=== PATIENT | female | born 1935 | race Caucasian/White ===

== ENCOUNTER → 2016-06-11 | Outpatient (CLI) | payer BC ==
[~2016-06-11] MED LIST: ACET1TAB84 PO; ASMTWH INH; ASPEC81 PO; BENZ100C84 PO; CLB100 PO; CLTP PO; EVS60 PO; FSM70 PO; LANS15CA6 PO; LIDO5DIS10 TD; METO25TA3 PO; MULT-506 PO; OMEG10007 PO; SIMV10TA2 PO; TRAM-10 PO
--- NOTE | 2016-06-11 16:26 | MAMMOGRAPHY REPORT ---
BILATERAL DIGITAL SCREENING MAMMOGRAM WITH CAD: 06/11/2016 TECHNIQUE: Current study was also evaluated with a Computer Aided Detection (CAD) system. Bilatera l CC and MLO views were obtained. COMPARISON: Comparison is made to exams dated: 06/07/2015 mammogram, 06/03/2014 mammogram, 04/17/2012 m ammogram, 05/13/2013 mammogram, 04/20/2013 mammogram, and 04/17/2011 mammogram - [facility]. BREAST COMPOSITION: The tissue of both breasts is heterogeneously dense, which may obscure small ma sses. FINDINGS: No suspicious masses, calcifications, or areas of architectural distortion are noted in e ither breast. There has been no significant interval change compared to prior exams. Bilateral rachel gn-appearing calcifications are not significantly changed. IMPRESSION: ACR BI-RADS CATEGORY 2: BENIGN There is no mammographic evidence of malignancy. A 1 year screening mammogram is recommended. The p atient will receive written notification of the results. Approximately 10% of breast cancers are not detected with mammography. A negative mammographic repor t should not delay biopsy if a clinically suggestive mass is present. Rachel Lewis M.D. ah/:06/11/2016 15:20:21 Nursing Staffing Coordinator: Mimi LOVE(R)(M), [facility] letter sent: Normal 1/2 BI-RADS Code: ACR BI-RADS Category 2: Benign
== END | disposition home or self-care (01) ==
LOC: C.MAMM 13:24
PROVIDERS: ATTEND Obstetrics & Gynecology
DX: Z12.31 Encounter for screening mammogram for malignant neoplasm of breast (principal)

== ENCOUNTER → 2016-08-15 | Outpatient (CLI) | payer BC ==
[2016-08-15 15:58] LABS: BASO % 0.1 %; BASO ABS # 0.01 K/uL (0-0.2); COMPLETE YES; EOS % 1.6 %; HEMATOCRIT 38.2 % (37-47); IG% 0.2 %; LYMPH % 25.5 %; LYMPH ABS # 2.36 K/uL (1.2-3.4); MEAN CELL VOLUME 95.5 fL (80-100); MEAN CORPUSCULAR HEMOGLOBIN 29.8 pg (25-34); MEAN CORPUSCULAR HGB CONC 31.2 g/dl (32-36); MEAN PLATELET VOLUME 10.5 fL (7.4-10.4); MONO % 7.8 %; NEUT % 64.8 %; PLATELET COUNT 258 K/uL (130-400); WHITE BLOOD COUNT 9.24 K/uL (4.8-10.8)
[2016-08-15 18:52] LABS: ALT/SGPT 21 U/L (12-78); AST/SGOT 18 U/L (15-37)
[2016-08-15 18:54] LABS: ALKALINE PHOSPHATASE 64 U/L (45-117)
== END | disposition home or self-care (01) ==
LOC: C.LAB1850 14:38
PROVIDERS: ATTEND Internal Medicine Rheumatology
DX: M06.9 Rheumatoid arthritis, unspecified (principal); M54.2 Cervicalgia; Z79.899 Other long term (current) drug therapy

== ENCOUNTER → 2017-02-13 | Outpatient (CLI) | payer BC ==
[2017-02-13 13:20] LABS: BASO % 0.2 %; BASO ABS # 0.02 K/uL (0-0.2); COMPLETE YES; EOS % 1.4 %; HEMATOCRIT 39.8 % (37-47); IG% 0.1 %; LYMPH % 23.2 %; LYMPH ABS # 1.97 K/uL (1.2-3.4); MEAN CELL VOLUME 94.5 fL (80-100); MEAN CORPUSCULAR HEMOGLOBIN 29.9 pg (25-34); MEAN CORPUSCULAR HGB CONC 31.7 g/dl (32-36); MEAN PLATELET VOLUME 10.4 fL (7.4-10.4); MONO % 7.8 %; NEUT % 67.3 %; PLATELET COUNT 274 K/uL (130-400); RED BLOOD COUNT 4.21 M/uL (4.2-5.4); WHITE BLOOD COUNT 8.49 K/uL (4.8-10.8)
[2017-02-13 13:53] LABS: ALT/SGPT 22 U/L (12-78); AST/SGOT 22 U/L (15-37); CREATININE 0.97 mg/dl (0.60-1.20)
[2017-02-13 13:54] LABS: ALKALINE PHOSPHATASE 72 U/L (45-117)
== END | disposition home or self-care (01) ==
LOC: C.LAB1850 12:07
PROVIDERS: ATTEND Internal Medicine Rheumatology
DX: Z51.81 Encounter for therapeutic drug level monitoring (principal); M06.9 Rheumatoid arthritis, unspecified; Z79.899 Other long term (current) drug therapy

== ENCOUNTER → 2017-06-10 | Outpatient (CLI) | payer BC ==
[2017-06-10 16:55] LABS: INFLUENZA B ANTIGEN Neg for Influ B (NEG)
== END | disposition home or self-care (01) ==
LOC: C.LAB1850 15:37
PROVIDERS: ATTEND Internal Medicine Pulmonary Disease
DX: J44.9 Chronic obstructive pulmonary disease, unspecified (principal); R05 Cough; J45.909 Unspecified asthma, uncomplicated; J11.1 Influenza due to unidentified influenza virus with other respiratory manifestations

== ENCOUNTER → 2017-06-17 | Outpatient (CLI) | payer BC ==
--- NOTE | 2017-06-17 16:43 | DIAGNOSTIC IMAGING REPORT ---
CHEST 2 VIEWS ROUTINE CLINICAL HISTORY: J20.9 Acute [id number] dyspnea COMPARISON STUDY: 04/11/2015 FINDINGS: Stable emphysematous change bilaterally. Scattered chronic parenchymal fibrotic change. Unchanged postoperative change right midlung. No acute or superimposed infiltrate. IMPRESSION: Emphysematous change. Chronic fibrotic change. No acute process. No significant change from the prior study. The above report was generated using voice recognition software. It may contain grammatical, syntax or spelling errors. Electronically signed by: Daniel Ramsey M.D. 06/17/2017 4:41 PM Dictated Date/Time: 06/17/2017 4:40 PM
== END | disposition home or self-care (01) ==
LOC: C.RAD1850 16:28
PROVIDERS: ATTEND Physician Assistant Medical
DX: J20.9 Acute bronchitis, unspecified (principal); R05 Cough

== ENCOUNTER → 2017-06-28 | Outpatient (CLI) | payer BC | END | disposition home or self-care (01) | LOC: C.LABSPEC 14:42 | PROVIDERS: ATTEND Physician Assistant Medical | DX: R05 Cough (principal) ==

== ENCOUNTER → 2017-07-23 | Outpatient (CLI) | payer BC ==
[~2017-07-23] MED LIST changes: +ALBU18002 PO; +ASPI81TA21 PO; +CALCTAB7 PO; +CELE100C PO; +GUAI1TAB55 PO; +LANS15TA2 PO; +LIDO1PAD2 TD; +MOME110A INH; +MOXI400T2 PO; +MULT-513 PO; +MULT-663 PO; +ONDA4TAB46 PO; +PRED-301 PO; +RALO60TA30 PO
--- NOTE | 2017-07-25 07:48 | MAMMOGRAPHY REPORT ---
BILATERAL DIGITAL SCREENING MAMMOGRAM WITH CAD: 07/23/2017 CLINICAL HISTORY: Routine screening. Patient has no complaints. TECHNIQUE: Bilateral CC and MLO views were obtained. Current study was also evaluated with a Compute r Aided Detection (CAD) system. COMPARISON: Comparison is made to exams dated: 06/11/2016 mammogram, 06/07/2015 mammogram, 06/03/2014 david mogram, 05/13/2013 mammogram, 04/20/2013 mammogram, and 04/17/2012 mammogram - [facility]. BREAST COMPOSITION: The tissue of both breasts is heterogeneously dense, which may obscure small mas ses. FINDINGS: The exam is slightly suboptimal due to inability of the patient to adequately position for the exam, particularly the MLO views. Within this limitation, there are moderate vascular calcificat ions and scattered benign rim calcifications in the breasts. No suspicious mass, architectural disto rtion or cluster of microcalcifications is seen. IMPRESSION: ACR BI-RADS CATEGORY 1: NEGATIVE There is no mammographic evidence of malignancy. A 1 year screening mammogram is recommended. The pa tient will receive written notification of the results. Approximately 10% of breast cancers are not detected with mammography. A negative mammographic report should not delay biopsy if a clinically suggestive mass is present. Shamika Acosta M.D. ay/:07/23/2017 15:02:55 Studio Set Up Worker: Mimi Barriga RT(R)(Abelino), [facility] letter sent: Normal 1/2 BI-RADS Code: ACR BI-RADS Category 1: Negative
== END | disposition home or self-care (01) ==
LOC: C.MAMM 13:24
PROVIDERS: ATTEND Internal Medicine Pulmonary Disease
DX: Z12.31 Encounter for screening mammogram for malignant neoplasm of breast (principal)

== ENCOUNTER → 2017-07-25 | Outpatient (CLI) | payer BC | END | disposition home or self-care (01) | LOC: C.LAB1850 16:20 | PROVIDERS: ATTEND Internal Medicine Pulmonary Disease | DX: R04.2 Hemoptysis (principal) ==

== ENCOUNTER → 2017-07-25 | Outpatient (CLI) | payer BC ==
--- NOTE | 2017-07-25 16:07 | DIAGNOSTIC IMAGING REPORT ---
CHEST 2 VIEWS ROUTINE CLINICAL HISTORY: Cough. COMPARISON STUDY: Chest radiograph June 17, 2017 and April 11, 2015. FINDINGS: There is no pneumothorax or pleural effusion. Postoperative findings within the right lung are noted. There is no evidence for pulmonary edema. Cardiomediastinal silhouette is normal. Incidental note is made of mild S-shaped scoliosis of the thoracolumbar spine. A 1.6 cm lucency within the left midlung with possible air-fluid level remains unchanged. This is chronic. Right infrahilar linear opacity adjacent to surgical material may reflect scar. This is unchanged. Reticulonodular interstitial thickening within the lungs has slightly increased. IMPRESSION: 1. Slight increase in reticulonodular interstitial thickening within the lungs. 2. No lobar consolidation. Electronically signed by: Cornelius Nathan M.D. 07/25/2017 4:06 PM Dictated Date/Time: 07/25/2017 4:02 PM
== END | disposition home or self-care (01) ==
LOC: C.LAB1850 15:14
PROVIDERS: ATTEND Internal Medicine Pulmonary Disease
DX: R05 Cough (principal)

== ENCOUNTER → 2017-07-30 | Outpatient (CLI) | payer BC ==
[~2017-07-30] MED LIST changes: +IPRA1AER2 INH
[2017-07-30 14:41] LABS: BASO % 0.3 %; BASO ABS # 0.02 K/uL (0-0.2); EOS % 0.4 %; EOS ABS # 0.03 K/uL (0-0.5); HEMATOCRIT 36.1 % (37-47); IG# 0.01 K/uL (0.00-0.02); LYMPH % 19.3 %; LYMPH ABS # 1.36 K/uL (1.2-3.4); MEAN CELL VOLUME 92.6 fL (80-100); MEAN CORPUSCULAR HEMOGLOBIN 30.8 pg (25-34); MEAN CORPUSCULAR HGB CONC 33.2 g/dl (32-36); MEAN PLATELET VOLUME 9.7 fL (7.4-10.4); MONO ABS # 0.56 K/uL (0.11-0.59); NEUT % 71.9 %; NEUT ABS # 5.05 K/uL (1.4-6.5); PLATELET COUNT 315 K/uL (130-400); RED CELL DISTRIBUTION WIDTH CV 14.7 % (11.5-14.5); RED CELL DISTRIBUTION WIDTH SD 49.8 fL (36.4-46.3); WHITE BLOOD COUNT 7.03 K/uL (4.8-10.8)
[2017-07-30 15:14] LABS: ALBUMIN 3.1 gm/dl (3.4-5.0); ALT/SGPT 22 U/L (12-78); AST/SGOT 22 U/L (15-37); BLOOD UREA NITROGEN 14 mg/dl (7-18); CALCIUM 8.8 mg/dl (8.5-10.1); CARBON DIOXIDE 25 mmol/L (21-32); CREATININE 0.98 mg/dl (0.60-1.20); GLUCOSE 107 mg/dl (70-99); POTASSIUM 4.3 mmol/L (3.5-5.1); SODIUM 128 mmol/L (136-145)
[2017-07-30 15:16] LABS: ALKALINE PHOSPHATASE 70 U/L (45-117); TOTAL PROTEIN 7.3 gm/dl (6.4-8.2)
== END | disposition home or self-care (01) ==
LOC: C.LAB1850 13:42
PROVIDERS: ATTEND Internal Medicine Cardiovascular Disease
DX: R04.2 Hemoptysis (principal)

== ENCOUNTER 2017-07-31 17:24 | Inpatient (IN) | payer OTHER, BC ==
[~2017-07-31] VITALS: Ht 162.6 cm; Wt 37.3 kg
[~2017-07-31 17:24] MED LIST changes: -ALBU18002 PO; -ASPI81TA21 PO; -CALCTAB7 PO; -CELE100C PO; -GUAI1TAB55 PO; -IPRA1AER2 INH; -LANS15TA2 PO; -LIDO1PAD2 TD; -MOME110A INH; -MOXI400T2 PO; -MULT-513 PO; -MULT-663 PO; -ONDA4TAB46 PO; -PRED-301 PO; -RALO60TA30 PO
[2017-07-31] MEDS ORDERED: ONDANSETRON INJ 2 MG/ML 2 ML VIAL IV STA (17:44)
[2017-07-31] MEDS ORDERED: SODIUM CHLORIDE 0.9% 1000ML 1,000 ML IV STA ×2 (17:44→20:54)
[2017-07-31] MEDS ORDERED: ALBUT/IPRATROP 3MG/0.5MG NEB 3 ML VIAL INH STA (17:44)
--- NOTE | 2017-07-31 17:54 | EMERGENCY ROOM VISIT NOTE ---
History Report prepared by Renae: Suzie King Under the Supervision of: Dr. Jacques Banks M.D. First contact with patient: 17:39 Chief Complaint: GI ASSESSMENT Stated Complaint: WEAKNESS, NAUSEA, COUGHING UP BLOOD History of Present Illness The patient is a 82 year old female who presents to the Emergency Room with complaints of a GI assessment today. The patient reports having extreme nausea and states that she has not eaten in 4 days. The patient states that she took Zofran but that it did not alleviate her nausea. The patient reports that she is not nauseous lying down, but that she gets nauseous when she stands. She also reports feeling weak and having the chills, but denies having fevers, vomiting, and burning with urination. The patient states that she has been coughing up blood and sputum, but states that there has been more blood than sputum. She reports that she has had a cough since the beginning of May, but reports that coughing up blood began about a week ago. The patient reports that her stool has been dark brown, but not black. She states that she saw her dye reel operator helper Dr. Cardona yesterday who ordered labs for the patient. The patient reports that her PCP and media analyst Dr. Mckay placed her on Bactrim, but that she stopped taking it 6 days ago because it made her too sick. She reports that she started taking 5 mg of Prednisone yesterday. The patient denies being on blood thinners. Source of History: patient Onset: today Position: other (GI system ) Quality: other (assessment) Associated Symptoms: + chills, + nausea, + weakness, No fevers, No vomiting , No urinary symptoms Review of Systems See HPI for pertinent positives and negatives. A total of ten systems were reviewed and were otherwise negative. Past Medical & Surgical Medical Problems: (1) Gastrointestinal problem Family History No pertinent family history Social History Smoking Status: Never Smoker Marital Status: Current/Historical Medications Scheduled Acetaminophen (Tylenol Arthritis Ext Rel), 650 MG PO Q8HR PRN Albuterol Sulfate (Proair Respiclick), 2 PUFF PO Q4 Aspirin Enteric Coated (Ecotrin Or Generic), 81 MG PO 2XWK Lansoprazole (Prevacid Solutab), 15 MG PO PRN Metoprolol Succ (Toprol Xl) (Toprol-Xl), 12.5 MG PO BID Mometasone Furoate (Inhalation (Asmanex 30 Metered Doses), 1 PUFF INH qp Multiple Minerals W/ Vitamins (Citracal Plus), 2 TABS PO DAILY Multivitamins/Minerals (Mvi With Minerals), 1 TAB PO DAILY Prednisone (Prednisone), 5 MG PO DAILY Raloxifene Hcl (Evista), 60 MG PO DAILY Simvastatin (Zocor), 10 MG PO QPM Scheduled PRN Celecoxib (Celebrex), 100 MG PO DAILY PRN for Pain Lidocaine (Lidocaine), 1 PATCH TD DAILY PRN for Pain Ondansetron Hcl (Zofran), 4 MG PO Q6 PRN for Nausea Allergies Coded Allergies: Meperidine (Verified Allergy, Mild, RESP ARREST, 11/02/09) Midazolam (Verified Allergy, Mild, RESP ARREST, 11/02/09) Amoxicillin (Verified Allergy, Unknown, FROM AUGMENTIN, 11/02/09) Clavulanic Acid (Verified Allergy, Unknown, 06/03/09) Replaces AUGMENTIN 250 Codeine (Verified Allergy, Unknown, 06/03/09) Penicillins (Verified Allergy, Unknown, 06/03/09) Replaces AUGMENTIN 250 Ibuprofen (Verified Adverse Reaction, Mild, UPSETS HER STOMACH, 11/02/09) Physical Exam Vital Signs Date Time Temp Pulse Resp B/P (MAP) Pulse Ox O2 Delivery O2 Flow Rate FiO2 08/01/17 00:07 86 16 179/78 94 Room Air 07/31/17 22:49 99 07/31/17 22:37 91 23 183/108 97 Room Air 07/31/17 21:04 86 23 131/88 95 Room Air 07/31/17 19:24 83 22 153/84 98 Room Air 07/31/17 18:31 77 07/31/17 17:28 36.5 83 18 147/75 96 Room Air Physical Exam GENERAL: Awake, alert, fatigued-appearing, cachectic, in no distress HENT: Normocephalic, atraumatic. Dry mucous membranes, otherwise unremarkable oropharynx. EYES: Normal conjunctiva. Sclera non-icteric. NECK: Supple. No nuchal rigidity. FROM. No JVD. RESPIRATORY: Scant, intermittent isolated wheeze, otherwise clear. CARDIAC: Regular rate, normal rhythm. Extremities warm and well perfused. Pulses equal. ABDOMEN: Soft, non-distended. No tenderness to palpation. No rebound or guarding. No masses. RECTAL: Deferred. MUSCULOSKELETAL: Chest examination reveals no tenderness. The back is symmetrical on inspection without obvious abnormality. There is no CVA tenderness to palpation. No joint edema. LOWER EXTREMITIES: Calves are equal size bilaterally and non-tender. No edema. No discoloration. NEURO: Normal sensorium. No sensory or motor deficits noted. SKIN: No rash or jaundice noted. Medical Decision & Procedures ER Provider Diagnostic Interpretation: Radiology results as stated below per my review and radiologist interpretation: CHEST ONE VIEW PORTABLE HISTORY: Generalized abdominal pain. COMPARISON: Chest 07/25/2017. FINDINGS: The lungs remain hyperexpanded. No pleural effusions. No pneumothorax. The heart remains mildly enlarged. Suture material seen within the right lung. Scattered irregular densities within the bilateral midlung zones persist. No new focal lung consolidations. No pleural effusions. Mild S-shaped scoliosis of the upper lumbar spine. IMPRESSION: No change compared to the prior study. No acute process within the chest. Postoperative changes and a few scattered midlung zone densities persist. No new focal lung consolidations. Electronically signed by: Roger Sleby M.D. 07/31/2017 6:18 PM Dictated Date/Time: 07/31/2017 6:[address] ANGIOGRAM OF THE CHEST CLINICAL HISTORY: Atypical chest pain. Hemoptysis. COMPARISON STUDY: Chest x-ray dated 07/31/2017. TECHNIQUE: Following the IV administration of 94 cc of Optiray 320, CT angiogram of the chest was performed from the upper abdomen to the thoracic inlet utilizing the pulmonary embolus protocol. Images are reviewed in the axial, sagittal, and coronal planes. 3-D MIPS images are created and assessed. IV contrast was administered without complication. A dose lowering technique was utilized adhering to the principles of ALARA. The examination is degraded by motion artifact, as well as by streak artifact from the arms which could not be elevated above the chest. CT DOSE: 439.47 mGy.cm FINDINGS: Thyroid: Imaged portions of the thyroid gland are normal in size and attenuation. Thoracic aorta: There is mild atherosclerotic calcification of the thoracic aorta, which is normal in caliber and demonstrates standard 3-vessel arch anatomy. No dissection is seen. Pulmonary vasculature: The main pulmonary arteries appear dilated suggesting pulmonary artery hypertension. There are no filling defects identified in main, lobar, or segmental pulmonary branches to suggest pulmonary embolus. Heart: The heart is mildly enlarged and there is a small pericardial effusion. Lungs and pleural spaces: Evaluation the lung parenchyma is modestly degraded by motion artifact. Apical scarring is observed. There is significant fibrotic change/scarring with bronchiectasis is identified in the right middle lobe and lingula. Milder similar-appearing changes are present in the anterior right lower lobe. Postoperative change is noted in the right middle lobe. There are numerous foci of patchy tree-in-bud nodularity identified bilaterally, greatest in the right upper lobe seen on image #253. Numerous tiny pulmonary nodules and calcified granulomas are identified. There is an 11 mm spiculated nodule in the left lower lobe seen on image #171. Fluid/secretions are noted in the left lower lobe bronchi. The trachea appears clear. Mediastinum: There is no mediastinal lymphadenopathy. Natalya: Clear. Axillae: There is no axillary lymphadenopathy. Upper abdomen: Partially visualized upper abdominal viscera is within normal limits. Skeletal structures: The skeletal structures are osteopenic. Degenerative change and mild hyperkyphosis are noted in the thoracic spine. No lytic or blastic bony lesions are seen. A pectus deformity is noted. Soft tissues: The patient is cachectic. IMPRESSION: 1. Mildly streak and motion compromised examination. 2. There is no evidence of pulmonary embolus in the main, lobar, or segmental pulmonary arteries. 3. There are fibrotic changes identified as above, greatest in the right middle lobe and lingula. These are likely chronic and suggests a chronic infectious process such as GRANT. Postsurgical change is noted in the right middle lobe. Clinical and pathologic correlation will be required. 4. There are numerous foci of tree-in-bud nodularity seen bilaterally, greatest in the upper lobes. The appearance suggests an infectious/inflammatory pneumonitis. Clinical correlation will be required. 5. There is an 11 mm spiculated nodule in the left lower lobe, as well as additional scattered smaller nodules. These are pathologically indeterminant and may be on an inflammatory basis. A 3 month follow-up chest CT is recommended for reassessment as neoplasm is not excluded. 6. Additional findings as above. Electronically signed by: Raulito Anderson M.D. 07/31/2017 7:13 PM Dictated Date/Time: 07/31/2017 7:[address] SCAN OF THE ABDOMEN AND PELVIS WITH IV CONTRAST CLINICAL HISTORY: Nausea and vomiting. Upper abdominal pain. COMPARISON STUDY: No priors. TECHNIQUE: Following the IV administration of 94 cc of Optiray 320, CT scan of the abdomen and pelvis is performed from the lung bases to the proximal femora. Images are reviewed in the axial, sagittal, and coronal planes. IV contrast was administered without complication. A dose lowering technique was utilized adhering to the principles of ALARA. FINDINGS: Lung bases: The heart is mildly enlarged and there is a small pericardial effusion. Fibrotic change with nodularity bronchiectasis are identified the lung bases, greatest in the right middle lobe and lingula. Scattered calcified granulomas are observed. No pleural effusion is identified. Foci of tree-in-bud nodularity are present both lung bases. Postoperative changes partially visualized in the right middle lobe. Liver: The contrast-enhanced liver is normal in size, contour, and attenuation. There is no intrahepatic biliary ductal dilatation. The hepatic veins and portal veins are patent. Gallbladder: Unremarkable. Spleen: Normal in size and attenuation. Pancreas: Moderately atrophic and grossly unremarkable. Adrenal glands: Unremarkable. Kidneys: The contrast enhanced kidneys are atrophic and without hydronephrosis. Bilateral extrarenal pelvises are incidentally noted. The kidneys enhance symmetrically. Small focus of cortical scarring are present in both kidneys. A 12 mm cyst is seen in the right lower pole. Additional scattered subcentimeter cortical hypodensities also likely represent cysts but are too small for definitive characterization. Abdominal vasculature: The abdominal aorta is normal in course and caliber noting moderate to advanced atherosclerotic calcification. Bowel: There is moderate colonic diverticulosis without CT evidence of acute diverticulitis no bowel obstruction is seen. The appendix is not identified and reported surgically absent. Peritoneum: There is no intraperitoneal free air or abdominal ascites. Lymphadenopathy: None. Pelvic viscera: The bladder, uterus, and adnexa are normal as visualized. There is a small volume of free fluid in the pelvis. Skeletal structures: The skeletal structures are osteopenic. There is moderate lumbosacral spondylosis as well as mild scoliosis. Grade 1 anterolisthesis is noted at L4-L5. No lytic or blastic lesions are seen. IMPRESSION: 1. There is a small volume of free fluid in the pelvis. This is a nonspecific finding and may be on a reactive basis. 2. Moderate colonic diverticulosis without CT evidence of acute diverticulitis. 3. Foci of tree-in-bud nodularity are present both lung bases and suggest infectious/inflammatory pneumonitis. See report of chest CT performed concurrently for detailed intrathoracic findings. 4. Additional findings as above. Electronically signed by: Raulito Anderson M.D. 07/31/2017 7:21 PM Dictated Date/Time: 07/31/2017 7:16 PM Laboratory Results 07/31/17 18:07 Red Blood Count 4.09, Mean Corpuscular Volume 90.0, Mean Corpuscular Hemoglobin 31.3, Mean Corpuscular Hemoglobin Concent 34.8, Mean Platelet Volume 9.5, Neutrophils (%) (Auto) 82.3, Lymphocytes (%) (Auto) 14.2, Monocytes (%) (Auto) 3.2, Eosinophils (%) (Auto) 0.0, Basophils (%) (Auto) 0.0, Neutrophils # (Auto) 5.93, Lymphocytes # (Auto) 1.02, Monocytes # (Auto) 0.23, Eosinophils # (Auto) 0.00, Basophils # (Auto) 0.00 Test 07/31/17 18:07 07/31/17 18:08 07/31/17 18:11 07/31/17 18:47 White Blood Count 7.20 K/uL (4.8-10.8) Red Blood Count 4.09 M/uL (4.2-5.4) Hemoglobin 12.8 g/dL (12.0-16.0) Hematocrit 36.8 % (37-47) Mean Corpuscular Volume 90.0 fL (80-100) Mean Corpuscular Hemoglobin 31.3 pg (25-34) Mean Corpuscular Hemoglobin Concent 34.8 g/dl (32-36) Platelet Count 296 K/uL (130-400) Mean Platelet Volume 9.5 fL (7.4-10.4) Neutrophils (%) (Auto) 82.3 % Lymphocytes (%) (Auto) 14.2 % Monocytes (%) (Auto) 3.2 % Eosinophils (%) (Auto) 0.0 % Basophils (%) (Auto) 0.0 % Neutrophils # (Auto) 5.93 K/uL (1.4-6.5) Lymphocytes # (Auto) 1.02 K/uL (1.2-3.4) Monocytes # (Auto) 0.23 K/uL (0.11-0.59) Eosinophils # (Auto) 0.00 K/uL (0-0.5) Basophils # (Auto) 0.00 K/uL (0-0.2) RDW Standard Deviation 46.3 fL (36.4-46.3) RDW Coefficient of Variation 14.0 % (11.5-14.5) Immature Granulocyte % (Auto) 0.3 % Immature Granulocyte # (Auto) 0.02 K/uL (0.00-0.02) Lactic Acid Level 1.1 mmol/L (0.4-2.0) Phosphorus Level 2.9 mg/dl (2.5-4.9) Total Bilirubin 0.3 mg/dl (0.2-1) Direct Bilirubin < 0.1 mg/dl (0-0.2) Aspartate Amino Transf (AST/SGOT) 24 U/L (15-37) Alanine Aminotransferase (ALT/SGPT) 24 U/L (12-78) Alkaline Phosphatase 72 U/L (45-117) Total Protein 7.7 gm/dl (6.4-8.2) Albumin 3.3 gm/dl (3.4-5.0) Lipase 250 U/L (73-393) Osmolality 270 mOsm/kg (280-300) Urine Color YELLOW Urine Appearance CLEAR (CLEAR) Urine pH 7.0 (4.5-7.5) Urine Specific [place] 1.007 (1.000-1.030) Urine Protein NEG (NEG) Urine Glucose (UA) NEG (NEG) Urine Ketones NEG (NEG) Urine Occult Blood NEG (NEG) Urine Nitrite NEG (NEG) Urine Bilirubin NEG (NEG) Urine Urobilinogen NEG (NEG) Urine Leukocyte Esterase NEG (NEG) Urine Osmolality 197 mOms/kg (500-800) Test 07/31/17 20:01 Influenza Type A (RT-PCR) Neg for Influ A (NEG) Influenza Type B (RT-PCR) Neg for Influ B (NEG) Laboratory results reviewed by me Medications Administered Medications (Trade) Dose Ordered Sig/Vishal Route Start Time Stop Time Status Last Admin Dose Admin Sodium Chloride 1,000 ml @ 999 mls/hr Q1H1M STAT IV 07/31/17 17:44 07/31/17 18:44 DC 07/31/17 18:14 999 MLS/HR Ondansetron HCl (Zofran Inj) 4 mg NOW STAT IV 07/31/17 17:44 07/31/17 17:54 DC 07/31/17 18:14 4 MG Albuterol/ Ipratropium (Duoneb) 3 ml NOW STAT INH 07/31/17 17:44 07/31/17 17:54 DC 07/31/17 18:14 3 ML Famotidine (Pepcid Tab) 20 mg NOW ONCE PO 07/31/17 18:00 07/31/17 18:01 DC 07/31/17 18:14 20 MG Famotidine (Pepcid Tab) 20 mg NOW ONCE PO 07/31/17 19:30 07/31/17 19:45 DC 07/31/17 19:32 20 MG Lidocaine HCl (Viscous Lidocaine 2% Soln) 20 ml STK-MED ONCE .ROUTE 07/31/17 20:02 07/31/17 20:03 DC 07/31/17 20:08 20 ML Al Hydroxide/Mg Hydroxide (Maalox Susp) 30 ml STK-MED ONCE .ROUTE 07/31/17 20:02 07/31/17 20:03 DC 07/31/17 20:08 30 ML Magnesium Sulfate (Magnesium Sulfate) 2 gm NOW STAT IV 07/31/17 20:25 07/31/17 20:26 DC 07/31/17 21:02 2 GM Sodium Chloride 1,000 ml @ 999 mls/hr Q1H1M STAT IV 07/31/17 20:54 07/31/17 21:54 DC 07/31/17 21:02 999 MLS/HR ECG Per My Interpretation Indication: weakness Rate (beats per minute): 74 Rhythm: sinus with SA Findings: no acute ischemic change, other (normal axis ) ED Course 1742: The patient was evaluated in room C7. A complete history and physical exam was performed. 1935: I reevaluated the patient. 2057: I checked on the patient and updated her and her daughter. 2249: Upon reexamination, the patient was resting. I discussed the test results and treatment plan with her and her family. The patient will be evaluated for further management. Medical Decision I reviewed the patient's past medical history, medications, and the nursing notes as described above. Differential diagnosis: Etiologies such as appendicitis, diverticulitis, PUD, biliary pathology, UTI, pancreatitis, obstruction, mesenteric ischemia, aortic pathology, inflammatory bowel disease, renal colic, infections, reactive airway disease, pneumonia, pneumothorax, COPD, CHF, cardiac ischemia, pulmonary embolism, musculoskeletal, gastrointestinal, as well as others were entertained. The patient is an 82-year-old woman with a past medical history of recurrent pulmonary infections including GRANT since emergency department with persistent cough as well as fatigue and nausea per hpi. Note the patient reports that she has been managed for her cough and mild hemoptysis which is now resolved outpatient had begun a course of Bactrim however stopped it after several days due to her nausea. On arrival the patient is fatigued and uncomfortable but no acute distress, afebrile stable vital signs. On exam the patient appears clinically dry. WBC within normal limits. Sodium demonstrates progressing hyponatremia of 125 down from 127 yesterday. Per serum/sodium symptoms it appears that the patient is able to diurese and thus SIADH unlikely. Thus patient was given further IV fluid hydration. Patient did report some improvement after hydration, Pepcid and GI cocktail, still reports nausea and generalized weakness. Thus given the patient's symptomatic hyponatremia will admit the patient for further management. Dr. Woods, [facility] hospitalist, will evaluate the patient for admission. Medication Reconcilliation Current Medication List: was personally reviewed by me Blood Pressure Screening Patient's blood pressure: Elevated blood pressure will be monitored by hospitalist Consults Time Called: [phone] Consulting Physician: Corey Woods- [place] Returned Call: 0 I discussed the patient with Dr. Woods - He will evaluate the patient for further treatment. Impression Primary Impression: Hyponatremia Additional Impression: Dehydration Scribe Attestation The scribe's documentation has been prepared under my direction and personally reviewed by me in its entirety. I confirm that the note above accurately reflects all work, treatment, procedures, and medical decision making performed by me. Departure Information Dispostion Being Evaluated By Hospitalist Referrals Kuldip Mckay M.D. (PCP) Patient Instructions My [facility] Problem Qualifiers
[2017-07-31] MEDS ORDERED: OPTIRAY 320 IV PRN (18:00)
[2017-07-31] MEDS ORDERED: FAMOTIDINE 20 MG TAB PO ONE ×2 (18:00→19:30)
--- NOTE | 2017-07-31 18:19 | DIAGNOSTIC IMAGING REPORT ---
CHEST ONE VIEW PORTABLE HISTORY: Generalized abdominal pain. COMPARISON: Chest 07/25/2017. FINDINGS: The lungs remain hyperexpanded. No pleural effusions. No pneumothorax. The heart remains mildly enlarged. Suture material seen within the right lung. Scattered irregular densities within the bilateral midlung zones persist. No new focal lung consolidations. No pleural effusions. Mild S-shaped scoliosis of the upper lumbar spine. IMPRESSION: No change compared to the prior study. No acute process within the chest. Postoperative changes and a few scattered midlung zone densities persist. No new focal lung consolidations. Electronically signed by: Roger Selby M.D. 07/31/2017 6:18 PM Dictated Date/Time: 07/31/2017 6:14 PM
[2017-07-31 18:29] LABS: HEMATOCRIT 36.8 % (37-47); HEMOGLOBIN 12.8 g/dL (12.0-16.0); IG# 0.02 K/uL (0.00-0.02); LYMPH % 14.2 %; LYMPH ABS # 1.02 K/uL (1.2-3.4); MEAN CORPUSCULAR HEMOGLOBIN 31.3 pg (25-34); MEAN CORPUSCULAR HGB CONC 34.8 g/dl (32-36); MEAN PLATELET VOLUME 9.5 fL (7.4-10.4); MONO % 3.2 %; MONO ABS # 0.23 K/uL (0.11-0.59); NEUT % 82.3 %; NEUT ABS # 5.93 K/uL (1.4-6.5); PLATELET COUNT 296 K/uL (130-400); RED CELL DISTRIBUTION WIDTH SD 46.3 fL (36.4-46.3)
[2017-07-31 18:41] LABS: ALBUMIN 3.3 gm/dl (3.4-5.0); ALT/SGPT 24 U/L (12-78); BLOOD UREA NITROGEN 15 mg/dl (7-18); CALCIUM 8.8 mg/dl (8.5-10.1); CARBON DIOXIDE 27 mmol/L (21-32); CREATININE 0.99 mg/dl (0.60-1.20); GLUCOSE 123 mg/dl (70-99); LIPASE 250 U/L (73-393); POTASSIUM 4.5 mmol/L (3.5-5.1); SODIUM 125 mmol/L (136-145)
[2017-07-31 18:44] LABS: ALKALINE PHOSPHATASE 72 U/L (45-117); AST/SGOT 24 U/L (15-37); TOTAL PROTEIN 7.7 gm/dl (6.4-8.2)
[2017-07-31] MEDS ORDERED: ALBU18002 PO (18:58)
[2017-07-31] MEDS ORDERED: CELE100C PO (18:58)
[2017-07-31] MEDS ORDERED: LANS15TA2 PO (18:58)
[2017-07-31] MEDS ORDERED: GUAI1TAB55 PO (18:58)
[2017-07-31] MEDS ORDERED: LIDO1PAD2 TD (18:58)
[2017-07-31] MEDS ORDERED: MOME110A INH (18:58)
[2017-07-31] MEDS ORDERED: RALO60TA30 PO (18:58)
[2017-07-31] MEDS ORDERED: CALCTAB7 PO (18:58)
[2017-07-31] MEDS ORDERED: MOXI400T2 PO (18:58)
[2017-07-31] MEDS ORDERED: MULT-513 PO (18:58)
[2017-07-31] MEDS ORDERED: ASPI81TA21 PO (18:58)
[2017-07-31] MEDS ORDERED: PRED-301 PO (18:58)
[2017-07-31] MEDS ORDERED: ONDA4TAB46 PO (19:11)
[2017-07-31] MEDS ORDERED: MULT-663 PO (19:11)
--- NOTE | 2017-07-31 19:15 | DIAGNOSTIC IMAGING REPORT ---
CT ANGIOGRAM OF THE CHEST CLINICAL HISTORY: Atypical chest pain. Hemoptysis. COMPARISON STUDY: Chest x-ray dated 07/31/2017. TECHNIQUE: Following the IV administration of 94 cc of Optiray 320, CT angiogram of the chest was performed from the upper abdomen to the thoracic inlet utilizing the pulmonary embolus protocol. Images are reviewed in the axial, sagittal, and coronal planes. 3-D MIPS images are created and assessed. IV contrast was administered without complication. A dose lowering technique was utilized adhering to the principles of ALARA. The examination is degraded by motion artifact, as well as by streak artifact from the arms which could not be elevated above the chest. CT DOSE: 439.47 mGy.cm FINDINGS: Thyroid: Imaged portions of the thyroid gland are normal in size and attenuation. Thoracic aorta: There is mild atherosclerotic calcification of the thoracic aorta, which is normal in caliber and demonstrates standard 3-vessel arch anatomy. No dissection is seen. Pulmonary vasculature: The main pulmonary arteries appear dilated suggesting pulmonary artery hypertension. There are no filling defects identified in main, lobar, or segmental pulmonary branches to suggest pulmonary embolus. Heart: The heart is mildly enlarged and there is a small pericardial effusion. Lungs and pleural spaces: Evaluation the lung parenchyma is modestly degraded by motion artifact. Apical scarring is observed. There is significant fibrotic change/scarring with bronchiectasis is identified in the right middle lobe and lingula. Milder similar-appearing changes are present in the anterior right lower lobe. Postoperative change is noted in the right middle lobe. There are numerous foci of patchy tree-in-bud nodularity identified bilaterally, greatest in the right upper lobe seen on image #253. Numerous tiny pulmonary nodules and calcified granulomas are identified. There is an 11 mm spiculated nodule in the left lower lobe seen on image #171. Fluid/secretions are noted in the left lower lobe bronchi. The trachea appears clear. Mediastinum: There is no mediastinal lymphadenopathy. Natalya: Clear. Axillae: There is no axillary lymphadenopathy. Upper abdomen: Partially visualized upper abdominal viscera is within normal limits. Skeletal structures: The skeletal structures are osteopenic. Degenerative change and mild hyperkyphosis are noted in the thoracic spine. No lytic or blastic bony lesions are seen. A pectus deformity is noted. Soft tissues: The patient is cachectic. IMPRESSION: 1. Mildly streak and motion compromised examination. 2. There is no evidence of pulmonary embolus in the main, lobar, or segmental pulmonary arteries. 3. There are fibrotic changes identified as above, greatest in the right middle lobe and lingula. These are likely chronic and suggests a chronic infectious process such as GRANT. Postsurgical change is noted in the right middle lobe. Clinical and pathologic correlation will be required. 4. There are numerous foci of tree-in-bud nodularity seen bilaterally, greatest in the upper lobes. The appearance suggests an infectious/inflammatory pneumonitis. Clinical correlation will be required. 5. There is an 11 mm spiculated nodule in the left lower lobe, as well as additional scattered smaller nodules. These are pathologically indeterminant and may be on an inflammatory basis. A 3 month follow-up chest CT is recommended for reassessment as neoplasm is not excluded. 6. Additional findings as above. Electronically signed by: Raulito Anderson M.D. 07/31/2017 7:13 PM Dictated Date/Time: 07/31/2017 7:06 PM
--- NOTE | 2017-07-31 19:23 | DIAGNOSTIC IMAGING REPORT ---
CT SCAN OF THE ABDOMEN AND PELVIS WITH IV CONTRAST CLINICAL HISTORY: Nausea and vomiting. Upper abdominal pain. COMPARISON STUDY: No priors. TECHNIQUE: Following the IV administration of 94 cc of Optiray 320, CT scan of the abdomen and pelvis is performed from the lung bases to the proximal femora. Images are reviewed in the axial, sagittal, and coronal planes. IV contrast was administered without complication. A dose lowering technique was utilized adhering to the principles of ALARA. FINDINGS: Lung bases: The heart is mildly enlarged and there is a small pericardial effusion. Fibrotic change with nodularity bronchiectasis are identified the lung bases, greatest in the right middle lobe and lingula. Scattered calcified granulomas are observed. No pleural effusion is identified. Foci of tree-in-bud nodularity are present both lung bases. Postoperative changes partially visualized in the right middle lobe. Liver: The contrast-enhanced liver is normal in size, contour, and attenuation. There is no intrahepatic biliary ductal dilatation. The hepatic veins and portal veins are patent. Gallbladder: Unremarkable. Spleen: Normal in size and attenuation. Pancreas: Moderately atrophic and grossly unremarkable. Adrenal glands: Unremarkable. Kidneys: The contrast enhanced kidneys are atrophic and without hydronephrosis. Bilateral extrarenal pelvises are incidentally noted. The kidneys enhance symmetrically. Small focus of cortical scarring are present in both kidneys. A 12 mm cyst is seen in the right lower pole. Additional scattered subcentimeter cortical hypodensities also likely represent cysts but are too small for definitive characterization. Abdominal vasculature: The abdominal aorta is normal in course and caliber noting moderate to advanced atherosclerotic calcification. Bowel: There is moderate colonic diverticulosis without CT evidence of acute diverticulitis no bowel obstruction is seen. The appendix is not identified and reported surgically absent. Peritoneum: There is no intraperitoneal free air or abdominal ascites. Lymphadenopathy: None. Pelvic viscera: The bladder, uterus, and adnexa are normal as visualized. There is a small volume of free fluid in the pelvis. Skeletal structures: The skeletal structures are osteopenic. There is moderate lumbosacral spondylosis as well as mild scoliosis. Grade 1 anterolisthesis is noted at L4-L5. No lytic or blastic lesions are seen. IMPRESSION: 1. There is a small volume of free fluid in the pelvis. This is a nonspecific finding and may be on a reactive basis. 2. Moderate colonic diverticulosis without CT evidence of acute diverticulitis. 3. Foci of tree-in-bud nodularity are present both lung bases and suggest infectious/inflammatory pneumonitis. See report of chest CT performed concurrently for detailed intrathoracic findings. 4. Additional findings as above. Electronically signed by: Raulito Anderson M.D. 07/31/2017 7:21 PM Dictated Date/Time: 07/31/2017 7:16 PM
[2017-07-31] MEDS ORDERED: GI COCKTAIL PO STA (19:35)
[2017-07-31] MEDS ORDERED: ALUMINUM/MAGNESIUM SUSP 30 ML UDC ONE (20:02)
[2017-07-31] MEDS ORDERED: LIDOCAINE HCL 2% VISC SOLN 20 ML UDC ONE (20:02)
[2017-07-31 20:13] LABS: PHOSPHORUS 2.9 mg/dl (2.5-4.9)
[2017-07-31] MEDS ORDERED: MAGNESIUM SULFATE 1GM / D5W 1 GM BAG IV STA (20:25)
[2017-07-31 21:05] LABS: INFLUENZA A PCR Neg for Influ A (NEG); INFLUENZA B PCR Neg for Influ B (NEG)
[2017-08-01] VITALS (13 sets, daily range): BP systolic 100–167; BP diastolic 68–92; PULSE 66–92; TEMP 36.3–36.8; O2SAT 91–98; Ht 162.6 cm; Wt 37.3 kg
[2017-08-01] MEDS ORDERED: MAGNESIUM HYDROXIDE SUSP 30 ML UDC PO PRN (00:30)
[2017-08-01] MEDS ORDERED: POLYETHYLENE (MIRALAX) 17 GM PACK PO PRN (00:30)
[2017-08-01] MEDS ORDERED: LIDODERM (LIDOCAINE) PATCH 5% TD PRN (00:30)
[2017-08-01] MEDS ORDERED: ACETAMINOPHEN 325 MG TAB PO PRN (00:30)
[2017-08-01] MEDS ORDERED: ONDANSETRON INJ 2 MG/ML 2 ML VIAL IV PRN (00:30)
[2017-08-01] MEDS ORDERED: ONDANSETRON 4 MG TAB PO PRN (00:30)
[2017-08-01] MEDS ORDERED: ALUMINUM/MAGNESIUM/SIMETH (MAALOX MAX) 30 ML UDC PO PRN (00:30)
--- NOTE | 2017-08-01 00:30 | History and Physical ---
History & Physical Date & Time of Service: Jul 31, 2017 at 23:57 Chief Complaint: Weakness, Nausea, Coughing Up Blood Primary Care Physician: Kuldip Mckay M.D. History of Present Illness Source: patient Pt is an 82M with a PMHx of JRA, Mycobacterium Avium infection, Takustabo's Cardiomyopathy, Melanoma who presents to the ER with a one month history of nausea without vomiting which has acutely worsened in the past week. In the past week the patient has also had chills, extreme fatigue and hemoptysis. The patient in the past two months has completed a course of Moxifloxacin and half a course of Bactrim for pulmonary infections. She follows with Dr. Mckay in [place] . She also sees Dr. Eckert for her cardiomyopathy and "fast rhythm.". She has seen Dr. Eckert and Dr. Mckay both within the past week. She was started on 5mg Prednisone to improve her energy level. Patient states she hasn't been eating or drinking much this week. Pt has taken Zofran which hasn't helped her. The patient is present with her daughter in the room who states that her mom has had a wobbly gait and she has never seen her mom this week. Per chart review the patient has zero recent inpatient stays. Pt states that the 2L NSS bolus and/or Mg infusions gave her chills. PMHx: Broncoscopy confirmed chronic M. Avium infection. Pt went into respiratory arrest and almost on the table in 2002. OBGYN: Regular paps have been normal. SHX: never smoker but has a 13 pack year exposure history. Baseline pt does all ADLs and paints. ROS: No recent tick bites, no recent weight loss, pt's max weight was around 115 lbs in her life. Pt reports that she does pee a lot, especially at night, but denies dysuria. Pt never had a colonoscopy but did do fecal immunochemical testing. Pt denies neurological deficits. Past Medical/Surgical History Medical Problems: (1) Gastrointestinal problem Family History No pertinent family history Social History Smoking Status: Never Smoker Smokeless Tobacco Use: No Alcohol Use: none Drug Use: none (mike) Marital Status: Occupational Status: retired Immunizations History of Influenza Vaccine: Yes History of Tetanus Vaccine?: Yes History of Pneumococcal: Yes History of Hepatitis B Vaccine: No Allergies Coded Allergies: Meperidine (Verified Allergy, Mild, RESP ARREST, 11/02/09) Midazolam (Verified Allergy, Mild, RESP ARREST, 11/02/09) Amoxicillin (Verified Allergy, Unknown, FROM AUGMENTIN, 11/02/09) Clavulanic Acid (Verified Allergy, Unknown, 06/03/09) Replaces AUGMENTIN 250 Codeine (Verified Allergy, Unknown, 06/03/09) Penicillins (Verified Allergy, Unknown, 06/03/09) Replaces AUGMENTIN 250 Ibuprofen (Verified Adverse Reaction, Mild, UPSETS HER STOMACH, 11/02/09) Home Medications Scheduled Acetaminophen (Tylenol Arthritis Ext Rel), 650 MG PO Q8HR PRN Albuterol Sulfate (Proair Respiclick), 2 PUFF PO Q4 Aspirin Enteric Coated (Ecotrin Or Generic), 81 MG PO 2XWK Lansoprazole (Prevacid Solutab), 15 MG PO PRN Metoprolol Succ (Toprol Xl) (Toprol-Xl), 12.5 MG PO BID Mometasone Furoate (Inhalation (Asmanex 30 Metered Doses), 1 PUFF INH qp Multiple Minerals W/ Vitamins (Citracal Plus), 2 TABS PO DAILY Multivitamins/Minerals (Mvi With Minerals), 1 TAB PO DAILY Prednisone (Prednisone), 5 MG PO DAILY Raloxifene Hcl (Evista), 60 MG PO DAILY Simvastatin (Zocor), 10 MG PO QPM Scheduled PRN Celecoxib (Celebrex), 100 MG PO DAILY PRN for Pain Lidocaine (Lidocaine), 1 PATCH TD DAILY PRN for Pain Ondansetron Hcl (Zofran), 4 MG PO Q6 PRN for Nausea Review of Systems Constitutional: + chills, + weakness, + fatigue, No fever, No sweats, No weight loss Respiratory: + cough, + sputum, + wheezing, + shortness of breath, + dyspnea on exertion, + hemoptysis Cardiovascular: No chest pain, No edema, No claudication, No palpitations Abdomen: No pain, No nausea, No vomiting, No diarrhea, No constipation Musculoskeletal: No joint pain Genitourinary - Female: No dysuria Endocrine: + excessive urination (at night, denies dysuria. ) Integumentary: No rash Physical Exam Vital Signs Date Time Temp Pulse Resp B/P (MAP) Pulse Ox O2 Delivery O2 Flow Rate FiO2 07/31/17 22:49 99 07/31/17 22:37 91 23 183/108 97 Room Air 07/31/17 21:04 86 23 131/88 95 Room Air 07/31/17 19:24 83 22 153/84 98 Room Air 07/31/17 18:31 77 07/31/17 17:28 36.5 83 18 147/75 96 Room Air General Appearance: WD/WN, + cachetic, + thin Head: normocephalic, atraumatic Eyes: normal inspection, PERRL, EOMI ENT: normal ENT inspection, pharynx normal Neck: supple, no adenopathy, thyroid normal, no JVD Respiratory/Chest: chest non-tender, lungs clear, normal breath sounds, no respiratory distress, no accessory muscle use Cardiovascular: regular rate, rhythm, no edema, no gallop, no JVD, no murmur, normal peripheral pulses Abdomen/GI: normal bowel sounds, non tender, soft, no organomegaly, no pulsatile mass Back: normal inspection, no CVA tenderness, no muscle spasm Extremities/Musculoskelatal: no calf tenderness, + pertinent finding (severe RA in both hands and both feet. 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, no motor/sensory deficits, alert, normal mood/affect, oriented x 3 Skin: normal color, warm/dry Diagnostics Laboratory Results Results Past 24 Hours Test 07/31/17 18:07 07/31/17 18:08 07/31/17 18:11 07/31/17 18:47 Range/Units White Blood Count 7.20 4.8-10.8 K/uL Red Blood Count 4.09 4.2-5.4 M/uL Hemoglobin 12.8 12.0-16.0 g/dL Hematocrit 36.8 37-47 % Mean Corpuscular Volume 90.0 80-100 fL Mean Corpuscular Hemoglobin 31.3 25-34 pg Mean Corpuscular Hemoglobin Concent 34.8 32-36 g/dl Platelet Count 296 130-400 K/uL Mean Platelet Volume 9.5 7.4-10.4 fL Neutrophils (%) (Auto) 82.3 % Lymphocytes (%) (Auto) 14.2 % Monocytes (%) (Auto) 3.2 % Eosinophils (%) (Auto) 0.0 % Basophils (%) (Auto) 0.0 % Neutrophils # (Auto) 5.93 1.4-6.5 K/uL Lymphocytes # (Auto) 1.02 1.2-3.4 K/uL Monocytes # (Auto) 0.23 0.11-0.59 K/uL Eosinophils # (Auto) 0.00 0-0.5 K/uL Basophils # (Auto) 0.00 0-0.2 K/uL RDW Standard Deviation 46.3 36.4-46.3 fL RDW Coefficient of Variation 14.0 11.5-14.5 % Immature Granulocyte % (Auto) 0.3 % Immature Granulocyte # (Auto) 0.02 0.00-0.02 K/uL Lactic Acid Level 1.1 0.4-2.0 mmol/L Sodium Level 125 136-145 mmol/L Potassium Level 4.5 3.5-5.1 mmol/L Chloride Level 92 98-107 mmol/L Carbon Dioxide Level 27 21-32 mmol/L Anion Gap 7.0 3-11 mmol/L Blood Urea Nitrogen 15 7-18 mg/dl Creatinine 0.99 0.60-1.20 mg/dl Est Creatinine Clear Calc Drug Dose 26.0 ml/min Estimated GFR () 61.9 Estimated GFR (Non- 53.4 BUN/Creatinine Ratio 14.8 10-20 Random Glucose 123 70-99 mg/dl Calcium Level 8.8 8.5-10.1 mg/dl Phosphorus Level 2.9 2.5-4.9 mg/dl Magnesium Level 1.6 1.8-2.4 mg/dl Total Bilirubin 0.3 0.2-1 mg/dl Direct Bilirubin < 0.1 0-0.2 mg/dl Aspartate Amino Transf (AST/SGOT) 24 15-37 U/L Alanine Aminotransferase (ALT/SGPT) 24 12-78 U/L Alkaline Phosphatase 72 45-117 U/L Total Protein 7.7 6.4-8.2 gm/dl Albumin 3.3 3.4-5.0 gm/dl Lipase 250 73-393 U/L Osmolality 270 280-300 mOsm/kg Urine Color YELLOW Urine Appearance CLEAR CLEAR Urine pH 7.0 4.5-7.5 Urine Specific [place] 1.007 1.000-1.030 Urine Protein NEG NEG Urine Glucose (UA) NEG NEG Urine Ketones NEG NEG Urine Occult Blood NEG NEG Urine Nitrite NEG NEG Urine Bilirubin NEG NEG Urine Urobilinogen NEG NEG Urine Leukocyte Esterase NEG NEG Urine Osmolality 197 500-800 mOms/kg Test 07/31/17 20:01 Range/Units Influenza Type A (RT-PCR) Neg for Influ A NEG Influenza Type B (RT-PCR) Neg for Influ B NEG Diagnostic Radiology CT SCAN OF THE ABDOMEN AND PELVIS WITH IV CONTRAST CLINICAL HISTORY: Nausea and vomiting. Upper abdominal pain. COMPARISON STUDY: No priors. TECHNIQUE: Following the IV administration of 94 cc of Optiray 320, CT scan of the abdomen and pelvis is performed from the lung bases to the proximal femora. Images are reviewed in the axial, sagittal, and coronal planes. IV contrast was administered without complication. A dose lowering technique was utilized adhering to the principles of ALARA. FINDINGS: Lung bases: The heart is mildly enlarged and there is a small pericardial effusion. Fibrotic change with nodularity bronchiectasis are identified the lung bases, greatest in the right middle lobe and lingula. Scattered calcified granulomas are observed. No pleural effusion is identified. Foci of tree-in-bud nodularity are present both lung bases. Postoperative changes partially visualized in the right middle lobe. Liver: The contrast-enhanced liver is normal in size, contour, and attenuation. There is no intrahepatic biliary ductal dilatation. The hepatic veins and portal veins are patent. Gallbladder: Unremarkable. Spleen: Normal in size and attenuation. Pancreas: Moderately atrophic and grossly unremarkable. Adrenal glands: Unremarkable. Kidneys: The contrast enhanced kidneys are atrophic and without hydronephrosis. Bilateral extrarenal pelvises are incidentally noted. The kidneys enhance symmetrically. Small focus of cortical scarring are present in both kidneys. A 12 mm cyst is seen in the right lower pole. Additional scattered subcentimeter cortical hypodensities also likely represent cysts but are too small for definitive characterization. Abdominal vasculature: The abdominal aorta is normal in course and caliber noting moderate to advanced atherosclerotic calcification. Bowel: There is moderate colonic diverticulosis without CT evidence of acute diverticulitis no bowel obstruction is seen. The appendix is not identified and reported surgically absent. Peritoneum: There is no intraperitoneal free air or abdominal ascites. Lymphadenopathy: None. Pelvic viscera: The bladder, uterus, and adnexa are normal as visualized. There is a small volume of free fluid in the pelvis. Skeletal structures: The skeletal structures are osteopenic. There is moderate lumbosacral spondylosis as well as mild scoliosis. Grade 1 anterolisthesis is noted at L4-L5. No lytic or blastic lesions are seen. IMPRESSION: 1. There is a small volume of free fluid in the pelvis. This is a nonspecific finding and may be on a reactive basis. 2. Moderate colonic diverticulosis without CT evidence of acute diverticulitis. 3. Foci of tree-in-bud nodularity are present both lung bases and suggest infectious/inflammatory pneumonitis. See report of chest CT performed concurrently for detailed intrathoracic findings. 4. Additional findings as above. EKG Sinus rhythm Premature atrial complexes Possible Left atrial enlargement Septal infarct , age undetermined Abnormal ECG When compared with ECG of 02-NOV-2009 13:17, Septal infarct is now Present Premature atrial complexes are now Present Confirmed by KALYAN BORREGO ([id number]) on 07/31/2017 11:06:40 PM Impression Assessment and Plan Pt is an 82M with a PMHx of JRA, Mycobacterium Avium infection, Takotsubo's Cardiomyopathy, Melanoma who presents to the ER with a one month history of nausea without vomiting which has acutely worsened into chills and hemoptysis. Nausea / Lethargy / Fatigue May all be attributable to hyponatremia and dehydration but I suspect there is an underlying pathological cause . The M. Avium (Dx'ed in 2002) would be a source. Pt does not appear septic. There is also a concern of an underlying malignancy somewhere - the spiculated lesion in the lung is concerning. Consulting Pulmonary regarding the chronic Mycobacterium Avium & lung lesion. - Poor candidate for bronch since patient seized and almost on the table. According to uptodate GRANT Tx would be Azithromycin, Rifampin and Ethambutal. SIADH is also on the differential but low urine Na+ would suggest against this. Will gently rehydrate with NSS @30mls/hr. (pt got 2L NSS boluses in the ER). Follow up TSH, Vit B12, Folate & Lyme results. Will get Sputum culture and gram stain. No neurological deficits but if patient declines consider Head CT. h/o Takustabo's Cardiomyopathy will get echocardiogram. c/w Metoprolol Succinate 12.5mg BID. c/w ASA q72hrs. Will get BNP. Consider cards consult. HLD c.w Zocor 10mg PO QPM. Home Meds Will hold home Prednisone Rx'ed for fatigue, recently started. Continue Mometasone, will hold Albuterol per Dr. Amin's recommendation. c.w Raloxifene 60mg PO Daily. Hold celebrex in case contributing to hyponatremia. Diet: heart healthy Dispo - Admit Tele. DVT Proph: HepSQ 2500IU BID. FULL CODE Attending addendum: I have physically seen this patient, have supervised the medical residents activities, and agree with the H&P unless as otherwise noted. Assessment and Plan: Pneumonia/history of GRANT-- Poor bronc candidate due to history of respiratory failure after previous bronc. Would favor empiric treatment with triple antibiotic regimen as noted: Azithromycin, rifampin and ethambutol. Consult pulmonology. Xopenex/Atrovent high flow nebulizers. Follow sputum culture and Gram stain. Fatigue--likely multifactorial Metabolic workup as above. Order Lyme testing Did not notice improvement on prednisone, so not likely adrenal insufficiency. Likely secondary primarily to ongoing respiratory process, but need to assess cardiac status. Takutsubo's cardiomyopathy/hypertension-- Order 2D echocardiogram with Dopplers. Continue metoprolol succinate 12.5 mg p.o. twice daily with hold parameters. Follow on telemetry for pulmonary and cardiac issues. Advanced Directives Existing Advance Directive: No Existing Living Will: No Existing Power of Trim Setter: No Resuscitation Status VTE Prophylaxis Will order VTE Prophylaxis: Yes Resident Involvement: Resident Care Provided Care Provided: Adult Hospital Medicine
[2017-08-01 01:29] LABS: CALCIUM 7.6 mg/dl (8.5-10.1); CARBON DIOXIDE 23 mmol/L (21-32); CREATININE 0.79 mg/dl (0.60-1.20); GLUCOSE 109 mg/dl (70-99); POTASSIUM 3.5 mmol/L (3.5-5.1); SODIUM 135 mmol/L (136-145); TRANSFERRIN 246 mg/dl (200-360)
[2017-08-01 01:58] LABS: BLOOD UREA NITROGEN 10 mg/dl (7-18)
[2017-08-01] MEDS ORDERED: SODIUM CHLORIDE 0.9% 1000ML 1,000 ML IV SCH (02:00)
[2017-08-01] MEDS ORDERED: NON-FORMULARY MEDICATION (Albuterol Sulfate (Proair Respiclick) 2 PUFF) PO SCH (04:00)
--- NOTE | 2017-08-01 07:46 | Family Medicine Progress Note ---
Progress Note Date of Service Aug 01, 2017. Subjective Pt evaluation today including: conversation w/ patient Found patient sitting up in the hospital bed, conversing easily and pleasantly. Says she's had her ongoing nausea for at least two months. This morning continues to have a poor appetite. Does not volunteer any particular pains, but says that her low chest (pointing to her subcostal area) is sore. Denies any SOB or diarrhea. No particular acute patient concerns this morning. Constitutional: No fever, No chills Respiratory: + cough Cardiovascular: + chest pain (see HPI), No edema Abdomen: + nausea, No pain, No vomiting, No diarrhea Medications Current Inpatient Medications Medications (Trade) Dose Ordered Sig/Vishal Route Start Time Stop Time Status Last Admin Dose Admin Ioversol (Optiray 320) 111 ml UD PRN IV 07/31/17 18:00 08/04/17 17:59 Sodium Chloride 1,000 ml @ 30 mls/hr Q24H IV 08/01/17 02:00 08/02/17 01:59 08/01/17 01:54 30 MLS/HR Acetaminophen (Tylenol Tab) 650 mg Q4H PRN PO 08/01/17 00:30 08/31/17 00:29 08/01/17 01:55 650 MG Al Hydrox/Mg Hydrox/Simethicone (Maalox Max Susp) 15 ml Q4H PRN PO 08/01/17 00:30 08/31/17 00:29 Magnesium Hydroxide (Milk Of Magnesia Susp) 30 ml Q12H PRN PO 08/01/17 00:30 08/31/17 00:29 Ondansetron HCl (Zofran Inj) 4 mg Q6H PRN IV 08/01/17 00:30 08/31/17 00:29 Polyethylene (Miralax Powder Packet) 17 gm DAILY PRN PO 08/01/17 00:30 08/31/17 00:29 Aspirin (Ecotrin Tab) 81 mg Q72H PO 08/01/17 09:00 08/31/17 08:59 Lansoprazole (Prevacid Solutab) 15 mg DAILY PRN PO 08/01/17 09:00 08/31/17 08:59 Lidocaine (Lidoderm Patch 5%) 1 patch DAILY PRN TD 08/01/17 00:30 08/31/17 00:29 Metoprolol Succinate (Toprol Xl Tab) 12.5 mg BID PO 08/01/17 09:00 08/31/17 08:59 Ondansetron HCl (Zofran Tab) 4 mg Q6 PRN PO 08/01/17 00:30 08/31/17 00:29 Raloxifene HCl (Evista Tab) 60 mg DAILY PO 08/01/17 09:00 08/31/17 08:59 Simvastatin (Zocor Tab) 10 mg QPM PO 08/01/17 21:00 08/31/17 20:59 Miscellaneous Information (Order Awaiting Action) 1 ea QS N/A 08/01/17 08:00 08/31/17 07:59 Miscellaneous (Remove Lidoderm Patch) 1 ea DAILY@2100 PRN N/A 08/01/17 01:30 08/31/17 01:29 Heparin Sodium (Porcine) 2500 unit/Syringe 0.25 ml @ 0 mls/sec Q12 SC 08/01/17 09:00 08/31/17 08:59 Objective Vital Signs Date Time Temp Pulse Resp B/P (MAP) Pulse Ox O2 Delivery O2 Flow Rate FiO2 08/01/17 07:34 36.3 89 16 152/87 (108) 97 Room Air 08/01/17 04:06 36.6 86 16 152/92 (112) 96 Room Air 08/01/17 04:00 Room Air 08/01/17 01:41 36.4 92 20 166/84 97 Room Air 08/01/17 01:13 93 16 180/85 93 Room Air 08/01/17 00:07 86 16 179/78 94 Room Air 07/31/17 22:49 99 07/31/17 22:37 91 23 183/108 97 Room Air 07/31/17 21:04 86 23 131/88 95 Room Air 07/31/17 19:24 83 22 153/84 98 Room Air 07/31/17 18:31 77 07/31/17 17:28 36.5 83 18 147/75 96 Room Air Physical Exam Notes: General Appearance: Awake, alert & oriented, comfortable and speaking in full sentences, quite cachetic, NAD. CV: +S1S2 RRR, no murmur. No peripheral edema. Pulm: Clear to auscultation throughout. Abdomen: +BS, soft, non-tender, non-distended. Extremities: No pedal edema or calf tenderness. Moving all extremities naturally and easily. Neuro: No gross neuro deficits. Laboratory Results 07/31/17 18:07 Red Blood Count 4.09, Mean Corpuscular Volume 90.0, Mean Corpuscular Hemoglobin 31.3, Mean Corpuscular Hemoglobin Concent 34.8, Mean Platelet Volume 9.5, Neutrophils (%) (Auto) 82.3, Lymphocytes (%) (Auto) 14.2, Monocytes (%) (Auto) 3.2, Eosinophils (%) (Auto) 0.0, Basophils (%) (Auto) 0.0, Neutrophils # (Auto) 5.93, Lymphocytes # (Auto) 1.02, Monocytes # (Auto) 0.23, Eosinophils # (Auto) 0.00, Basophils # (Auto) 0.00 08/01/17 00:50 Test 07/31/17 18:07 07/31/17 18:08 07/31/17 18:11 07/31/17 18:47 White Blood Count 7.20 K/uL (4.8-10.8) Red Blood Count 4.09 M/uL (4.2-5.4) Hemoglobin 12.8 g/dL (12.0-16.0) Hematocrit 36.8 % (37-47) Mean Corpuscular Volume 90.0 fL (80-100) Mean Corpuscular Hemoglobin 31.3 pg (25-34) Mean Corpuscular Hemoglobin Concent 34.8 g/dl (32-36) Platelet Count 296 K/uL (130-400) Mean Platelet Volume 9.5 fL (7.4-10.4) Neutrophils (%) (Auto) 82.3 % Lymphocytes (%) (Auto) 14.2 % Monocytes (%) (Auto) 3.2 % Eosinophils (%) (Auto) 0.0 % Basophils (%) (Auto) 0.0 % Neutrophils # (Auto) 5.93 K/uL (1.4-6.5) Lymphocytes # (Auto) 1.02 K/uL (1.2-3.4) Monocytes # (Auto) 0.23 K/uL (0.11-0.59) Eosinophils # (Auto) 0.00 K/uL (0-0.5) Basophils # (Auto) 0.00 K/uL (0-0.2) RDW Standard Deviation 46.3 fL (36.4-46.3) RDW Coefficient of Variation 14.0 % (11.5-14.5) Immature Granulocyte % (Auto) 0.3 % Immature Granulocyte # (Auto) 0.02 K/uL (0.00-0.02) Lactic Acid Level 1.1 mmol/L (0.4-2.0) Phosphorus Level 2.9 mg/dl (2.5-4.9) Total Bilirubin 0.3 mg/dl (0.2-1) Direct Bilirubin < 0.1 mg/dl (0-0.2) Aspartate Amino Transf (AST/SGOT) 24 U/L (15-37) Alanine Aminotransferase (ALT/SGPT) 24 U/L (12-78) Alkaline Phosphatase 72 U/L (45-117) Total Protein 7.7 gm/dl (6.4-8.2) Albumin 3.3 gm/dl (3.4-5.0) Lipase 250 U/L (73-393) Osmolality 270 mOsm/kg (280-300) Urine Color YELLOW Urine Appearance CLEAR (CLEAR) Urine pH 7.0 (4.5-7.5) Urine Specific [place] 1.007 (1.000-1.030) Urine Protein NEG (NEG) Urine Glucose (UA) NEG (NEG) Urine Ketones NEG (NEG) Urine Occult Blood NEG (NEG) Urine Nitrite NEG (NEG) Urine Bilirubin NEG (NEG) Urine Urobilinogen NEG (NEG) Urine Leukocyte Esterase NEG (NEG) Urine Osmolality 197 mOms/kg (500-800) Test 07/31/17 20:01 08/01/17 00:50 08/01/17 01:00 08/01/17 06:02 Influenza Type A (RT-PCR) Neg for Influ A (NEG) Influenza Type B (RT-PCR) Neg for Influ B (NEG) Anion Gap 8.0 mmol/L (3-11) Est Creatinine Clear Calc Drug Dose 32.6 ml/min Estimated GFR () 81.4 Estimated GFR (Non- 70.2 BUN/Creatinine Ratio 12.5 (10-20) Calcium Level 7.6 mg/dl (8.5-10.1) Magnesium Level 2.4 mg/dl (1.8-2.4) Transferrin 246 mg/dl (200-360) Ferritin 73.4 ng/ml (8.0-388.0) Pro-B-Type Natriuretic Peptide 2405 pg/ml (0-1800) Vitamin B12 Level 835 pg/mL (211-911) Folate > 24.00 ng/mL (>5.38) Procalcitonin < 0.05 ng/ml (0-0.5) Thyroid Stimulating Hormone (TSH) 1.700 uIu/ml (0.300-4.500) Free Thyroxine 1.21 ng/dl (0.80-1.60) Lyme Disease IgG Antibody NEG (NEG) Lyme Disease IgM Antibody NEG (NEG) Transferrin % Saturation % (15-50) Prothrombin Time 10.8 SECONDS (9.0-12.0) Prothromb Time International Ratio 1.0 (0.9-1.1) Assessment and Plan 82 yo female admitted late on [id number] for nausea and fatigue. PMH: JRA, Mycobacterium avium infection and pulmonary nodule, Takotsubo's Cardiomyopathy, melanoma of left lower extremity, asthma Nausea and fatigue: Noted over past > 2 months, worse in recent days. TSH normal. Lyme negative. Suspect multifactorial, see below discussion. - Was previously started on prednisone, held here. Hyponatremia: On admit Na 125, improved with IVF to 135. Probably a source of fatigue. Exact etiology unclear, possible dehydration. Given IVF boluses and rate at present. - Held celebrex in case it is contributing. Hemoptysis / Bronchiectasis: Patient says last hemoptysis a week ago. Sees Dr. Mckay ([place]) as PCM, reported recent moxifloxacin and partial course of bactrim. History of Mycobacterium avium infection. Denies present SOB. Afebrile, no blood leukocytosis, but CT chest suggestive of a chronic infectious issue. Pulmonology consulted, discussed case with Dr. Toney (see his full note). Noted bronchiectasis on the CT scan can explain her cough and episode of mild hemoptysis. Hemoptysis not due to prior GRANT infection. - Pulm ordered pulmonary toilet and Combivent inh q6h. Deferred future possible inhaled corticosteroid use to PCM. Hypomagnesemia: On admit Mg 1.6. Replaced, monitoring. Takotsubo's Cardiomyopathy: History of same. BNP 2405. On metoprolol and ASA. 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 - Ordered echocardiogram Asthma: History of same. On mometasone. Holding albuterol. HLD: On zocor. CT chest findings: Noted spiculated LLL nodule. Radiology recommended three- month f/u CT chest. Unclear if this is chronic. Code status: Full code Diet: AHA diet DVT prophy: Heparin BID. PT/OT: Ordered. Disbo: Admit to telemetry. Resident Physician Supervision Note: I interviewed and examined the patient. Discussed with Dr. Horan and agree with findings and plan as documented in the note. Any exceptions or clarifications are listed here: None Documented By: Mynor Lemon d/w dr toney pt notes not feeling right since a virus in may vitals noted nad frail and thin breathing unlabored bronchiectasis / poor PO intake likely in vicious cycle secondary to frailty/ poor appetite initially from viral GE now resulting in malnutrition and hyopnatremic dehydration --> as above. Resident Tracking Resident Involvement: Resident Care Provided Care Provided: Adult Hospital Medicine (inpatient)
[2017-08-01] MEDS: RALOXIFENE 60 MG TAB PO SCH (08:01)
[2017-08-01] MEDS: METOPROLOL SUCC 25MG EXT REL TAB PO SCH ×2 (08:01→20:42)
[2017-08-01] MEDS: LANSOPRAZOLE SOLUTAB 15 MG PO PRN (08:01)
[2017-08-01] MEDS: ASPIRIN 81 MG ECTAB PO SCH (08:39)
[2017-08-01] MEDS ORDERED: HEPARIN SOD 5000 UNIT/0.5 ML CARP SQ SCH (09:00)
[2017-08-01 09:32] LABS: CALCIUM 8.2 mg/dl (8.5-10.1); CREATININE 0.85 mg/dl (0.60-1.20); POTASSIUM 3.8 mmol/L (3.5-5.1)
[2017-08-01] MEDS: HEPARIN SC SCH ×2 (10:50→21:26)
[2017-08-01] MEDS ORDERED: BOOST VANILLA PO SCH (12:00)
[2017-08-01] MEDS ORDERED: NURSING DECISION MEDICATION ORDER SCH (13:30)
[2017-08-01] MEDS: BOOST VANILLA PO SCH (17:00)
--- NOTE | 2017-08-01 17:05 | Pulmonary Consultation ---
History General Date of Service: Aug 01, 2017. Stated Complaint: Dehydration; Hyponatremia HPI Dear Dr. Lemon: Thank you for your kind referral of Mrs. Austin to pulmonary service. 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 Mckay as an outpatient who has been treating her asthma with Asmanex, the patient had a history of GRANT diagnosed in 2002 and was treated with triple antibiotics back then for 2 years according to her. The patient has been doing well from a respiratory standpoint. The patient has been losing weight and developed nausea in addition to cachexia. In the past week or so patient did have an episode of cough where she had blood-tinged sputum. The patient did not have any difficulty breathing, no chest pain was reported no abdominal pain no vomiting but she did have constant nausea. No change in bowel movements or urine habits. The patient has difficulty manipulating it due to her deformity in the digits. The patient did have an episode of cough what I was interviewing her. She has not received gold salts. She did not receive any other medications in the past. Never been on injections also for rheumatoid arthritis. The patient was admitted to the hospital, and underwent a CAT scan of the chest due to the history of hemoptysis a week ago, the CAT scan reviewed by myself with Dr. Horan, and found to have bronchiectasis with saccular bronchiectasis mainly in the lingula and the right middle lobe. The patient changes did not show any nodularity. The patient did have evidence of mucoid impaction, dilated esophagus and fibrotic changes in the sub-pleuritic area. The patient does not appear to be in respiratory distress when I spoke to her. She has been diagnosed with Pseudomonas in her sputum in the past but has not been treated for any pneumonia. She has been intubated back in 2002 after a bronchoscopy due to a complicated procedure. She has not had any intubation ever since. No recurrence of her symptoms back then. The GRANT diagnosis was done incidentally as the patient was going for a workup for another procedure, the patient had a chest x-ray followed by CAT scan 2002 that led to a bronchoscopy. Historian: patient, other (Medical records) Onset: just prior to arrival Complaint Status: improved Review of Systems Constitutional: denies: no symptoms, as stated in HPI, chills, diaphoresis, fever, malaise, weakness, weight gain, weight loss, other Eyes: denies: no symptoms, as stated in HPI, eye pain, tearing, itching, redness, discharge, double vision, visual changes, blurred vision, photophobia, other ENT: denies: no symptoms, as stated in HPI, ear pain, ear discharge, loss of hearing, tinnitus, nasal pain, nasal congestion, rhinorrhea, epistaxis, sore throat, stridor, throat swelling, mouth pain, mouth swelling, dental pain, gum swelling, other Cardiovascular: denies: no symptoms, as stated in HPI, chest pain, chest pressure, chest tightness, diaphoresis, edema, intermittent claudication, orthopnea, palpitations, syncope, other Respiratory: reports: cough Gastrointestinal: reports: nausea Genitourinary - Female: reports: no symptoms Musculoskeletal: reports: other (Left shoulder pain and cachexia) Integumentary: denies: no symptoms, as stated in HPI, rash, redness, warmth, itching, dryness, lesions, lumps, change in color, change in hair/nails, other Neurologic: denies: no symptoms, as stated in HPI, headache, dizziness, general weakness, focal weakness, numbness, tingling, paresthesia, pre-existing deficit, tremors, tics, vertigo, seizure, lethargy, memory loss, other Endocrine: denies: no symptoms, as stated in HPI, cold intolerance, heat intolerance, hair changes, goiter, polydipsia, polyuria, skin changes, other Past Medical History Past Medical History: As above in the first section. Family History No pertinent family history Social History Hx Tobacco Use In Past Year?: No Smoking Status: Never Smoker Marital status: Immunizations History of Influenza Vaccine: Yes History of Tetanus Vaccine?: Yes History of Pneumococcal: Yes History of Hepatitis B Vaccine: No History of MDRO History of MDRO: No Allergies Coded Allergies: Meperidine (Verified Allergy, Mild, RESP ARREST, 11/02/09) Midazolam (Verified Allergy, Mild, RESP ARREST, 11/02/09) Amoxicillin (Verified Allergy, Unknown, FROM AUGMENTIN, 11/02/09) Clavulanic Acid (Verified Allergy, Unknown, 06/03/09) Replaces AUGMENTIN 250 Codeine (Verified Allergy, Unknown, 06/03/09) Penicillins (Verified Allergy, Unknown, 06/03/09) Replaces AUGMENTIN 250 Ibuprofen (Verified Adverse Reaction, Mild, UPSETS HER STOMACH, 11/02/09) Current Medications Reported Home Medications Medications Dose Route/Sig Max Daily Dose Days Date Category Zofran (Ondansetron HCl) 4 Mg Tab 4 Mg PO Q6 PRN 07/31/17 Reported Citracal Plus (Multiple Minerals W/ Vitamins) 1 Tab Tab 2 Tabs PO DAILY 07/31/17 Reported Proair Respiclick (Albuterol Sulfate) 108 Mcg/Act Aer 2 Puff PO Q4 07/31/17 Reported Prevacid Solutab (Lansoprazole) 15 Mg [place] 15 Mg PO PRN 07/31/17 Reported Prednisone 5 Mg Tab 5 Mg PO DAILY 07/31/17 Reported Mvi With Minerals (Multivitamins/Minerals) Tab 1 Tab PO DAILY 07/31/17 Reported Evista (Raloxifene Hcl) 60 Mg Tab 60 Mg PO DAILY 07/31/17 Reported Celebrex (Celecoxib) 100 Mg Cap 100 Mg PO DAILY PRN 07/31/17 Reported Asmanex 30 Metered Doses (Mometasone Furoate (Inhalation) 110 Mcg/Inh Aer 1 Puff INH QP 07/31/17 Reported Lidocaine 5 % Pad 1 Patch TD DAILY PRN 07/31/17 Reported Ecotrin Or Generic (Aspirin) 81 Mg Tab 81 Mg PO 2XWK 07/31/17 Reported Zocor (Simvastatin) 10 Mg Tab 10 Mg PO QPM 11/02/09 Reported Tylenol Arthritis Ext Rel (Acetaminophen) 650 Mg Cplt 650 Mg PO Q8HR PRN 11/02/09 Reported Toprol-Xl (Metoprolol Succinate) 25 Mg Tabcr 12.5 Mg PO BID 11/02/09 Reported Physical Physical Exam Vital Signs: Date Time Temp Pulse Resp B/P (MAP) Pulse Ox O2 Delivery O2 Flow Rate FiO2 08/01/17 16:00 98 Room Air 08/01/17 15:22 36.8 73 16 167/78 (107) 98 Room Air 08/01/17 15:16 66 94 08/01/17 12:00 95 Room Air 08/01/17 11:22 36.6 81 16 100/74 (83) 95 Room Air 08/01/17 08:00 97 Room Air 08/01/17 07:34 36.3 89 16 152/87 (108) 97 Room Air 08/01/17 04:06 36.6 86 16 152/92 (112) 96 Room Air 08/01/17 04:00 Room Air 08/01/17 01:41 36.4 92 20 166/84 97 Room Air 08/01/17 01:13 93 16 180/85 93 Room Air 08/01/17 00:07 86 16 179/78 94 Room Air 07/31/17 22:49 99 07/31/17 22:37 91 23 183/108 97 Room Air 07/31/17 21:04 86 23 131/88 95 Room Air 07/31/17 19:24 83 22 153/84 98 Room Air 07/31/17 18:31 77 07/31/17 17:28 36.5 83 18 147/75 96 Room Air General Appearance: NO APPARENT DISTRESS Eyes: PERRLA, EOMI ENT: NORMAL THROAT EXAM, other ([place] teeth and micrognathia) Neck: NO TENDERNESS Respiratory: other (Distant rhonchi) Cardiovasular: REGULAR RATE/RHYTHM, NORMAL S1S2, NO M/G/R Abdomen: NO REBOUND, NO MASSES Lower Extremities: NO EDEMA, other (Significant ulnar deviation and deformity in the upper and lower digits.) Neuro: ALERT, ORIENTED x 3, NORMAL MOTOR EXAM Psychiatric: NORMAL AFFECT Diagnostics Labs Results Past 24 Hours Test 07/31/17 18:07 07/31/17 18:08 07/31/17 18:11 07/31/17 18:47 Range/Units White Blood Count 7.20 4.8-10.8 K/uL Red Blood Count 4.09 4.2-5.4 M/uL Hemoglobin 12.8 12.0-16.0 g/dL Hematocrit 36.8 37-47 % Mean Corpuscular Volume 90.0 80-100 fL Mean Corpuscular Hemoglobin 31.3 25-34 pg Mean Corpuscular Hemoglobin Concent 34.8 32-36 g/dl Platelet Count 296 130-400 K/uL Mean Platelet Volume 9.5 7.4-10.4 fL Neutrophils (%) (Auto) 82.3 % Lymphocytes (%) (Auto) 14.2 % Monocytes (%) (Auto) 3.2 % Eosinophils (%) (Auto) 0.0 % Basophils (%) (Auto) 0.0 % Neutrophils # (Auto) 5.93 1.4-6.5 K/uL Lymphocytes # (Auto) 1.02 1.2-3.4 K/uL Monocytes # (Auto) 0.23 0.11-0.59 K/uL Eosinophils # (Auto) 0.00 0-0.5 K/uL Basophils # (Auto) 0.00 0-0.2 K/uL RDW Standard Deviation 46.3 36.4-46.3 fL RDW Coefficient of Variation 14.0 11.5-14.5 % Immature Granulocyte % (Auto) 0.3 % Immature Granulocyte # (Auto) 0.02 0.00-0.02 K/uL Lactic Acid Level 1.1 0.4-2.0 mmol/L Sodium Level 125 136-145 mmol/L Potassium Level 4.5 3.5-5.1 mmol/L Chloride Level 92 98-107 mmol/L Carbon Dioxide Level 27 21-32 mmol/L Anion Gap 7.0 3-11 mmol/L Blood Urea Nitrogen 15 7-18 mg/dl Creatinine 0.99 0.60-1.20 mg/dl Est Creatinine Clear Calc Drug Dose 26.0 ml/min Estimated GFR () 61.9 Estimated GFR (Non- 53.4 BUN/Creatinine Ratio 14.8 10-20 Random Glucose 123 70-99 mg/dl Calcium Level 8.8 8.5-10.1 mg/dl Phosphorus Level 2.9 2.5-4.9 mg/dl Magnesium Level 1.6 1.8-2.4 mg/dl Total Bilirubin 0.3 0.2-1 mg/dl Direct Bilirubin < 0.1 0-0.2 mg/dl Aspartate Amino Transf (AST/SGOT) 24 15-37 U/L Alanine Aminotransferase (ALT/SGPT) 24 12-78 U/L Alkaline Phosphatase 72 45-117 U/L Total Protein 7.7 6.4-8.2 gm/dl Albumin 3.3 3.4-5.0 gm/dl Lipase 250 73-393 U/L Osmolality 270 280-300 mOsm/kg Urine Color YELLOW Urine Appearance CLEAR CLEAR Urine pH 7.0 4.5-7.5 Urine Specific [place] 1.007 1.000-1.030 Urine Protein NEG NEG Urine Glucose (UA) NEG NEG Urine Ketones NEG NEG Urine Occult Blood NEG NEG Urine Nitrite NEG NEG Urine Bilirubin NEG NEG Urine Urobilinogen NEG NEG Urine Leukocyte Esterase NEG NEG Urine Osmolality 197 500-800 mOms/kg Test 07/31/17 20:01 08/01/17 00:50 08/01/17 01:00 08/01/17 06:02 Range/Units Influenza Type A (RT-PCR) Neg for Influ A NEG Influenza Type B (RT-PCR) Neg for Influ B NEG Sodium Level 135 136-145 mmol/L Potassium Level 3.5 3.5-5.1 mmol/L Chloride Level 104 98-107 mmol/L Carbon Dioxide Level 23 21-32 mmol/L Anion Gap 8.0 3-11 mmol/L Blood Urea Nitrogen 10 7-18 mg/dl Creatinine 0.79 0.60-1.20 mg/dl Est Creatinine Clear Calc Drug Dose 32.6 ml/min Estimated GFR () 81.4 Estimated GFR (Non- 70.2 BUN/Creatinine Ratio 12.5 10-20 Random Glucose 109 70-99 mg/dl Calcium Level 7.6 8.5-10.1 mg/dl Magnesium Level 2.4 1.8-2.4 mg/dl Transferrin 246 200-360 mg/dl Transferrin % Saturation 15-50 % Ferritin 73.4 8.0-388.0 ng/ml Pro-B-Type Natriuretic Peptide 2405 0-1800 pg/ml Vitamin B12 Level 835 211-911 pg/mL Folate > 24.00 >5.38 ng/mL Procalcitonin < 0.05 0-0.5 ng/ml Thyroid Stimulating Hormone (TSH) 1.700 0.300-4.500 uIu/ml Free Thyroxine 1.21 0.80-1.60 ng/dl Lyme Disease IgG Antibody NEG NEG Lyme Disease IgM Antibody NEG NEG Prothrombin Time 10.8 9.0-12.0 SECONDS Prothromb Time International Ratio 1.0 0.9-1.1 Test 08/01/17 06:06 08/01/17 07:38 08/01/17 11:33 Range/Units Sodium Level 133 136-145 mmol/L Potassium Level 3.8 3.5-5.1 mmol/L Chloride Level 99 98-107 mmol/L Carbon Dioxide Level 27 21-32 mmol/L Anion Gap 7.0 3-11 mmol/L Blood Urea Nitrogen 10 7-18 mg/dl Creatinine 0.85 0.60-1.20 mg/dl Est Creatinine Clear Calc Drug Dose 28.9 ml/min Estimated GFR () 74.5 Estimated GFR (Non- 64.3 BUN/Creatinine Ratio 11.2 10-20 Random Glucose 87 70-99 mg/dl Calcium Level 8.2 8.5-10.1 mg/dl Bedside Glucose 104 103 70-90 mg/dl Diagnostic Radiology CAT scan of the chest reviewed personally with Dr. Horan results as above. Impression Assessment and Plan 1. 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 I do not have records from 15 years ago at [facility]. 2. Hemoptysis, one episode a week ago, resolved, likely related to #1. 3. Severe cachexia. 4. Rheumatoid arthritis with significant deformity in the digits. Plan: 1. I will start the patient on pulmonary toilet using incentive spirometry, flutter valve and vibrating vest. 2. I will start the patient also on Combivent inhaler every 6 hours on a regular basis. 3. The patient is using Asmanex which she continue with it. The patient has been having oral candidiasis in regard to the use of inhaled corticosteroids. I will defer further treatment or stopping the treatment to Dr. Mckay. 4. If the patient does not tolerate the vibrating first, it can be discontinued. #5 in case of recurrence of hemoptysis, bronchoscopy can be done, the patient does not seem to be enthusiastic about another bronchoscopy given the event occurred with her first bronchoscopy 15 years ago. Case discussed in details with the staff, with Dr. Lemon and Dr. Horan, Thank you very kind referral, will follow.
[2017-08-01] MEDS: IPRATROPIUM BROMIDE/ALBUTEROL respimat INH INH SCH ×2 (18:22→20:37)
[2017-08-01] MEDS: SODIUM CHLORIDE 0.9% 1000ML 1,000 ML IV SCH (18:25)
--- NOTE | 2017-08-01 19:16 | ECHOCARDIOGRAM REPORT ---
*NOTICE TO RECEIVING DEMOCRAT AGENCY This information is strictly Confidential and protected under [place] law. [place] law prohibits you from making any further disclosure of this information unless further disclosure is expressly permitted by the written consent of the person to whom it pertains or is authorized by law. A general authorization for the release of medical or other information is not sufficient for this purpose. Hospital accepts no responsibility if the information is made available to any other person, INCLUDING THE PATIENT. Interpretation Summary * Name: DENIS MONTEJO Study Date: 08/01/2017 08:49 AM BP: 152/92 mmHg * Patient Location: [facility]\S\[id number]\S\1 HR: 86 * : 1935 (M/d/yyyy) Gender: Female Height: 64 in * Age: 82 yrs Ethnicity: [place] Weight: 81 lb * Ordering Physician: Daniel Leone * Referring Physician: Kuldip Mckay * Performed By: Yoselin Posey [facility] * * Reason For Study: Dilated Cardiomyopathy * BSA: 1.3 m2 * -- Conclusions -- * 1. Normal left ventricular size and systolic function. EF 55-60%. No regional wall motion abnormalities. No left ventricular hypertrophy. Type 1 diastolic dysfunction. * 2. Trace aortic regurgitation. * 3. There is moderate tricuspid regurgitation. * 4. Small pericardial effusion without echocardiographic evidence of tamponade physiology. * 5. Normal estimated right ventricular systolic pressure; 32mmHg. * 6. No significant change from prior study on 11/03/2009. Procedure Details * A complete two-dimensional transthoracic echocardiogram was performed (2D, M-mode, Doppler and color flow Doppler). Left Ventricle * Normal left ventricular size and systolic function. EF 55-60%. No regional wall motion abnormalities. No left ventricular hypertrophy. Type 1 diastolic dysfunction. Right Ventricle * The right ventricle is normal in size and function. * The right ventricular systolic function is normal as assessed by tricuspid annular plane systolic excursion (TAPSE) (normal >1.5 cm). Atria * The left atrial size is normal. * Right atrial size is normal. * There is no evidence of atrial septal defect, but resolution does not allow assessment for a patent foramen ovale. Mitral Valve * The mitral valve is grossly normal. * There is no mitral valve stenosis. * There is trace mitral regurgitation. Tricuspid Valve * The tricuspid valve is not well visualized, but is grossly normal. * There is no tricuspid stenosis. * There is moderate tricuspid regurgitation. Aortic Valve * The aortic valve is trileaflet. * No hemodynamically significant valvular aortic stenosis. * Trace aortic regurgitation. Pulmonic Valve * The pulmonary valve is inadequately visualized, but the Doppler data is adequate for interpretation. * There is no pulmonic valvular stenosis. * There is no significant pulmonary regurgitation. Great Vessels * The aortic root is normal size. * Ascending aorta of normal dimension Pericardium/Pleural * Small pericardial effusion without echocardiographic evidence of tamponade physiology. Great Vessels * Normal inferior vena cava size and collapsability with sniff indicates a normal right atrial pressure of 3 mmHg MMode 2D Measurements and Calculations IVSd 0.78 cm IVSs 1.2 cm LVIDd 3.9 cm LVIDs 2.5 cm LVPWd 1.0 cm LVPWs 1.4 cm IVS/LVPW 0.77 FS 35.8 % EDV(Teich) 65.9 ml ESV(Teich) 22.4 ml EF(Teich) 66.0 % EDV(cubed) 59.3 ml ESV(cubed) 15.7 ml EF(cubed) 73.6 % % IVS thick 56.4 % % LVPW thick 41.6 % LV mass(C)d 104.3 grams LV mass(C)dI 78.3 grams/m\S\2 LV mass(C)s 101.2 grams LV mass(C)sI 76.0 grams/m\S\2 SV(Teich) 43.5 ml SI(Teich) 32.6 ml/m\S\2 SV(cubed) 43.6 ml SI(cubed) 32.7 ml/m\S\2 Ao root diam 3.3 cm Ao root area 8.5 cm\S\2 ACS 1.8 cm LA dimension 2.9 cm asc Aorta Diam 2.8 cm LA/Ao 0.89 LVAd ap4 19.5 cm\S\2 LVLd ap4 6.5 cm EDV(MOD-sp4) 48.9 ml EDV(sp4-el) 50.1 ml LVAs ap4 12.3 cm\S\2 LVLs ap4 5.9 cm ESV(MOD-sp4) 23.1 ml ESV(sp4-el) 22.0 ml EF(MOD-sp4) 52.7 % EF(sp4-el) 56.2 % LVAd ap2 21.1 cm\S\2 LVLd ap2 6.6 cm EDV(MOD-sp2) 54.5 ml EDV(sp2-el) 57.2 ml LVAs ap2 13.3 cm\S\2 LVLs ap2 5.9 cm ESV(MOD-sp2) 24.0 ml ESV(sp2-el) 25.5 ml EF(MOD-sp2) 55.9 % EF(sp2-el) 55.5 % LVLd %diff 2.1 % EDV(MOD-bp) 51.4 ml LVLs %diff -0.08 % ESV(MOD-bp) 23.2 ml EF(MOD-bp) 54.8 % SV(MOD-sp4) 25.8 ml SI(MOD-sp4) 19.3 ml/m\S\2 SV(MOD-sp2) 30.5 ml SI(MOD-sp2) 22.9 ml/m\S\2 SV(MOD-bp) 28.2 ml SI(MOD-bp) 21.1 ml/m\S\2 SV(sp4-el) 28.1 ml SI(sp4-el) 21.1 ml/m\S\2 SV(sp2-el) 31.7 ml SI(sp2-el) 23.8 ml/m\S\2 Doppler Measurements and Calculations MV E max edward 53.2 cm/sec MV A max edward 80.0 cm/sec MV E/A 0.67 MV P1/2t max edward 86.7 cm/sec MV P1/2t 45.4 msec MVA(P1/2t) 4.8 cm\S\2 MV dec slope 559.1 cm/sec\S\2 MV dec time 0.25 sec Ao V2 max 84.4 cm/sec Ao max PG 2.9 mmHg Ao max PG (full) 1.4 mmHg AI max edward 487.3 cm/sec AI max PG 95.0 mmHg AI dec slope 354.4 cm/sec\S\2 AI P1/2t 402.7 msec LV V1 max PG 1.5 mmHg LV V1 max 61.5 cm/sec PA V2 max 94.9 cm/sec PA max PG 3.6 mmHg TR max edward 268.0 cm/sec RVSP(TR) 31.9 mmHg RAP systole 3.0 mmHg
[2017-08-01] MEDS: MOMETASONE INH SCH (20:40)
[2017-08-01] MEDS: SIMVASTATIN 10 MG TAB PO SCH (20:42)
[2017-08-02] VITALS (7 sets, daily range): BP systolic 124–164; BP diastolic 71–89; PULSE 71–91; TEMP 36.4–36.8; O2SAT 94–100
[2017-08-02 07:16] LABS: CALCIUM 8.5 mg/dl (8.5-10.1); CREATININE 0.82 mg/dl (0.60-1.20); POTASSIUM 4.2 mmol/L (3.5-5.1)
[2017-08-02] MEDS: SODIUM CHLORIDE 0.9% 1000ML 1,000 ML IV SCH ×2 (07:55→22:23)
[2017-08-02] MEDS: IPRATROPIUM BROMIDE/ALBUTEROL respimat INH INH SCH ×4 (07:55→20:27)
[2017-08-02] MEDS: RALOXIFENE 60 MG TAB PO SCH (07:55)
[2017-08-02] MEDS: BOOST VANILLA PO SCH ×3 (07:55→16:50)
[2017-08-02] MEDS: METOPROLOL SUCC 25MG EXT REL TAB PO SCH ×2 (07:56→20:27)
[2017-08-02] MEDS: HEPARIN SC SCH ×2 (08:24→20:34)
--- NOTE | 2017-08-02 08:55 | Family Medicine Progress Note ---
Progress Note Date of Service Aug 02, 2017. Subjective Pt evaluation today including: conversation w/ patient Found patient resting comfortably. She denied any acute concerns, including any new CP, SOB, worsening cough, or abdominal pain. Constitutional: No fever, No chills Respiratory: + cough Cardiovascular: No chest pain, No edema Abdomen: + nausea, No pain, No vomiting Medications Current Inpatient Medications Medications (Trade) Dose Ordered Sig/Vishal Route Start Time Stop Time Status Last Admin Dose Admin Ioversol (Optiray 320) 111 ml UD PRN IV 07/31/17 18:00 08/04/17 17:59 Acetaminophen (Tylenol Tab) 650 mg Q4H PRN PO 08/01/17 00:30 08/31/17 00:29 08/01/17 01:55 650 MG Al Hydrox/Mg Hydrox/Simethicone (Maalox Max Susp) 15 ml Q4H PRN PO 08/01/17 00:30 08/31/17 00:29 Magnesium Hydroxide (Milk Of Magnesia Susp) 30 ml Q12H PRN PO 08/01/17 00:30 08/31/17 00:29 Ondansetron HCl (Zofran Inj) 4 mg Q6H PRN IV 08/01/17 00:30 08/31/17 00:29 Polyethylene (Miralax Powder Packet) 17 gm DAILY PRN PO 08/01/17 00:30 08/31/17 00:29 Aspirin (Ecotrin Tab) 81 mg Q72H PO 08/01/17 09:00 08/31/17 08:59 08/01/17 08:39 81 MG Lansoprazole (Prevacid Solutab) 15 mg DAILY PRN PO 08/01/17 09:00 08/31/17 08:59 08/01/17 08:01 15 MG Lidocaine (Lidoderm Patch 5%) 1 patch DAILY PRN TD 08/01/17 00:30 08/31/17 00:29 Metoprolol Succinate (Toprol Xl Tab) 12.5 mg BID PO 08/01/17 09:00 08/31/17 08:59 08/02/17 07:56 12.5 MG Ondansetron HCl (Zofran Tab) 4 mg Q6 PRN PO 08/01/17 00:30 08/31/17 00:29 08/01/17 08:02 4 MG Raloxifene HCl (Evista Tab) 60 mg DAILY PO 08/01/17 09:00 08/31/17 08:59 08/02/17 07:55 60 MG Simvastatin (Zocor Tab) 10 mg QPM PO 08/01/17 21:00 08/31/17 20:59 08/01/17 20:42 10 MG Miscellaneous (Remove Lidoderm Patch) 1 ea DAILY@2100 PRN N/A 08/01/17 01:30 08/31/17 01:29 Heparin Sodium (Porcine) 2500 unit/Syringe 0.25 ml @ 0 mls/sec Q12 SC 08/01/17 09:00 08/31/17 08:59 08/02/17 08:24 0.5 MLS/SEC Enteral Nutritional Formula (Boost) 1 can TIDM PO 08/01/17 17:00 08/31/17 16:59 08/02/17 07:55 1 CAN Albuterol/ Ipratropium (Combivent Respimat Inh) 1 puffs QID INH 08/01/17 17:00 08/31/17 16:59 08/02/17 07:55 1 PUFFS Non-Formulary Medication (Non-Formulary Patient'S Own Med) 1 ea QPM INH 08/01/17 21:00 08/31/17 20:59 08/01/17 20:40 1 EA Sodium Chloride 1,000 ml @ 70 mls/hr [id number] IV 08/01/17 17:45 08/31/17 17:44 08/02/17 07:55 70 MLS/HR Objective Vital Signs Date Time Temp Pulse Resp B/P (MAP) Pulse Ox O2 Delivery O2 Flow Rate FiO2 08/02/17 05:12 152/87 (108) 08/02/17 04:32 36.4 71 19 164/71 (102) 100 Room Air 08/02/17 04:00 Room Air 08/02/17 00:00 Room Air 08/01/17 23:41 36.6 70 18 143/74 (97) 97 Room Air 08/01/17 20:33 74 152/69 (96) 08/01/17 20:14 36.8 83 16 151/68 (95) 91 Room Air 08/01/17 20:00 98 Room Air 08/01/17 16:00 98 Room Air 08/01/17 15:22 36.8 73 16 167/78 (107) 98 Room Air 08/01/17 15:16 66 94 08/01/17 12:00 95 Room Air 08/01/17 11:22 36.6 81 16 100/74 (83) 95 Room Air Physical Exam Notes: General Appearance: Awake, alert & oriented, comfortable and speaking in full sentences, quite cachetic, NAD. CV: +S1S2 RRR, positive systolic murmur. No peripheral edema. Pulm: Clear to auscultation throughout. Abdomen: +BS, soft, non-tender, non-distended. Extremities: No pedal edema or calf tenderness. Moving all extremities naturally and easily. Significant generalized finger arthritic deformities. Neuro: No gross neuro deficits. Laboratory Results 08/02/17 06:19 Test 08/02/17 06:19 08/02/17 07:29 Anion Gap 5.0 mmol/L (3-11) Est Creatinine Clear Calc Drug Dose 30.1 ml/min Estimated GFR () 77.8 Estimated GFR (Non- 67.1 BUN/Creatinine Ratio 18.1 (10-20) Calcium Level 8.5 mg/dl (8.5-10.1) Bedside Glucose 85 mg/dl (70-90) Assessment and Plan 82 yo female admitted late on [id number] for nausea and fatigue. PMH: JRA, Mycobacterium avium infection and pulmonary nodule, Takotsubo's Cardiomyopathy, melanoma of left lower extremity, asthma Nausea and fatigue: Noted over past > 2 months, worse in recent days. TSH normal. Lyme negative. Suspect multifactorial, see below discussion. - Was previously started on prednisone, held here. Hyponatremia: On admit Na 125, improved with IVF to 135. Probably a source of fatigue. Exact etiology unclear, possible dehydration. Given IVF boluses and rate at present. - Held celebrex in case it is contributing. Hemoptysis / Bronchiectasis: Patient says last hemoptysis a week ago. Sees Dr. Mckay ([place]) as PCM, reported recent moxifloxacin and partial course of bactrim. History of Mycobacterium avium infection. Denies present SOB. Afebrile, no blood leukocytosis, but CT chest suggestive of a chronic infectious issue. Pulmonology consulted, discussed case with Dr. Toney (see his full note). Noted bronchiectasis on the CT scan can explain her cough and episode of mild hemoptysis. Hemoptysis not due to prior GRANT infection. On pulmonary toilet and Combivent inh q6h. Deferred future possible inhaled corticosteroid use to PCM. Hypomagnesemia: On admit Mg 1.6. Replaced, monitoring. Takotsubo's Cardiomyopathy: History of same. BNP 2405. On metoprolol and ASA. 05Apr echocardiogram noted EF 55-60%, moderate TR, but overall reassuring ( see full report). Sees Dr. Eckert as hris developer. Asthma: History of same. On mometasone. Holding albuterol. HLD: On zocor. CT chest findings: Noted spiculated LLL nodule. Radiology recommended three- month f/u CT chest. Unclear if this is chronic. Code status: Full code Diet: AHA diet DVT prophy: Heparin BID. PT/OT: Ordered. Disbo: Admit to telemetry. Referral made to [facility]. May be able to go there tomorrow if continues to improve. Resident Physician Supervision Note: I interviewed and examined the patient. Discussed with Dr. Horan and agree with findings and plan as documented in the note. Any exceptions or clarifications are listed here: None Documented By: Mynor Lemon feeling better eating ok vitals noted nad breathing unlabored bronchiectasis / poor PO intake likely in vicious cycle secondary to frailty/ poor appetite initially from viral GE now resulting in malnutrition and hyopnatremic dehydration --> doing well, anticipate rehab tomorrow otherwise as above Resident Tracking Resident Involvement: Resident Care Provided Care Provided: Adult Hospital Medicine (inpatient)
--- NOTE | 2017-08-02 11:31 | Pulmonology Progress Note ---
Pulmonary Progress Note Date of Service Aug 02, 2017. Attending Dr. Toney Subjective Clinically the patient is doing the same, she did not have any events overnight , the patient oral intake has been better, she still having occasional nausea. Objective Physical exam on 08/02/2017 revealed elderly female, very fragile, cachectic, does not appear to be in any respiratory distress, her cough is better, no sputum production, lungs are clear, S1-S2 systolic ejection murmur, multiple digits deformity bilaterally, cachexia. Her labs also were reviewed personally. Assessment & Plan 1. Saccular bronchiectasis. 2. History of MAC. 3. Colonization with Pseudomonas per patient. 4. Hemoptysis, no recurrence, occurred a week ago, with blood-tinged sputum. Did not require any intervention. Patient also is not leaning towards having another bronchoscopy as she did have uneventful procedures 15 years ago. 5. 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 Only corrective surgeries to the hands been done in the past per patient. 6. Malnutrition, the nausea likely related to it. Plan: 1. Pulmonary toilet using incentive spirometry, flutter valve, and if tolerable vibrating vest. 2. No need for bronchoscopy at this point. 3. No need for any treatment for Pseudomonas as it is colonized. 4. Nutrition consult appreciated. 5. Encourage oral intake. 6. Continue Combivent 4 times daily and Asmanex. 7. Disposition plan per Dr. Lemon. 8. No further recommendations from pulmonary standpoint, she will need a follow -up as an outpatient with pulmonary, she is a patient of Dr Mckay. Thank you for the kind referral, will follow as needed. Data Medications: Current Inpatient Medications Medications (Trade) Dose Ordered Sig/Vishal Route Start Time Stop Time Status Last Admin Dose Admin Ioversol (Optiray 320) 111 ml UD PRN IV 07/31/17 18:00 08/04/17 17:59 Acetaminophen (Tylenol Tab) 650 mg Q4H PRN PO 08/01/17 00:30 08/31/17 00:29 08/01/17 01:55 650 MG Al Hydrox/Mg Hydrox/Simethicone (Maalox Max Susp) 15 ml Q4H PRN PO 08/01/17 00:30 08/31/17 00:29 Magnesium Hydroxide (Milk Of Magnesia Susp) 30 ml Q12H PRN PO 08/01/17 00:30 08/31/17 00:29 Ondansetron HCl (Zofran Inj) 4 mg Q6H PRN IV 08/01/17 00:30 08/31/17 00:29 Polyethylene (Miralax Powder Packet) 17 gm DAILY PRN PO 08/01/17 00:30 08/31/17 00:29 Aspirin (Ecotrin Tab) 81 mg Q72H PO 08/01/17 09:00 08/31/17 08:59 08/01/17 08:39 81 MG Lansoprazole (Prevacid Solutab) 15 mg DAILY PRN PO 08/01/17 09:00 08/31/17 08:59 08/01/17 08:01 15 MG Lidocaine (Lidoderm Patch 5%) 1 patch DAILY PRN TD 08/01/17 00:30 08/31/17 00:29 Metoprolol Succinate (Toprol Xl Tab) 12.5 mg BID PO 08/01/17 09:00 08/31/17 08:59 08/02/17 07:56 12.5 MG Ondansetron HCl (Zofran Tab) 4 mg Q6 PRN PO 08/01/17 00:30 08/31/17 00:29 08/01/17 08:02 4 MG Raloxifene HCl (Evista Tab) 60 mg DAILY PO 08/01/17 09:00 08/31/17 08:59 08/02/17 07:55 60 MG Simvastatin (Zocor Tab) 10 mg QPM PO 08/01/17 21:00 08/31/17 20:59 08/01/17 20:42 10 MG Miscellaneous (Remove Lidoderm Patch) 1 ea DAILY@2100 PRN N/A 08/01/17 01:30 08/31/17 01:29 Heparin Sodium (Porcine) 2500 unit/Syringe 0.25 ml @ 0 mls/sec Q12 SC 08/01/17 09:00 08/31/17 08:59 08/02/17 08:24 0.5 MLS/SEC Enteral Nutritional Formula (Boost) 1 can TIDM PO 08/01/17 17:00 08/31/17 16:59 08/02/17 10:42 1 CAN Albuterol/ Ipratropium (Combivent Respimat Inh) 1 puffs QID INH 08/01/17 17:00 08/31/17 16:59 08/02/17 07:55 1 PUFFS Non-Formulary Medication (Non-Formulary Patient'S Own Med) 1 ea QPM INH 08/01/17 21:00 08/31/17 20:59 08/01/17 20:40 1 EA Sodium Chloride 1,000 ml @ 70 mls/hr [id number] IV 08/01/17 17:45 08/31/17 17:44 08/02/17 07:55 70 MLS/HR Vital Signs: Date Time Temp Pulse Resp B/P (MAP) Pulse Ox O2 Delivery O2 Flow Rate FiO2 08/02/17 07:45 Room Air 08/02/17 05:12 152/87 (108) 08/02/17 04:32 36.4 71 19 164/71 (102) 100 Room Air 08/02/17 04:00 Room Air 08/02/17 00:00 Room Air 08/01/17 23:41 36.6 70 18 143/74 (97) 97 Room Air 08/01/17 20:33 74 152/69 (96) 08/01/17 20:14 36.8 83 16 151/68 (95) 91 Room Air 08/01/17 20:00 98 Room Air 08/01/17 16:00 98 Room Air 08/01/17 15:22 36.8 73 16 167/78 (107) 98 Room Air 08/01/17 15:16 66 94 08/01/17 12:00 95 Room Air 08/01/17 11:22 36.6 81 16 100/74 (83) 95 Room Air Laboratory Results: Last 24 Hours Test 08/01/17 11:33 08/01/17 16:46 08/01/17 20:28 08/02/17 06:19 Bedside Glucose 103 mg/dl 88 mg/dl 125 mg/dl Sodium Level 135 mmol/L Potassium Level 4.2 mmol/L Chloride Level 102 mmol/L Carbon Dioxide Level 27 mmol/L Anion Gap 5.0 mmol/L Blood Urea Nitrogen 15 mg/dl Creatinine 0.82 mg/dl Est Creatinine Clear Calc Drug Dose 30.1 ml/min Estimated GFR () 77.8 Estimated GFR (Non- 67.1 BUN/Creatinine Ratio 18.1 Random Glucose 85 mg/dl Calcium Level 8.5 mg/dl Test 08/02/17 07:29 Bedside Glucose 85 mg/dl
[2017-08-02] MEDS: MOMETASONE INH SCH (20:27)
[2017-08-02] MEDS: SIMVASTATIN 10 MG TAB PO SCH (20:28)
[2017-08-03 04:25] VITALS: BP 165/79; PULSE 78; TEMP 36.3; O2SAT 98
[2017-08-03 06:31] LABS: BASO % 0.1 %; BASO ABS # 0.01 K/uL (0-0.2); EOS % 1.3 %; EOS ABS # 0.11 K/uL (0-0.5); HEMATOCRIT 32.8 % (37-47); HEMOGLOBIN 10.7 g/dL (12.0-16.0); IG# 0.02 K/uL (0.00-0.02); LYMPH % 23.2 %; LYMPH ABS # 1.97 K/uL (1.2-3.4); MEAN CELL VOLUME 92.9 fL (80-100); MEAN CORPUSCULAR HEMOGLOBIN 30.3 pg (25-34); MEAN CORPUSCULAR HGB CONC 32.6 g/dl (32-36); MEAN PLATELET VOLUME 9.3 fL (7.4-10.4); MONO % 7.5 %; MONO ABS # 0.64 K/uL (0.11-0.59); NEUT % 67.7 %; NEUT ABS # 5.75 K/uL (1.4-6.5); PLATELET COUNT 285 K/uL (130-400); RED CELL DISTRIBUTION WIDTH CV 15.1 % (11.5-14.5); RED CELL DISTRIBUTION WIDTH SD 51.2 fL (36.4-46.3)
[2017-08-03 07:11] LABS: CALCIUM 8.4 mg/dl (8.5-10.1); CREATININE 0.77 mg/dl (0.60-1.20); POTASSIUM 4.6 mmol/L (3.5-5.1)
[2017-08-03 07:38] VITALS: BP 145/76; PULSE 68; TEMP 36.4; O2SAT 99
[2017-08-03] MEDS: BOOST VANILLA PO SCH ×4 (08:08→18:21)
[2017-08-03] MEDS: RALOXIFENE 60 MG TAB PO SCH (08:09)
[2017-08-03] MEDS: IPRATROPIUM BROMIDE/ALBUTEROL respimat INH INH SCH ×4 (08:09→20:46)
[2017-08-03] MEDS: METOPROLOL SUCC 25MG EXT REL TAB PO SCH ×2 (08:09→20:45)
[2017-08-03] MEDS: HEPARIN SC SCH ×2 (08:10→20:44)
--- NOTE | 2017-08-03 09:32 | Family Medicine Progress Note ---
Progress Note Date of Service Aug 03, 2017. Subjective Pt evaluation today including: conversation w/ patient Found patient eating breakfast. Says that her breathing is much improved since her admission. Says she's working on her PO intake. Denies any present concerns (including CP, SOB). Constitutional: No fever, No chills Respiratory: + cough, + shortness of breath Cardiovascular: No chest pain, No edema Abdomen: No pain, No nausea, No vomiting Medications Current Inpatient Medications Medications (Trade) Dose Ordered Sig/Vishal Route Start Time Stop Time Status Last Admin Dose Admin Ioversol (Optiray 320) 111 ml UD PRN IV 07/31/17 18:00 08/04/17 17:59 Acetaminophen (Tylenol Tab) 650 mg Q4H PRN PO 08/01/17 00:30 08/31/17 00:29 08/01/17 01:55 650 MG Al Hydrox/Mg Hydrox/Simethicone (Maalox Max Susp) 15 ml Q4H PRN PO 08/01/17 00:30 08/31/17 00:29 Magnesium Hydroxide (Milk Of Magnesia Susp) 30 ml Q12H PRN PO 08/01/17 00:30 08/31/17 00:29 Ondansetron HCl (Zofran Inj) 4 mg Q6H PRN IV 08/01/17 00:30 08/31/17 00:29 Polyethylene (Miralax Powder Packet) 17 gm DAILY PRN PO 08/01/17 00:30 08/31/17 00:29 Aspirin (Ecotrin Tab) 81 mg Q72H PO 08/01/17 09:00 08/31/17 08:59 08/01/17 08:39 81 MG Lansoprazole (Prevacid Solutab) 15 mg DAILY PRN PO 08/01/17 09:00 08/31/17 08:59 08/01/17 08:01 15 MG Lidocaine (Lidoderm Patch 5%) 1 patch DAILY PRN TD 08/01/17 00:30 08/31/17 00:29 Metoprolol Succinate (Toprol Xl Tab) 12.5 mg BID PO 08/01/17 09:00 08/31/17 08:59 08/03/17 08:09 12.5 MG Ondansetron HCl (Zofran Tab) 4 mg Q6 PRN PO 08/01/17 00:30 08/31/17 00:29 08/01/17 08:02 4 MG Raloxifene HCl (Evista Tab) 60 mg DAILY PO 08/01/17 09:00 08/31/17 08:59 08/03/17 08:09 60 MG Simvastatin (Zocor Tab) 10 mg QPM PO 08/01/17 21:00 08/31/17 20:59 08/02/17 20:28 10 MG Miscellaneous (Remove Lidoderm Patch) 1 ea DAILY@2100 PRN N/A 08/01/17 01:30 08/31/17 01:29 Heparin Sodium (Porcine) 2500 unit/Syringe 0.25 ml @ 0 mls/sec Q12 SC 08/01/17 09:00 08/31/17 08:59 08/03/17 08:10 0.25 MLS/SEC Enteral Nutritional Formula (Boost) 1 can TIDM PO 08/01/17 17:00 08/31/17 16:59 08/03/17 08:08 1 CAN Albuterol/ Ipratropium (Combivent Respimat Inh) 1 puffs QID INH 08/01/17 17:00 08/31/17 16:59 08/03/17 08:09 1 PUFFS Non-Formulary Medication (Non-Formulary Patient'S Own Med) 1 ea QPM INH 08/01/17 21:00 08/31/17 20:59 08/02/17 20:27 1 EA Sodium Chloride 1,000 ml @ 70 mls/hr [id number] IV 08/01/17 17:45 08/31/17 17:44 08/02/17 22:23 70 MLS/HR Objective Vital Signs Date Time Temp Pulse Resp B/P (MAP) Pulse Ox O2 Delivery O2 Flow Rate FiO2 08/03/17 07:40 Room Air 08/03/17 07:38 36.4 68 16 145/76 (99) 99 08/03/17 04:25 36.3 78 16 165/79 (107) 98 Room Air 08/03/17 04:00 Room Air 08/03/17 00:00 Room Air 08/02/17 23:22 36.5 91 16 124/89 (101) 96 Room Air 08/02/17 20:00 98 Room Air 08/02/17 19:37 36.8 82 18 150/80 (103) 94 Room Air 08/02/17 16:00 98 Room Air 08/02/17 12:00 Room Air 08/02/17 11:24 36.8 77 16 149/78 (101) 98 Room Air Physical Exam Notes: General Appearance: Awake, alert & oriented, comfortable and speaking in full sentences, quite cachetic, NAD. CV: +S1S2 RRR, positive systolic murmur. No peripheral edema. Pulm: Clear to auscultation throughout. Abdomen: +BS, soft, non-tender, non-distended. Extremities: No pedal edema or calf tenderness. Moving all extremities naturally and easily. Significant generalized finger arthritic deformities. Neuro: No gross neuro deficits. Laboratory Results 08/03/17 05:31 Red Blood Count 3.53, Mean Corpuscular Volume 92.9, Mean Corpuscular Hemoglobin 30.3, Mean Corpuscular Hemoglobin Concent 32.6, Mean Platelet Volume 9.3, Neutrophils (%) (Auto) 67.7, Lymphocytes (%) (Auto) 23.2, Monocytes (%) (Auto) 7.5, Eosinophils (%) (Auto) 1.3, Basophils (%) (Auto) 0.1, Neutrophils # (Auto) 5.75, Lymphocytes # (Auto) 1.97, Monocytes # (Auto) 0.64, Eosinophils # (Auto) 0.11, Basophils # (Auto) 0.01 08/03/17 05:31 Test 08/03/17 05:31 08/03/17 07:24 White Blood Count 8.50 K/uL (4.8-10.8) Red Blood Count 3.53 M/uL (4.2-5.4) Hemoglobin 10.7 g/dL (12.0-16.0) Hematocrit 32.8 % (37-47) Mean Corpuscular Volume 92.9 fL (80-100) Mean Corpuscular Hemoglobin 30.3 pg (25-34) Mean Corpuscular Hemoglobin Concent 32.6 g/dl (32-36) Platelet Count 285 K/uL (130-400) Mean Platelet Volume 9.3 fL (7.4-10.4) Neutrophils (%) (Auto) 67.7 % Lymphocytes (%) (Auto) 23.2 % Monocytes (%) (Auto) 7.5 % Eosinophils (%) (Auto) 1.3 % Basophils (%) (Auto) 0.1 % Neutrophils # (Auto) 5.75 K/uL (1.4-6.5) Lymphocytes # (Auto) 1.97 K/uL (1.2-3.4) Monocytes # (Auto) 0.64 K/uL (0.11-0.59) Eosinophils # (Auto) 0.11 K/uL (0-0.5) Basophils # (Auto) 0.01 K/uL (0-0.2) RDW Standard Deviation 51.2 fL (36.4-46.3) RDW Coefficient of Variation 15.1 % (11.5-14.5) Immature Granulocyte % (Auto) 0.2 % Immature Granulocyte # (Auto) 0.02 K/uL (0.00-0.02) Anion Gap 5.0 mmol/L (3-11) Est Creatinine Clear Calc Drug Dose 32.9 ml/min Estimated GFR () 83.9 Estimated GFR (Non- 72.4 BUN/Creatinine Ratio 20.6 (10-20) Calcium Level 8.4 mg/dl (8.5-10.1) Magnesium Level 1.8 mg/dl (1.8-2.4) Bedside Glucose 89 mg/dl (70-90) Assessment and Plan 82 yo female admitted late on [id number] for nausea and fatigue. PMH: JRA, Mycobacterium avium infection and pulmonary nodule, Takotsubo's Cardiomyopathy, melanoma of left lower extremity, asthma Nausea and fatigue: Noted over past > 2 months, worse in recent days. TSH normal. Lyme negative. Suspect multifactorial, see below discussion. Continuing to work on encouraging PO intake. Providing boost supplementation TID as well. - Was previously started on prednisone, held here. Hyponatremia: On admit Na 125, improved with IVF to 138. Probably a source of fatigue. Exact etiology unclear, possible dehydration. Given IVF boluses and rate at present. - Held celebrex in case it is contributing. Hemoptysis / Bronchiectasis: Patient says last hemoptysis a week prior to admit. Sees Dr. Mckay ([place]) as PCM, reported recent moxifloxacin and partial course of bactrim. History of Mycobacterium avium infection. Denies present SOB. Afebrile, no blood leukocytosis, but CT chest suggestive of a chronic infectious issue. Pulmonology consulted, discussed case with Dr. Toney (see his full note). Noted bronchiectasis on the CT scan can explain her cough and episode of mild hemoptysis. Hemoptysis not due to prior GRANT infection. On pulmonary toilet and Combivent inh q6h. Deferred future possible inhaled corticosteroid use to PCM. Symptomatically, she continue to improve with her breathing and cough. Hypomagnesemia: On admit Mg 1.6. Replaced, monitoring. Takotsubo's Cardiomyopathy: History of same. BNP 2405. On metoprolol and ASA. 05Apr echocardiogram noted EF 55-60%, moderate TR, but overall reassuring ( see full report). Sees Dr. Eckert as paralegal instructor. Asthma: History of same. On mometasone. Holding albuterol. HLD: On zocor. CT chest findings: Noted spiculated LLL nodule. Radiology recommended three- month f/u CT chest. Unclear if this is chronic. Code status: Full code Diet: AHA diet DVT prophy: Heparin BID. PT/OT: Ordered. Dispo: Admit to telemetry. Referral made to [facility], with goal of transfer on Saturday. Resident Physician Supervision Note: I interviewed and examined the patient. Discussed with Dr. Horan and agree with findings and plan as documented in the note. Any exceptions or clarifications are listed here: None Documented By: Mynor Lemon feeling ok no complaints waiting on rehab vitals noted nad breathing unlabored bronchiectasis / poor PO intake likely in vicious cycle secondary to frailty/ poor appetite initially from viral GE now resulting in malnutrition and hyopnatremic dehydration --> doing well, all improving, anticipate rehab once available Resident Tracking Resident Involvement: Resident Care Provided Care Provided: Adult Hospital Medicine (inpatient)
[2017-08-03 11:44] VITALS: BP 132/72; PULSE 100; TEMP 36.6; O2SAT 96
[2017-08-03] MEDS: SODIUM CHLORIDE 0.9% 1000ML 1,000 ML IV SCH (12:18)
[2017-08-03 15:16] VITALS: BP 178/90; PULSE 83; TEMP 36.7; O2SAT 97
[2017-08-03 16:05] VITALS: BP 163/85; PULSE 97; TEMP 36.7; O2SAT 96
[2017-08-03] MEDS ORDERED: COUGH DROP (SUGAR FREE) LOZ 24 LOZ/1 BOX LOZ ONE (16:06)
[2017-08-03 19:57] VITALS: BP 175/97; PULSE 96; TEMP 37.1; O2SAT 95
[2017-08-03] MEDS: MOMETASONE INH SCH (20:45)
[2017-08-03] MEDS: SIMVASTATIN 10 MG TAB PO SCH (20:46)
[2017-08-04] VITALS (8 sets, daily range): BP systolic 130–185; BP diastolic 60–100; PULSE 81–102; TEMP 36.4–36.7; O2SAT 95–99
[2017-08-04] MEDS: SODIUM CHLORIDE 0.9% 1000ML 1,000 ML IV SCH ×2 (02:02→16:08)
[2017-08-04] MEDS: LANSOPRAZOLE SOLUTAB 15 MG PO PRN (06:17)
[2017-08-04 06:57] LABS: BASO % 0.2 %; BASO ABS # 0.02 K/uL (0-0.2); EOS % 1.7 %; EOS ABS # 0.16 K/uL (0-0.5); HEMATOCRIT 33.3 % (37-47); HEMOGLOBIN 10.9 g/dL (12.0-16.0); IG# 0.02 K/uL (0.00-0.02); LYMPH % 22.4 %; LYMPH ABS # 2.06 K/uL (1.2-3.4); MEAN CELL VOLUME 93.8 fL (80-100); MEAN CORPUSCULAR HEMOGLOBIN 30.7 pg (25-34); MEAN CORPUSCULAR HGB CONC 32.7 g/dl (32-36); MEAN PLATELET VOLUME 9.6 fL (7.4-10.4); MONO % 5.1 %; MONO ABS # 0.47 K/uL (0.11-0.59); NEUT % 70.4 %; NEUT ABS # 6.46 K/uL (1.4-6.5); PLATELET COUNT 290 K/uL (130-400); RED CELL DISTRIBUTION WIDTH CV 15.1 % (11.5-14.5); RED CELL DISTRIBUTION WIDTH SD 52.2 fL (36.4-46.3); WHITE BLOOD COUNT 9.19 K/uL (4.8-10.8)
[2017-08-04 07:27] LABS: BLOOD UREA NITROGEN 18 mg/dl (7-18); CALCIUM 8.7 mg/dl (8.5-10.1); CARBON DIOXIDE 28 mmol/L (21-32); CREATININE 0.77 mg/dl (0.60-1.20); GLUCOSE 91 mg/dl (70-99); POTASSIUM 4.2 mmol/L (3.5-5.1); SODIUM 139 mmol/L (136-145)
[2017-08-04] MEDS: BOOST VANILLA PO SCH ×3 (07:47→17:00)
[2017-08-04] MEDS: RALOXIFENE 60 MG TAB PO SCH (07:48)
[2017-08-04] MEDS: IPRATROPIUM BROMIDE/ALBUTEROL respimat INH INH SCH ×4 (07:48→20:10)
[2017-08-04] MEDS: ASPIRIN 81 MG ECTAB PO SCH (07:48)
[2017-08-04] MEDS: METOPROLOL SUCC 25MG EXT REL TAB PO SCH ×2 (07:49→20:07)
[2017-08-04] MEDS: HEPARIN SC SCH ×2 (07:50→22:19)
[2017-08-04] MEDS ORDERED: MAGNESIUM OXIDE 400 MG TAB PO ONE (09:00)
--- NOTE | 2017-08-04 09:11 | Family Medicine Progress Note ---
Progress Note Date of Service Aug 04, 2017. Subjective Pt evaluation today including: conversation w/ patient Found patient sitting in bedside chair, pleasantly conversational as always. Says her breathing continues to improve and that she's using her IS + flutter valve, but probably not as much as she should. Denies any acute concerns. Separately, spoke with her daughter yesterday immediately after the patient had a 8-beat run of non-sustained Vtach. Patient says she didn't feel the episode at all. Mentioned that Dr. Eckert is her regular caddie supervisor and that she saw him the day before admission, but ended up not discussing heart issues much due to her breathing issues at the time. Constitutional: No fever, No chills Respiratory: + cough Cardiovascular: No chest pain, No edema Abdomen: No pain, No nausea, No vomiting Medications Current Inpatient Medications Medications (Trade) Dose Ordered Sig/Vishal Route Start Time Stop Time Status Last Admin Dose Admin Ioversol (Optiray 320) 111 ml UD PRN IV 07/31/17 18:00 08/04/17 17:59 Acetaminophen (Tylenol Tab) 650 mg Q4H PRN PO 08/01/17 00:30 08/31/17 00:29 08/01/17 01:55 650 MG Al Hydrox/Mg Hydrox/Simethicone (Maalox Max Susp) 15 ml Q4H PRN PO 08/01/17 00:30 08/31/17 00:29 Magnesium Hydroxide (Milk Of Magnesia Susp) 30 ml Q12H PRN PO 08/01/17 00:30 08/31/17 00:29 Ondansetron HCl (Zofran Inj) 4 mg Q6H PRN IV 08/01/17 00:30 08/31/17 00:29 Polyethylene (Miralax Powder Packet) 17 gm DAILY PRN PO 08/01/17 00:30 08/31/17 00:29 Aspirin (Ecotrin Tab) 81 mg Q72H PO 08/01/17 09:00 08/31/17 08:59 08/04/17 07:48 81 MG Lansoprazole (Prevacid Solutab) 15 mg DAILY PRN PO 08/01/17 09:00 08/31/17 08:59 08/04/17 06:17 15 MG Lidocaine (Lidoderm Patch 5%) 1 patch DAILY PRN TD 08/01/17 00:30 08/31/17 00:29 Metoprolol Succinate (Toprol Xl Tab) 12.5 mg BID PO 08/01/17 09:00 08/31/17 08:59 08/04/17 07:49 12.5 MG Ondansetron HCl (Zofran Tab) 4 mg Q6 PRN PO 08/01/17 00:30 08/31/17 00:29 08/01/17 08:02 4 MG Raloxifene HCl (Evista Tab) 60 mg DAILY PO 08/01/17 09:00 08/31/17 08:59 08/04/17 07:48 60 MG Simvastatin (Zocor Tab) 10 mg QPM PO 08/01/17 21:00 08/31/17 20:59 08/03/17 20:46 10 MG Miscellaneous (Remove Lidoderm Patch) 1 ea DAILY@2100 PRN N/A 08/01/17 01:30 08/31/17 01:29 Heparin Sodium (Porcine) 2500 unit/Syringe 0.25 ml @ 0 mls/sec Q12 SC 08/01/17 09:00 08/31/17 08:59 08/04/17 07:50 0.25 MLS/SEC Enteral Nutritional Formula (Boost) 1 can TIDM PO 08/01/17 17:00 08/31/17 16:59 08/04/17 07:47 1 CAN Albuterol/ Ipratropium (Combivent Respimat Inh) 1 puffs QID INH 08/01/17 17:00 08/31/17 16:59 08/04/17 07:48 1 PUFFS Non-Formulary Medication (Non-Formulary Patient'S Own Med) 1 ea QPM INH 08/01/17 21:00 08/31/17 20:59 08/03/17 20:45 1 EA Sodium Chloride 1,000 ml @ 70 mls/hr [id number] IV 08/01/17 17:45 08/31/17 17:44 08/04/17 02:02 70 MLS/HR Objective Vital Signs Date Time Temp Pulse Resp B/P (MAP) Pulse Ox O2 Delivery O2 Flow Rate FiO2 08/04/17 07:45 Room Air 08/04/17 07:35 36.6 84 16 142/60 (87) 97 Room Air 08/04/17 04:12 36.6 94 18 153/88 (109) 98 Room Air 08/04/17 04:00 Room Air 08/04/17 00:09 36.7 81 20 143/69 (93) 95 Room Air 08/04/17 00:00 Room Air 08/03/17 20:00 Room Air 08/03/17 19:57 37.1 96 18 175/97 (123) 95 Room Air 08/03/17 16:05 36.7 97 18 163/85 (111) 96 Room Air 08/03/17 16:00 Room Air 08/03/17 15:16 36.7 83 20 178/90 (119) 97 Room Air 08/03/17 12:00 Room Air 08/03/17 11:44 36.6 100 16 132/72 (92) 96 Room Air Physical Exam Notes: General Appearance: Awake, alert & oriented, comfortable and speaking in full sentences, quite cachetic, NAD. CV: +S1S2 RRR, positive systolic murmur. No peripheral edema. Pulm: Clear to auscultation throughout. Abdomen: +BS, soft, non-tender, non-distended. Extremities: No pedal edema or calf tenderness. Moving all extremities naturally and easily. Significant generalized finger arthritic deformities. Neuro: No gross neuro deficits. Laboratory Results 08/04/17 06:08 Red Blood Count 3.55, Mean Corpuscular Volume 93.8, Mean Corpuscular Hemoglobin 30.7, Mean Corpuscular Hemoglobin Concent 32.7, Mean Platelet Volume 9.6, Neutrophils (%) (Auto) 70.4, Lymphocytes (%) (Auto) 22.4, Monocytes (%) (Auto) 5.1, Eosinophils (%) (Auto) 1.7, Basophils (%) (Auto) 0.2, Neutrophils # (Auto) 6.46, Lymphocytes # (Auto) 2.06, Monocytes # (Auto) 0.47, Eosinophils # (Auto) 0.16, Basophils # (Auto) 0.02 08/04/17 06:08 Test 08/04/17 06:08 08/04/17 07:06 White Blood Count 9.19 K/uL (4.8-10.8) Red Blood Count 3.55 M/uL (4.2-5.4) Hemoglobin 10.9 g/dL (12.0-16.0) Hematocrit 33.3 % (37-47) Mean Corpuscular Volume 93.8 fL (80-100) Mean Corpuscular Hemoglobin 30.7 pg (25-34) Mean Corpuscular Hemoglobin Concent 32.7 g/dl (32-36) Platelet Count 290 K/uL (130-400) Mean Platelet Volume 9.6 fL (7.4-10.4) Neutrophils (%) (Auto) 70.4 % Lymphocytes (%) (Auto) 22.4 % Monocytes (%) (Auto) 5.1 % Eosinophils (%) (Auto) 1.7 % Basophils (%) (Auto) 0.2 % Neutrophils # (Auto) 6.46 K/uL (1.4-6.5) Lymphocytes # (Auto) 2.06 K/uL (1.2-3.4) Monocytes # (Auto) 0.47 K/uL (0.11-0.59) Eosinophils # (Auto) 0.16 K/uL (0-0.5) Basophils # (Auto) 0.02 K/uL (0-0.2) RDW Standard Deviation 52.2 fL (36.4-46.3) RDW Coefficient of Variation 15.1 % (11.5-14.5) Immature Granulocyte % (Auto) 0.2 % Immature Granulocyte # (Auto) 0.02 K/uL (0.00-0.02) Anion Gap 6.0 mmol/L (3-11) Est Creatinine Clear Calc Drug Dose 33.3 ml/min Estimated GFR () 83.9 Estimated GFR (Non- 72.4 BUN/Creatinine Ratio 23.2 (10-20) Calcium Level 8.7 mg/dl (8.5-10.1) Magnesium Level 1.9 mg/dl (1.8-2.4) Troponin I < 0.015 ng/ml (0-0.045) Bedside Glucose 89 mg/dl (70-90) Assessment and Plan 82 yo female admitted late on [id number] for nausea and fatigue. PMH: JRA, Mycobacterium avium infection and pulmonary nodule, Takotsubo's Cardiomyopathy, melanoma of left lower extremity, asthma Nausea and fatigue: Noted over past > 2 months, worse in recent days. TSH normal. Lyme negative. Suspect multifactorial, see below discussion. Continuing to work on encouraging PO intake. Providing boost supplementation TID as well. - Was previously started on prednisone, held here. - Overall recommendation for at least 1000 calories per day as well as 50-60 ounces of fluid intake daily. Hyponatremia: On admit Na 125, improved with IVF to 139. Probably was a source of fatigue. Exact etiology unclear, possible dehydration. Given IVF boluses and rate at present. - Held celebrex in case it is contributing. Hemoptysis / Bronchiectasis: Patient says last hemoptysis a week prior to admit. Sees Dr. Mckay ([place]) as PCM, reported recent moxifloxacin and partial course of bactrim. History of Mycobacterium avium infection. Denies present SOB. Afebrile, no blood leukocytosis, but CT chest suggestive of a chronic infectious issue. Pulmonology consulted, discussed case with Dr. Toney (see his full note). Noted bronchiectasis on the CT scan can explain her cough and episode of mild hemoptysis. Hemoptysis not due to prior GRANT infection. On pulmonary toilet and Combivent inh q6h. Deferred future possible inhaled corticosteroid use to PCM. Symptomatically, she continue to improve with her breathing and cough. - Encourage continued IS and flutter valve use. Has not used the vest yet. Hypomagnesemia: On admit Mg 1.6. Replaced, monitoring. Takotsubo's Cardiomyopathy: History of same. BNP 2405. On metoprolol and ASA. 05Apr echocardiogram noted EF 55-60%, moderate TR, but overall reassuring ( see full report). Sees Dr. Eckert as caddie supervisor. Patient says she saw him the day before admit and didn't end up talking about her heart due to pulm issues. She's aware she needs close f/u with him on discharge. - Patient did have a single episode of eight-beat, non-sustained, asymptomatic V tach during her stay (07Apr). Asthma: History of same. On mometasone. Holding albuterol. HLD: On zocor. CT chest findings: Noted spiculated LLL nodule. Radiology recommended three- month f/u CT chest. Unclear if this is chronic. Code status: Full code Diet: AHA diet DVT prophy: Heparin BID. PT/OT: Ordered. Dispo: Admit to telemetry. Referral made to [facility], with goal of transfer on Saturday. Resident Physician Supervision Note: I interviewed and examined the patient. Discussed with Dr. Horan and agree with findings and plan as documented in the note. Any exceptions or clarifications are listed here: None Documented By: Mynor Lemon feeling ok no complaints waiting on rehab, son on phone - extensive discussion with him and updated, he expressed understanding vitals noted nad breathing unlabored bronchiectasis / poor PO intake likely in vicious cycle secondary to frailty/ poor appetite initially from viral GE now resulting in malnutrition and hyopnatremic dehydration --> doing well, stable for rehab, all improving, anticipate rehab once available Resident Tracking Resident Involvement: Resident Care Provided Care Provided: Adult Hospital Medicine (inpatient)
--- NOTE | 2017-08-04 12:03 | Discharge Instructions ---
Discharge Instructions Date of Service Aug 04, 2017. Admission Reason for Admission: Dehydration; Hyponatremia Discharge Discharge Diagnosis / Problem: Bronchiectasis, nausea, hyponatremia Discharge Goals Goal(s): Improve function, Increase independence, Improve disease control, Improve nutritional status, Learn about illness Activity Recommendations Activity Level: Up Ad Roxanne Therapies: Physical Therapy, Occupational Therapy . Additional Information Patient informed of condition: Yes Advance Directives: No ((unsure)) DNR: No Level of Care: Skilled Communicable Disease: No Prognosis: Improving Jones Catheter: No Instructions / Follow-Up Instructions / Follow-Up Ms. Geovanna Youngblood was admitted for evaluation of nausea and fatigue over the past few weeks. She was treated here for bronchiectasis (which is the likely cause for a single-episode of hematemesis about a week prior to admit), hyponatremia, hypomagnesemia, and to work on her overall PO intake. - We would recommend you continue to encourage her PO intake, at least 1000 calories a day. Her food intake has improved and she has been supplementing with boost TID. - We would recommend around 50-60 ounces of fluid intake per day. She has received IV fluids here for rehydration. - Please have her continue use of her incentive spirometer and flutter valve. She did not start use of a vibration vest here, but that remains an option. - She needs close follow up with her primary care provider as well as her frame nailer (Dr. Eckert) for ongoing care. Current Hospital Diet Patient's current hospital diet: Regular Diet Discharge Diet Recommended Diet: Regular Diet (with boost supplementation) Pending Studies Studies pending at discharge: no Medical Emergencies . Who to Call and When: Medical Emergencies: If at any time you feel your situation is an emergency, please call 911 immediately. . Non-Emergent Contact Non-Emergency issues call your: Primary Care Provider . Core Measure Problem Core Measures: None VTE Core Measures Reason no anticoag overlap I/P: Treatment provided - N/A Reason no anticoag overlap @DC: Treatment provided - N/A
[2017-08-04] MEDS ORDERED: IPRA1AER2 INH (12:05)
[2017-08-04] MEDS: MOMETASONE INH SCH ×2 (19:41→20:12)
[2017-08-04] MEDS: SIMVASTATIN 10 MG TAB PO SCH (20:10)
[2017-08-05 04:22] VITALS: BP 154/102; PULSE 79; TEMP 36.4; O2SAT 96
[2017-08-05] MEDS: SODIUM CHLORIDE 0.9% 1000ML 1,000 ML IV SCH (05:38)
[2017-08-05 07:20] VITALS: BP 154/74; PULSE 61; TEMP 36.6; O2SAT 98
[2017-08-05] MEDS: BOOST VANILLA PO SCH ×2 (08:30→11:43)
[2017-08-05] MEDS: RALOXIFENE 60 MG TAB PO SCH (08:31)
[2017-08-05] MEDS: METOPROLOL SUCC 25MG EXT REL TAB PO SCH (08:31)
[2017-08-05] MEDS: IPRATROPIUM BROMIDE/ALBUTEROL respimat INH INH SCH ×2 (08:31→12:59)
[2017-08-05] MEDS: HEPARIN SC SCH (08:32)
[2017-08-05 14:33] VITALS: BP 154/74; PULSE 61; TEMP 36.6; O2SAT 98
--- NOTE | 2017-08-05 16:05 | Discharge Summary ---
Discharge Summary Date of Service Aug 05, 2017. Discharge Summary Admission Date: Aug 01, 2017 at 00:24 Discharge Date: Aug 04, 2017 Discharge Disposition: senior living facility Principal Diagnosis: Bronchiectasis Problems/Secondary Diagnoses: Nausea, fatigue, Hyponatremia, Hypomagnesemia, Takotsubo's Cardiomyopathy, Asthma, HLD Immunizations: Have You Had Influenza Vaccine: Yes History of Tetanus Vaccine?: Yes History of Pneumococcal: Yes History of Hepatitis B Vaccine: No Medication Reconciliation New Medications: Ipratropium-Albuterol (Combivent Respimat) 1 Aer Aer 1 PUFFS INH QID for 30 Days, #1 UNIT 0 Refills Continued Medications: Acetaminophen (Tylenol Arthritis Ext Rel) 650 Mg Cplt 650 MG PO Q8HR PRN, 0 Refills Aspirin Enteric Coated (Ecotrin Or Generic) 81 Mg Tab 81 MG PO 2XWK, TAB Celecoxib (Celebrex) 100 Mg Cap 100 MG PO DAILY PRN for Pain, CAP Lansoprazole (Prevacid Solutab) 15 Mg Sharita 15 MG PO PRN, TAB Lidocaine (Lidocaine) 5 % Pad 1 PATCH TD DAILY PRN for Pain Metoprolol Succ (Toprol Xl) (Toprol-Xl) 25 Mg Tabcr 12.5 MG PO BID, 0 Refills Mometasone Furoate (Inhalation (Asmanex 30 Metered Doses) 110 Mcg/Inh Aer 1 PUFF INH qp Multiple Minerals W/ Vitamins (Citracal Plus) 1 Tab Tab 2 TABS PO DAILY Multivitamins/Minerals (Mvi With Minerals) Tab 1 TAB PO DAILY, TAB Ondansetron Hcl (Zofran) 4 Mg Tab 4 MG PO Q6 PRN for Nausea, TAB Raloxifene Hcl (Evista) 60 Mg Tab 60 MG PO DAILY, TAB Simvastatin (Zocor) 10 Mg Tab 10 MG PO QPM, 0 Refills Discontinued Medications: Albuterol Sulfate (Proair Respiclick) 108 Mcg/Act Aer 2 PUFF PO Q4 Prednisone (Prednisone) 5 Mg Tab 5 MG PO DAILY, TAB Discharge Exam Review of Systems: Constitutional: No fever, No chills Respiratory: + cough, No sputum, No wheezing Abdomen: No nausea, No vomiting Physical Exam: General Appearance: WD/WN, no apparent distress Eyes: PERRL, EOMI ENT: hearing grossly normal Respiratory/Chest: chest non-tender, no respiratory distress, no accessory muscle use, + decreased breath sounds Cardiovascular: no edema Abdomen / GI: normal bowel sounds Extremities: no calf tenderness, no pedal edema, normal range of motion Neurologic/Psychiatric: alert, normal mood/affect, oriented x 3 Skin: normal color, warm/dry Hospital Course 82 yo female admitted on [id number] for nausea and fatigue. PMH: JRA, Mycobacterium avium infection and pulmonary nodule, Takotsubo's Cardiomyopathy, melanoma of left lower extremity, asthma FTT - Nausea and fatigue: Noted over past > 2 months, worse in recent days. TSH normal. Lyme negative. Suspect multifactorial, see below discussion. Encourage PO intake. Providing boost supplementation TID as well. - Was previously started on prednisone, held here. - Overall recommendation for at least 1000 calories per day as well as 50-60 ounces of fluid intake daily. - Patient made conscious effort to eat and drink more Hyponatremia: On admit Na 125, improved with IVF to 139. Probably was a source of fatigue. Exact etiology unclear, possible dehydration. Hemoptysis / Bronchiectasis: Patient says last hemoptysis a week prior to admit. Reported recent moxifloxacin and partial course of bactrim. History of Mycobacterium avium infection. Denies present SOB. Afebrile, no blood leukocytosis, but CT chest suggestive of a chronic infectious issue. Pulmonology consulted, noted bronchiectasis on the CT scan can explain her cough and episode of mild hemoptysis. Hemoptysis not due to prior GRANT infection. Pulmonary toilet and Combivent inh q6h while admitted. - Defer future possible inhaled corticosteroid use to PCP. - Encourage continued IS and flutter valve use. Hypomagnesemia: On admit Mg 1.6. Replaced, resolved. Takotsubo's Cardiomyopathy: History of same. BNP 2405. On metoprolol and ASA. 05Apr echocardiogram noted EF 55-60%, moderate TR, but overall reassuring ( see full report). Sees Dr. Eckert as sheet tester. Patient says she saw him the day before admit and didn't end up talking about her heart due to pulm issues. She's aware she needs close f/u with him on discharge. - Patient did have a single episode of eight-beat, non-sustained, asymptomatic V tach during her stay (07Apr). - Needs f/u with Dr. Eckert Asthma: History of same. On mometasone. Held albuterol while inpatient HLD: On zocor. Spiculated LLL nodule on CT chest findings: -Recommended three-month f/u CT chest. Unclear if this is chronic. Code status: Full code Total Time Spent: Greater than 30 minutes This includes examination of the patient, discharge planning, medication reconciliation, and communication with other providers. Discharge Instructions Please refer to the electronic Patient Visit Report (Discharge Instructions) for additional information. Additional Copies To Kuldip Mckay M.D. Resident Tracking Resident Involvement: Resident Care Provided Care Provided: Adult [facility] Medicine Reviewed: Pt Seen/Exam by Me History doing well. oral intake well. Constitutional: denies: fever Respiratory: negative: short of breath Cardiovascular: denies chest pain Gastrointestinal/Abdominal: negative: abdominal pain General Appearance: no apparent distress Respiratory: lungs clear, no respiratory distress Cardiovascular: regular rate, rhythm Gastrointestinal: soft Neurologic/Psychiatric: alert, oriented x 3 Skin Characteristics: warm/dry Assessment/Plan Resident Physician Supervision Note: I independently interviewed and examined the patient and verified the lawrence history and physical, reviewed labs and image studies, discussed the case with the resident Dr. Olivares and agree with the findings and care plan. Time spent in discharge 35 min
== END 2017-08-05 16:10 | DRG 191 ==
LOC: C.EDB 17:25 → C.MED 08-01 00:24 → ENRESERV 08-01 01:11
PROVIDERS: ADMIT Hospitalist; ATTEND Family Medicine
DX: J47.9 Bronchiectasis, uncomplicated (principal); E87.1 Hypo-osmolality and hyponatremia; R64 Cachexia; E46 Unspecified protein-calorie malnutrition; Z68.1 Body mass index [BMI] 19.9 or less, adult; I51.81 Takotsubo syndrome; E83.42 Hypomagnesemia; R91.1 Solitary pulmonary nodule; J45.909 Unspecified asthma, uncomplicated; M08.041 Unspecified juvenile rheumatoid arthritis, right hand; M08.0 Unspecified juvenile rheumatoid arthritis; I07.1 Rheumatic tricuspid insufficiency; Z85.820 Personal history of malignant melanoma of skin; Z86.19 Personal history of other infectious and parasitic diseases; Z77.22 Contact with and (suspected) exposure to environmental tobacco smoke (acute) (chronic); Z79.1 Long term (current) use of non-steroidal anti-inflammatories (NSAID); Z79.51 Long term (current) use of inhaled steroids; Z79.810 Long term (current) use of selective estrogen receptor modulators (SERMs); Z79.82 Long term (current) use of aspirin; Z79.899 Other long term (current) drug therapy; Z88.0 Allergy status to penicillin; Z88.5 Allergy status to narcotic agent; Z88.6 Allergy status to analgesic agent; Z88.8 Allergy status to other drugs, medicaments and biological substances

== ENCOUNTER → 2017-09-02 | Outpatient (CLI) | payer BC ==
[~2017-09-02] MED LIST changes: -ASMTWH INH; -ASPEC81 PO; +ASPI-319 PO; -BENZ100C84 PO; +CELE100C PO; -CLB100 PO; -CLTP PO; -EVS60 PO; -FSM70 PO; +IPRA1AER2 INH; -LANS15CA6 PO; +LANS15TA2 PO; +LIDO1PAD2 TD; -LIDO5DIS10 TD; +MOME110A INH; -MULT-506 PO; +MULT-513 PO; +MULT-663 PO; -OMEG10007 PO; +ONDA4TAB46 PO; +RALO60TA30 PO; -TRAM-10 PO
== END | disposition home or self-care (01) ==
LOC: C.PAPS 09:45
PROVIDERS: ATTEND Obstetrics & Gynecology
DX: Z01.419 Encounter for gynecological examination (general) (routine) without abnormal findings (principal)

== ENCOUNTER 2017-09-15 17:22 | Emergency (ER) | payer BC ==
[~2017-09-15] VITALS: Ht 162.6 cm; Wt 37.8 kg
[2017-09-15 17:24] VITALS: TEMP 36.7; Ht 162.6 cm; Wt 37.8 kg
[2017-09-15] MEDS ORDERED: RANITIDINE HCL 150 MG TAB PO STA (17:40)
--- NOTE | 2017-09-15 18:07 | EMERGENCY ROOM VISIT NOTE ---
History Report prepared by Renae: Christy Cruz Under the Supervision of: Dr. Raulito Simpson M.D. First contact with patient: 17:30 Chief Complaint: ALLERGIC REACTION Stated Complaint: ALLERGIC REACTION, SWOLLEN LIP,TONGUE,THROAT History of Present Illness The patient is an 82 year old female who presents to the Emergency Room with complaints of an episode of an allergic reaction starting 2 hours ago. The patient states that she had just finished grocery shopping and was at home putting the groceries away. She states that she sat down after to rest and noticed a strange sensation to the right side of her lip. She reports that it continued to get worse and it started to swell. She reports that she noticed it started to move into her tongue and then down her throat. She states that she put ice on her lip and it helped with some of the swelling. The patient states that her neighbor who is a elocution teacher recommended that she come to the ED. She states that she has had this happen before when she has come in contact with scallops. She states that she did buy a bag of shrimp at the store and is unsure if someone handled scallops before handling the bag of shrimp. The patient notes that her tongue still feels strange. She states that she has been at her baseline health for the last few days. The patient denies shortness of breath, itching, and taking anything for the reaction. The patient notes that she is on hypertension medication and took an antacid last night before bed. She states that it was the first time she had to take an antacid in a while. She notes that the antacid helped and she was able to go back to sleep. Source of History: patient Onset: 2 hours ago Position: other (global) Quality: other (allergic reaction) Timing: other (episode) Modifying Factors (Relieving): ice Associated Symptoms: + diarrhea, No SOB Note: The patient complains of her right lip swelling, her tongue swelling, and the sensation moving into her throat. The patient denies itching. Review of Systems See HPI for pertinent positives & negatives. A total of 10 systems reviewed and were otherwise negative. Past Medical & Surgical Medical Problems: (1) Gastrointestinal problem Family History No pertinent family history Social History Smoking Status: Never Smoker Drug Use: none Marital Status: Housing Status: lives alone Occupation Status: retired Current/Historical Medications Scheduled Acetaminophen (Tylenol Arthritis Ext Rel), 650 MG PO Q8HR PRN Aspirin Enteric Coated (Ecotrin Or Generic), 81 MG PO 2XWK Ipratropium-Albuterol (Combivent Respimat), 1 PUFFS INH QID Lansoprazole (Prevacid Solutab), 15 MG PO PRN Metoprolol Succ (Toprol Xl) (Toprol-Xl), 12.5 MG PO BID Mometasone Furoate (Inhalation (Asmanex 30 Metered Doses), 1 PUFF INH qp Multiple Minerals W/ Vitamins (Citracal Plus), 2 TABS PO DAILY Multivitamins/Minerals (Mvi With Minerals), 1 TAB PO DAILY Prednisone (Prednisone), 1 TAB PO DAILY Raloxifene Hcl (Evista), 60 MG PO DAILY Simvastatin (Zocor), 10 MG PO QPM Scheduled PRN Celecoxib (Celebrex), 100 MG PO DAILY PRN for Pain Lidocaine (Lidocaine), 1 PATCH TD DAILY PRN for Pain Ondansetron Hcl (Zofran), 4 MG PO Q6 PRN for Nausea Allergies Coded Allergies: Meperidine (Verified Allergy, Mild, RESP ARREST, 09/15/17) Midazolam (Verified Allergy, Mild, RESP ARREST, 09/15/17) Amoxicillin (Verified Allergy, Unknown, FROM AUGMENTIN, 09/15/17) Clavulanic Acid (Verified Allergy, Unknown, 09/15/17) Replaces AUGMENTIN 250 Codeine (Verified Allergy, Unknown, 09/15/17) Penicillins (Verified Allergy, Unknown, 09/15/17) Replaces AUGMENTIN 250 Ibuprofen (Verified Adverse Reaction, Mild, UPSETS HER STOMACH, 09/15/17) Physical Exam Vital Signs Date Time Temp Pulse Resp B/P (MAP) Pulse Ox O2 Delivery O2 Flow Rate FiO2 09/15/17 20:04 75 16 178/80 96 Room Air 09/15/17 18:33 78 16 151/59 96 Room Air 09/15/17 17:59 82 16 155/72 97 Room Air 09/15/17 17:57 84 09/15/17 17:24 36.7 84 18 140/85 97 Room Air Physical Exam GENERAL: Patient is in no acute distress. HEENT: No acute trauma, normocephalic atraumatic, mucous membranes moist, no nasal congestion, no scleral icterus. Very subtle swelling of the right upper lip. Possibly some mild swelling to the right tongue. No uvular edema. No facial erythema. NECK: No stridor, no adenopathy, no meningismus, trachea is midline. LUNGS: Clear to auscultation bilaterally, no wheeze, no rhonchi, breath sounds equal. HEART: Without murmurs gallops or rubs, regular rate and rhythm. ABDOMEN: Soft, nontender, bowel sounds positive, no hernias, no peritonitis. EXTREMITIES: No cyanosis or edema, full range of motion of all the joints without pain or difficulty, no signs for acute trauma. NEUROLOGIC: Oriented x 3, no acute motor or sensory deficits, no focal weakness. SKIN: No rash, no jaundice, no diaphoresis. Medical Decision & Procedures Medications Administered Medications (Trade) Dose Ordered Sig/Vishal Route Start Time Stop Time Status Last Admin Dose Admin Diphenhydramine HCl (Benadryl Cap) 25 mg NOW ONCE PO 09/15/17 17:45 09/15/17 17:46 DC 09/15/17 17:45 25 MG Ranitidine HCl (zANTac TAB) 150 mg NOW STAT PO 09/15/17 17:40 09/15/17 17:43 DC 09/15/17 17:53 150 MG Prednisone (PredniSONE TAB) 40 mg NOW STAT PO 09/15/17 17:40 09/15/17 17:43 DC 09/15/17 17:53 40 MG ED Course 1729: The patient was evaluated in room A11B. A complete history and physical exam was performed. 1739: Ordered Prednisone 40 mg PO, Ranitidine HCl 150 mg PO. 1744: Ordered Benadryl Cap 25 mg PO. 2011: Reevaluated the patient. Discussed results and discharge instructions: She verbalized understanding and agreement. The patient is ready for discharge. Medical Decision Differential diagnoses include angioedema, medication reaction, allergic reaction, uvular edema, airway compromise, wheezing. Patient presents with the sensation of some right upper lip swelling and some tongue swelling. 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 The patient was given oral Benadryl, oral prednisone and oral Zantac. She was watched here for a few hours , her symptoms resolved. On exam, the patient is not hypoxic or toxic. There is no airway compromise, no uvular edema. She is being discharged on continued doses of Benadryl and prednisone for the next 4 days. She will return if worsening. She can follow with her doctors office for a recheck. I did consider angioedema as a cause for her symptoms, she however does not take medications typically associated with this type of issue. Medication Reconcilliation Current Medication List: was personally reviewed by me Blood Pressure Screening Patient's blood pressure: Elevated blood pressure Blood pressure disposition: Referred to PCP Impression Primary Impression: Allergic reaction Scribe Attestation The scribe's documentation has been prepared under my direction and personally reviewed by me in its entirety. I confirm that the note above accurately reflects all work, treatment, procedures, and medical decision making performed by me. Departure Information Dispostion Home / Self-Care Prescriptions Prednisone (Prednisone) 20 Mg Tab 1 TAB PO DAILY for 4 Days, #4 TAB Prov: Raulito Simpson M.D. 09/15/17 Referrals Kuldip Mckay M.D. (PCP) Forms HOME CARE DOCUMENTATION FORM, IMPORTANT VISIT INFORMATION Patient Instructions My [facility] Additional Instructions benadryl 1 tab (25 mg) every 8 hours for 4 more days--next dose in the early am tomorrow prednisone daily for 4 more days--next dose tomorrow return if worsening follow with your doctor this week for a reheck
[2017-09-15 20:04] VITALS: BP 178/80; PULSE 75; O2SAT 96
[2017-09-15] MEDS ORDERED: PRED20TA PO (20:17)
== END 2017-09-15 20:23 | disposition home or self-care (01) ==
LOC: C.EDB 17:23 → C.EDA 20:23
DX: T78.40XA Allergy, unspecified, initial encounter (principal); X58.XXXA Exposure to other specified factors, initial encounter; Z79.82 Long term (current) use of aspirin; Z79.899 Other long term (current) drug therapy; Z88.8 Allergy status to other drugs, medicaments and biological substances; Z88.0 Allergy status to penicillin; Z88.5 Allergy status to narcotic agent; Z88.6 Allergy status to analgesic agent

== ENCOUNTER → 2017-12-06 | Outpatient (CLI) | payer OTHER, BC ==
[2017-12-06 12:57] LABS: BLOOD UREA NITROGEN 23 mg/dl (7-18); CALCIUM 8.8 mg/dl (8.5-10.1); CARBON DIOXIDE 30 mmol/L (21-32); CREATININE 0.96 mg/dl (0.60-1.20); GLUCOSE 98 mg/dl (70-99); POTASSIUM 4.1 mmol/L (3.5-5.1); SODIUM 138 mmol/L (136-145)
== END | disposition home or self-care (01) ==
LOC: C.LAB1850 11:24
PROVIDERS: ATTEND Physician Assistant Medical
DX: R25.2 Cramp and spasm (principal)

== ENCOUNTER 2018-05-27 22:19 | Inpatient (IN) ==
[2018-05-27] MEDS ORDERED: ONDANSETRON INJ 2 MG/ML 2 ML VIAL IV STA (22:22)
[2018-05-27] MEDS ORDERED: MoRPHine SULFATE 4 MG/ML 1 ML CARP\\VIAL IV STA (22:22)
[2018-05-27] MEDS ORDERED: SODIUM CHLORIDE 0.9% 1000ML 1,000 ML IV SCH (22:30)
[2018-05-27 23:13] LABS: Basophils # (auto) 0.01 K/uL (0-0.2); Basophils % (auto) 0.1 %; Eosinophils # (auto) 0.05 K/uL (0-0.5); Eosinophils % (auto) 0.3 %; Hematocrit (blood only) 38.3 % (37-47); Hemoglobin 12.7 g/dL (12.0-16.0); Immature Granulocytes # (auto) 0.06 K/uL (0.00-0.02); Immature Granulocytes % (auto) 0.4 %; Lymphocytes # (auto) 2.06 K/uL (1.2-3.4); Lymphocytes % (auto) 12.4 %; Mean Corpuscular Hgb Conc 33.2 g/dL (32-36); Mean Corpuscular Volume 92.3 fL (80-100); Mean Platelet Volume 10.2 fL (7.4-10.4); Monocytes % (auto) 3.6 %; Neutrophils # (auto) 13.81 K/uL (1.4-6.5); Neutrophils % (auto) 83.2 %; Platelet Count 267 K/uL (130-400); RDW Coefficient of Variation 14.3 % (11.5-14.5); Red Blood Count 4.15 M/uL (4.2-5.4); White Blood Count 16.59 K/uL (4.8-10.8)
[2018-05-27 23:15] LABS: Appearance Urine Clear (Clear); Bacteria Urine Automated Negative (Negative); Bilirubin Urine Negative (Negative); Color Urine Yellow; Glucose Urine UA Negative (Negative); Ketones Urine 1+ (Negative); Leukocyte Esterase Urine Trace (Negative); Nitrite Urine Negative (Negative); Protein Urine Negative (Negative); Urobilinogen Urine Negative (Negative); pH Urine 8.5 (4.5-7.5)
[2018-05-27] MEDS ORDERED: IOVERSOL 100ml IV PRN (23:18)
[2018-05-27 23:20] LABS: iSTAT Hemoglobin 13.6 g/dl (12.0-16.0); iSTAT Ionized Calcium 1.06 mmol/l (1.12-1.32)
[2018-05-27 23:31] LABS: Albumin Level 3.6 gm/dl (3.4-5.0); BUN Creatinine Ratio 18.9 (10-20); Calcium 9.9 mg/dl (8.5-10.1); Creatinine Clr Calc Pharmacy 28.2 ml/min; Est GFR (African American) 51.7; Est GFR (Non-African American) 44.6; Potassium 4.3 mmol/L (3.5-5.1)
[2018-05-27 23:34] LABS: Albumin Globulin Ratio 0.8 (0.9-2); Bilirubin,Total 0.5 mg/dl (0.2-1); Globulin 4.3 gm/dl (2.5-4.0); Total Protein 7.9 gm/dl (6.4-8.2)
[2018-05-28] MEDS ORDERED: ONDANSETRON INJ 2 MG/ML 2 ML VIAL IV STA ×2 (00:56→03:37)
[2018-05-28] MEDS ORDERED: MoRPHine SULFATE 2 MG/ML CARP IV STA (00:57)
[2018-05-28] MEDS ORDERED: SODIUM CHLORIDE 0.9% 500 ML IV SCH (01:00)
--- NOTE | 2018-05-28 02:53 | Emergency Department Note ---
Entered by Raulito Roberts acting as a scribe for History of Present Illness General Chief complaint: Abdominal Pain Stated complaint: AB PAIN, NAUSEA, VOMITING Time Seen by Provider: 05/27/18 22:20 Source: patient History of Present Illness Onset (ago): day(s) (yesterday afternoon) Location: abdomen Severity: moderate Pain Consistency: + constant Associated symptoms: + denies other symptoms (blood in vomit, urinary symptoms) and + nausea/vomiting (resolved with Zofran) The patient is an 82 y/o white female w/ PMHx of HLD, appendectomy who presents to the ED w/ CC of constant, moderate, lower abdominal pain beginning yesterday afternoon. The patient states she has never had pain like this before. She reports she has had mild gas throughout the day, and her last BM was this morning. The patient notes she was nauseous and vomited a few times today. She states she took Zofran, and her nausea resolved. The patient reports she also tried Tylenol for her discomfort, but that did not help. She denies a history of a bowel obstruction, blood in her vomit, urinary symptoms, and a history of a hysterectomy or cholecystectomy. Home Medications Home Medications Medication Instructions Recorded Confirmed Type Caltrate 600 + D 2 tab PO DAILY 05/28/18 05/28/18 History albuterol sulfate 2 puff INHALATION Q6H PRN 05/28/18 05/28/18 History aspirin 81 mg PO 2XWK 05/28/18 05/28/18 History celecoxib [Celebrex] 100 mg PO DAILY PRN 05/28/18 05/28/18 History lidocaine [Lidoderm] 1 patch TOPICAL DAILY PRN 05/28/18 05/28/18 History metoprolol succinate [Toprol XL] 12.5 mg PO TID 05/28/18 05/28/18 History mometasone [Asmanex Twisthaler] 1 puff INHALATION DAILY 05/28/18 05/28/18 History multivitamin [Multiple Vitamins] 1 tab PO DAILY 05/28/18 05/28/18 History raloxifene [Evista] 60 mg PO DAILY 05/28/18 05/28/18 History simvastatin 10 mg PO HS 05/28/18 05/28/18 History Allergies Allergy/AdvReac Type Severity Reaction Status Date / Time meperidine Allergy Mild RESP ARREST Verified 05/28/18 01:40 midazolam Allergy Mild RESP ARREST Verified 05/28/18 01:40 amoxicillin Allergy Unknown FROM Verified 05/28/18 01:40 AUGMENTIN clavulanic acid Allergy Unknown Unknown Verified 05/28/18 01:40 codeine Allergy Unknown Unknown Verified 05/28/18 01:40 Penicillins Allergy Unknown Unknown Verified 05/28/18 01:40 ibuprofen AdvReac Mild UPSETS HER Verified 05/28/18 01:40 STOMACH Past Med/Surg History Medical History HLD (hyperlipidemia) (Chronic) Surgical History History of appendectomy (Resolved) Family History Other Family history non-contributory Social History Feels Safe at Home: Yes Smoking Status: Never smoker Preferred Language: [place] Citizen Review of Systems See HPI for pertinent positives & negatives. and A total of 10 systems reviewed and were otherwise negative Physical Exam Vital Signs Vital Signs - 24 hr 05/27/18 22:31 05/27/18 22:32 05/27/18 22:41 Temperature 36.6 C Temperature Source Oral Sepsis Recent Fever Within 48 Hours No Sepsis New/Unexplained Change in Mental Status No Sepsis Action Taken by Nursing No Action Required Pulse Rate 98 H 92 H Pulse Rate [Left Finger] Respiratory Rate 28 H 23 Respiratory Effort / Characteristics Non-Labored Spontaneous Respiratory Depth Normal Blood Pressure 191/84 H 166/109 H Blood Pressure [Left Arm] Blood Pressure Mean 119 128 Blood Pressure Mean [Left Arm] Pulse Oximetry 100 100 Oxygen Delivery Method Room Air Room Air Room Air 05/27/18 23:31 05/28/18 00:01 05/28/18 00:31 Temperature Temperature Source Sepsis Recent Fever Within 48 Hours Sepsis New/Unexplained Change in Mental Status Sepsis Action Taken by Nursing Pulse Rate 85 86 86 Pulse Rate [Left Finger] Respiratory Rate 19 14 20 Respiratory Effort / Characteristics Respiratory Depth Blood Pressure 170/71 H 169/84 H 175/75 H Blood Pressure [Left Arm] Blood Pressure Mean 104 112 108 Blood Pressure Mean [Left Arm] Pulse Oximetry 98 95 95 Oxygen Delivery Method Room Air Room Air Room Air 05/28/18 01:01 05/28/18 01:31 05/28/18 02:01 Temperature Temperature Source Sepsis Recent Fever Within 48 Hours Sepsis New/Unexplained Change in Mental Status Sepsis Action Taken by Nursing Pulse Rate 85 79 81 Pulse Rate [Left Finger] Respiratory Rate 19 17 23 Respiratory Effort / Characteristics Respiratory Depth Blood Pressure 174/89 H 163/72 H 168/81 H Blood Pressure [Left Arm] Blood Pressure Mean 117 102 110 Blood Pressure Mean [Left Arm] Pulse Oximetry 93 95 94 Oxygen Delivery Method Room Air Room Air Room Air 05/28/18 02:42 Temperature Temperature Source Sepsis Recent Fever Within 48 Hours Sepsis New/Unexplained Change in Mental Status Sepsis Action Taken by Nursing Pulse Rate Pulse Rate [Left Finger] 83 Respiratory Rate 20 Respiratory Effort / Characteristics Non-Labored Spontaneous Respiratory Depth Normal Blood Pressure Blood Pressure [Left Arm] 173/87 H Blood Pressure Mean Blood Pressure Mean [Left Arm] 115 Pulse Oximetry 99 Oxygen Delivery Method Room Air GENERAL: Uncomfortable in appearance, very thin in appearance, wearing glasses. EYE EXAM: Normal conjunctiva. PERRL, no anisocoria and EOM's grossly intact w/o pain. OROPHARYNX: No exudate, posterior pharynx is clear, no tonsillar/uvular deviation or swelling. NECK: Supple, no nuchal rigidity, no adenopathy, non-tender. No signs of meningismus. LUNGS: Clear to auscultation bilaterally. Normal chest wall mechanics. HEART: NSR, no MRG. ABDOMEN: Abdomen soft, mild distention, mild diffuse abdominal discomfort, normo -active bowel sounds, no masses, no rebound or guarding. BACK: No CVA TTP. SKIN: No rashes and no bruising. UPPER EXTREMITIES: Upper extremities are grossly normal. LOWER EXTREMITIES: No pitting edema. No calf pain. NEURO EXAM: Cranial nerves II-XII grossly intact, normal speech, moves all 4 extremities on command w/o issue. Course 2221: Past medical records reviewed. The patient was evaluated in room C10, and a complete history and physical examination were performed. 0056: I reevaluated the patient and discussed the findings with her. She verbalized agreement to a hospitalist evaluation and the treatment plan. The patient will be evaluated for further management and care. 0150: I reviewed the patient's case with Dr. Myers, [facility] Hospitalist. He will evaluate the patient for further management. Administered Medications Sodium Chloride (Nss) 500 mls @ 80 mls/hr IV .Q6H15M WANDA Stop: 06/27/18 00:59 Last Admin: 05/28/18 01:04 Dose: 80 mls/hr Ioversol (Optiray 320 100ml) 91 ml IV ONCE PRN PRN Reason: Interaction Checking Stop: 05/31/18 23:17 Last Admin: 05/27/18 23:19 Dose: 1 ml Discontinued Medications Sodium Chloride (Nss 1000ml) 1,000 mls @ 999 mls/hr IV .Q1H1M WANDA Stop: 05/27/18 23:30 Last Infusion: 05/28/18 00:44 Dose: 0 mls/hr Admin: 05/27/18 23:05 Dose: 999 mls/hr Morphine Sulfate (Morphine Sulfate) 4 mg IV NOW STA Stop: 05/27/18 22:23 Last Admin: 05/27/18 23:05 Dose: 4 mg Morphine Sulfate (Morphine Sulfate) 2 mg IV NOW STA Stop: 05/28/18 00:58 Last Admin: 05/28/18 01:04 Dose: 2 mg Ondansetron HCl (Zofran) 4 mg IV NOW STA Stop: 05/27/18 22:23 Last Admin: 05/27/18 23:05 Dose: 4 mg Ondansetron HCl (Zofran) 4 mg IV NOW STA Stop: 05/28/18 00:57 Last Admin: 05/28/18 01:04 Dose: 4 mg Medical Decision Making Medical Records Attestation: I reviewed the patient's medical records. Home Medications Current Medication List: was personally reviewed by me Laboratory Data Attestation: I reviewed the patient's lab results. Result diagrams: 05/27/18 22:55 05/27/18 22:55 Lab Results 05/27/18 05/27/18 05/27/18 Range/Units 22:55 22:55 23:00 WBC 16.59 H (4.8-10.8) K/uL RBC 4.15 L (4.2-5.4) M/uL Hgb 12.7 (12.0-16.0) g/dL POC Hgb (12.0-16.0) g/dl Hct 38.3 (37-47) % POC Hct (37-47) % MCV 92.3 (80-100) fL MCH 30.6 (25-34) pg MCHC 33.2 (32-36) g/dL RDW Std Deviation 48.0 H (36.4-46.3) fL RDW Coeff of Adeline 14.3 (11.5-14.5) % Plt Count 267 (130-400) K/uL MPV 10.2 (7.4-10.4) fL Immature Gran % (Auto) 0.4 % Neut % (Auto) 83.2 % Lymph % (Auto) 12.4 % [place] % (Auto) 3.6 % Eos % (Auto) 0.3 % Baso % (Auto) 0.1 % Immature Gran # (Auto) 0.06 H (0.00-0.02) K/uL Neut # (Auto) 13.81 H (1.4-6.5) K/uL Lymph # (Auto) 2.06 (1.2-3.4) K/uL [place] # (Auto) 0.60 H (0.11-0.59) K/uL Eos # (Auto) 0.05 (0-0.5) K/uL Baso # (Auto) 0.01 (0-0.2) K/uL POC Sodium (135-144) mEq/L Sodium 128 L (136-145) mmol/L POC Potassium (3.3-5.0) mEq/L Potassium 4.3 (3.5-5.1) mmol/L POC Chloride (101-112) mEq/L Chloride 92 L (98-107) mmol/L Carbon Dioxide 24 (21-32) mmol/L POC Total CO2 (24-31) mEq/l Anion Gap 12.0 H (3-11) POC Anion Gap (16-25) mmol/L POC BUN (7-18) mg/dl BUN 22 H (7-18) mg/dl Creatinine 1.15 (0.6-1.2) mg/dl POC Creatinine (0.6-1.3) mg/dl Est Cr Clr Drug Dosing 28.2 ml/min Est GFR ( Amer) 51.7 Est GFR (Non-Af Amer) 44.6 BUN/Creatinine Ratio 18.9 (10-20) Glucose 107 H (70-99) mg/dl POC Glucose (other) (70-99) mg/dl Calcium 9.9 (8.5-10.1) mg/dl POC Ioniz Calcium Maddy (1.12-1.32) mmol/l Total Bilirubin 0.5 (0.2-1) mg/dl AST 25 (15-37) U/L ALT 19 (12-78) U/L Alkaline Phosphatase 72 (45-117) U/L Total Protein 7.9 (6.4-8.2) gm/dl Albumin 3.6 (3.4-5.0) gm/dl Globulin 4.3 H (2.5-4.0) gm/dl Albumin/Globulin Ratio 0.8 L (0.9-2) Lipase 298 (73-393) U/L Urine Color Yellow Urine Appearance Clear (Clear) Urine pH 8.5 H (4.5-7.5) Ur Specific [place] 1.010 (1.000-1.030) Urine Protein Negative (Negative) Urine Glucose (UA) Negative (Negative) Urine Ketones 1+ H (Negative) Urine Blood Negative (Negative) Urine Nitrite Negative (Negative) Urine Bilirubin Negative (Negative) Urine Urobilinogen Negative (Negative) Ur Leukocyte Esterase Trace H (Negative) Urine WBC (Auto) 1-5 (0-5) /hpf Urine RBC (Auto) 0-4 (0-4) /hpf U Hyaline Cast (Auto) 1-5 (0-5) /lpf U Epithel Cells (Auto) 10-20 H (0-5) /lpf Urine Bacteria (Auto) Negative (Negative) 05/27/18 Range/Units 23:08 WBC (4.8-10.8) K/uL RBC (4.2-5.4) M/uL Hgb (12.0-16.0) g/dL POC Hgb 13.6 (12.0-16.0) g/dl Hct (37-47) % POC Hct 40 (37-47) % MCV (80-100) fL MCH (25-34) pg MCHC (32-36) g/dL RDW Std Deviation (36.4-46.3) fL RDW Coeff of Adeline (11.5-14.5) % Plt Count (130-400) K/uL MPV (7.4-10.4) fL Immature Gran % (Auto) % Neut % (Auto) % Lymph % (Auto) % [place] % (Auto) % Eos % (Auto) % Baso % (Auto) % Immature Gran # (Auto) (0.00-0.02) K/uL Neut # (Auto) (1.4-6.5) K/uL Lymph # (Auto) (1.2-3.4) K/uL [place] # (Auto) (0.11-0.59) K/uL Eos # (Auto) (0-0.5) K/uL Baso # (Auto) (0-0.2) K/uL POC Sodium 130 L (135-144) mEq/L Sodium (136-145) mmol/L POC Potassium 4.3 (3.3-5.0) mEq/L Potassium (3.5-5.1) mmol/L POC Chloride 94 L (101-112) mEq/L Chloride (98-107) mmol/L Carbon Dioxide (21-32) mmol/L POC Total CO2 25 (24-31) mEq/l Anion Gap (3-11) POC Anion Gap 16.0 (16-25) mmol/L POC BUN 22 H (7-18) mg/dl BUN (7-18) mg/dl Creatinine (0.6-1.2) mg/dl POC Creatinine 1.0 (0.6-1.3) mg/dl Est Cr Clr Drug Dosing ml/min Est GFR ( Amer) Est GFR (Non-Af Amer) BUN/Creatinine Ratio (10-20) Glucose (70-99) mg/dl POC Glucose (other) 111 H (70-99) mg/dl Calcium (8.5-10.1) mg/dl POC Ioniz Calcium Maddy 1.06 L (1.12-1.32) mmol/l Total Bilirubin (0.2-1) mg/dl AST (15-37) U/L ALT (12-78) U/L Alkaline Phosphatase (45-117) U/L Total Protein (6.4-8.2) gm/dl Albumin (3.4-5.0) gm/dl Globulin (2.5-4.0) gm/dl Albumin/Globulin Ratio (0.9-2) Lipase (73-393) U/L Urine Color Urine Appearance (Clear) Urine pH (4.5-7.5) Ur Specific [place] (1.000-1.030) Urine Protein (Negative) Urine Glucose (UA) (Negative) Urine Ketones (Negative) Urine Blood (Negative) Urine Nitrite (Negative) Urine Bilirubin (Negative) Urine Urobilinogen (Negative) Ur Leukocyte Esterase (Negative) Urine WBC (Auto) (0-5) /hpf Urine RBC (Auto) (0-4) /hpf U Hyaline Cast (Auto) (0-5) /lpf U Epithel Cells (Auto) (0-5) /lpf Urine Bacteria (Auto) (Negative) Imaging Data Radiologist's Impression: Radiology results as stated below per my review and the [facility] radiologist's interpretation: CT ABDOMEN & PELVIS With Contrast:Comparison with CT from07/31/17. Distended loops of small bowel with air-fluid levels. Differential includes developing small bowel obstruction versus gastroenteritis. No bowel wall thickening. Small amount of free fluid in the pelvis maybe related. No colitis, appendicitis or diverticulitis. Bilateral renal scarring. No definite obstructive uropathy. Pancreas is unremarkable. Moderate size pericardial effusion measuring up to 14 mmposteriorlyalong the right side of the heart (increased from9 mmpreviously). Airspace disease at the right middle lobe. Correlate clinicallyto exclude pneumonia. Nodular infectious foci at both lower lobes. Radiologist: Nato Powell M.D. Study ready at 23:29 and initial results transmitted at 23:45 Critical Value Communications Clear Time Type Notes 05/27/18 23:53 Call Doctor Regarding Above results, called Dr. Siddiqui on 05/27 23:50 (- 05:00) ECG Data Attestation: I personally reviewed and interpreted this ECG as follows: Indication: abdominal pain Rate (beats per minute): 79 Rhythm: normal sinus Findings: + other (Normal intervals and axis) and + T-wave inversion (lead II) Comparison ECG Date: from (07/31/17) Change: the following changes noted Additional Comments: TWI is new Blood Pressure Blood Pressure Findings: Elevated blood pressure Blood Pressure Disposition: further management by hospitalist MDM Narrative The patient is an 82 y/o white female w/ PMHx of HLD, appendectomy who presents to the ED w/ CC of constant, moderate, lower abdominal pain beginning yesterday afternoon. Differential diagnoses includes but is not limited to gastritis, peptic ulcer disease, GERD, gallbladder disease, pancreatitis, small bowel obstruction, acute coronary syndrome, pericarditis, ischemic bowel, irritable bowel disease, irritable bowel syndrome, appendicitis, diverticulitis, malignancy, hernia, urinary tract infection, torsion, perforation, trauma, infectious. Patient was seen and evaluated the bedside. The patient was complaining of severe diffuse abdominal discomfort. Patient states that she has had a prior appendectomy but still has a gallbladder. Patient states that she did have a bowel movement yesterday. The patient did a blood work completed along with a CT of the abdomen pelvis. Patient's blood work showed a mild white count of 16, 000. Patient's sodium was 128. This is somewhat new compared to prior. Patient's most recent sodium was 138. This may be secondary to her vomiting. The patient was given IV fluids. Patient's creatinine is normal. Patient's LFTs and lipase are unremarkable. Patient's urinalysis does not show evidence of infection. CT was read as possible beginning of small bowel obstruction versus gastroenteritis. The patient was also noted to have an increase in the patient's pericardial effusion. I did perform a bedside echo on the patient. The patient did have a small pericardial effusion but there is no evidence of tamponade in both parasternal long as well as subxiphoid views. The patient was trialed with a little bit of by mouth gerson tammie. Upon doing this the patient did have worsening pain and nausea. Given this plan to treat conservatively. The patient does not require an NG tube. The patient does not have any active vomiting. The patient was made n.p.o. and started on maintenance IV fluids. The patient was given additional pain and nausea medication. I did speak with the on-call hospitalist who agreed to further evaluate treat the patient. The patient was admitted to the medicine service. Impression & Plan SBO (small bowel obstruction), Nausea & vomiting, Acute hyponatremia Discharge Plan Visit Data Chief Complaint: Abdominal Pain Stated Complaint: AB PAIN, NAUSEA, VOMITING ED Provider: Jai Siddiqui Discharge Problem: SBO (small bowel obstruction), Nausea & vomiting, Acute hyponatremia Patient Disposition: Being Evaluated by Hospitalist Forms Stand Alone Forms: My [facility] Prescriptions Prescriptions: No Action raloxifene [Evista] 60 mg tablet 60 mg PO DAILY RF: 0 celecoxib [Celebrex] 100 mg capsule 100 mg PO DAILY PRN (Reason: Pain) RF: 0 mometasone [Asmanex Twisthaler] 110 mcg (30 doses) aerosol powdr breath activated 1 puff Inhalation DAILY RF: 0 aspirin 81 mg Tablet,Delayed Release (Dr/Ec) 81 mg PO 2XWK RF: 0 multivitamin [Multiple Vitamins] Tablet 1 tab PO DAILY RF: 0 simvastatin 10 mg tablet 10 mg PO HS RF: 0 metoprolol succinate [Toprol XL] 25 mg tablet extended release 24 hr 12.5 mg PO TID RF: 0 lidocaine [Lidoderm] 5 % Adhesive Patch,Medicated 1 patch TOPICAL DAILY PRN (Reason: Pain) RF: 0 albuterol sulfate 90 mcg/actuation Hfa Aerosol Inhaler 2 puff INHALATION Q6H PRN (Reason: Shortness Of Breath Or Wheezing) RF: 0 Caltrate 600 + D 2 tab PO DAILY RF: 0 Referrals Referrals: Kuldip Mckay MD [Primary Care Provider] - The scribe's documentation has been prepared under my direction and personally reviewed by me in its entirety. I confirm that the note above accurately reflects all work, treatment, procedures, and medical decision making performed by me.
--- NOTE | 2018-05-28 03:10 | History & Physical Report ---
Date of Service May 28, 2018 Assessment & Plan (1) Abdominal pain: This is a pleasant 82-year-old female with past medical history of right femoral hernia, Weston-Danlos, rheumatoid arthritis, takotsubo cardiomyopathy, melanoma of left lower extremity, and asthma who presents with acute onset abdominal pain earlier this afternoon. Patient describes having had a normal bowel movement, perhaps smaller than usual, yesterday morning which was nonbloody and formed. Had a late breakfast as well as a lunch. She states later in the afternoon she began to feel progressive abdominal pain in her lower abdomen that progressively got more intense and traveled to her left upper abdomen and left lower abdomen. She spoke with her son who is a pathologist and he recommended she be seen. She endorses nausea and vomiting today as well. ED course: Her CAT scan shows dilated small loops of bowel with air-fluid levels concerning for developing small bowel obstruction versus gastroenteritis. Hyponatremia 128, leukocytosis WBC 16,000. Afebrile. Hypertensive. She has been treated with morphine, fluids and Zofran. Her pain still rates 8 out of 10. Abdominal pain -CAT scan concerning for developing small bowel obstruction versus gastroenteritis -Patient's pain is primarily left-sided although she does have a history of right femoral inguinal hernia which has required repair about 20 years ago. She is followed by Dr. Perez for this Plan -Nonurgent consult Dr. Perez to evaluate -Check lactate -N.p.o. -Maintenance fluids -Advance diet as tolerated pending clinical progress FEN/GI: Normal saline at 80 mL/h DVT ppx: lovenox q24h CODE STATUS: FULL - confirmed with pt DISPO: Med/surg Other ongoing medical problems: Takotsubo CM -Hold home aspirin while n.p.o., normally takes it twice weekly. Hypertension -Hold home p.o. Toprol-XL 12.5 3 times daily while n.p.o. -Replace with IV Lopressor 5 mg every 6 hours Hyperlipidemia -Hold home statin while n.p.o. Arthritis -Hold home Celebrex while n.p.o. 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 Mckay -plan for follow-up chest CT to reevaluate spiculated lesion in the left lung as of January 2018. -Continue inhalers Severe ALPA -CPAP as needed (2) Nausea & vomiting: (3) Acute hyponatremia: (4) HLD (hyperlipidemia): (5) History of appendectomy: (6) Femoral hernia of right side: History of Present Illness Chief Complaint: Abdominal pain Primary Care Provider: Kuldip Mckay MD This is a pleasant 82-year-old female with past medical history of right femoral hernia, Weston-Danlos, juvenile rheumatoid arthritis, takotsubo cardiomyopathy, melanoma of left lower extremity, and asthma who presents with acute onset abdominal pain earlier this afternoon. Patient describes having had a normal bowel movement, perhaps smaller than usual, yesterday morning which was nonbloody and formed. Had a late breakfast as well as a lunch. She states later in the afternoon she began to feel progressive abdominal pain in her lower abdomen that progressively got more intense and traveled to her left upper abdomen and left lower abdomen. She spoke with her son who is a pathologist and he recommended she be seen. She endorses nausea and vomiting today as well. ED course: Her CAT scan shows dilated small loops of bowel with air-fluid levels concerning for developing small bowel obstruction versus gastroenteritis. Hyponatremia 128, leukocytosis WBC 16,000. Afebrile. Hypertensive. She has been treated with morphine, fluids and Zofran. Her pain still rates 8 out of 10. Allergies Allergy/AdvReac Type Severity Reaction Status Date / Time meperidine Allergy Mild RESP ARREST Verified 05/28/18 01:40 midazolam Allergy Mild RESP ARREST Verified 05/28/18 01:40 amoxicillin Allergy Unknown FROM Verified 05/28/18 01:40 AUGMENTIN clavulanic acid Allergy Unknown Unknown Verified 05/28/18 01:40 codeine Allergy Unknown Unknown Verified 05/28/18 01:40 Penicillins Allergy Unknown Unknown Verified 05/28/18 01:40 ibuprofen AdvReac Mild UPSETS HER Verified 05/28/18 01:40 STOMACH Home Medications Home Medications Medication Instructions Recorded Confirmed Type Caltrate 600 + D 2 tab PO DAILY 05/28/18 05/28/18 History albuterol sulfate 2 puff INHALATION Q6H PRN 05/28/18 05/28/18 History aspirin 81 mg PO 2XWK 05/28/18 05/28/18 History celecoxib [Celebrex] 100 mg PO DAILY PRN 05/28/18 05/28/18 History lidocaine [Lidoderm] 1 patch TOPICAL DAILY PRN 05/28/18 05/28/18 History metoprolol succinate [Toprol XL] 12.5 mg PO TID 05/28/18 05/28/18 History mometasone [Asmanex Twisthaler] 1 puff INHALATION DAILY 05/28/18 05/28/18 History multivitamin [Multiple Vitamins] 1 tab PO DAILY 05/28/18 05/28/18 History raloxifene [Evista] 60 mg PO DAILY 05/28/18 05/28/18 History simvastatin 10 mg PO HS 05/28/18 05/28/18 History Past Med/Surg History Medical History HTN (hypertension) (Chronic) Surgical History History of appendectomy (Resolved) Family History Other Family history non-contributory Social History Current Living Situation: Alone Other Information That Helps Us Care for You: 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 Endorses vomiting earlier today. Endorses abdominal pain as above. Last BM was this morning. No dysuria.) Physical Exam 2 Vital Signs (Past 24 Hours): Last Vital Signs Temp 36.6 C 05/27/18 22:32 Pulse 83 05/28/18 02:42 Resp 20 05/28/18 02:42 BP 173/87 H 05/28/18 02:42 Pulse Ox 99 05/28/18 02:42 Physical Exam: Vitals noted as above and within normal limits. GENERAL: Awake, alert, well-appearing, in no distress. Pt is very thin. HENT: Normocephalic, atraumatic. EYES: Normal conjunctiva. Sclera non-icteric. EOMI. NECK: Supple. Full range of motion. no JVD RESPIRATORY: Clear to auscultation. CARDIAC: Regular rate, normal rhythm. Extremities warm and well perfused. Pulses equal. ABDOMEN: Soft, non-distended. Moderate tenderness to palpation in LL/LUQ. No rebound or guarding. No masses. Bowel sounds are hypoactive. LOWER EXTREMITIES: Calves are equal size bilaterally and non-tender. No edema. No discoloration. NEURO: No gross focal motor deficits noted. SKIN: Rash not present. No jaundice noted. Results & Data Laboratory Results 05/27/18 05/27/18 05/27/18 Range/Units 23:08 23:00 22:55 WBC (4.8-10.8) K/uL RBC (4.2-5.4) M/uL Hgb (12.0-16.0) g/dL POC Hgb 13.6 (12.0-16.0) g/dl Hct (37-47) % POC Hct 40 (37-47) % MCV (80-100) fL MCH (25-34) pg MCHC (32-36) g/dL RDW Std Deviation (36.4-46.3) fL RDW Coeff of Adeline (11.5-14.5) % Plt Count (130-400) K/uL MPV (7.4-10.4) fL Immature Gran % (Auto) % Neut % (Auto) % Lymph % (Auto) % [place] % (Auto) % Eos % (Auto) % Baso % (Auto) % Immature Gran # (Auto) (0.00-0.02) K/uL Neut # (Auto) (1.4-6.5) K/uL Lymph # (Auto) (1.2-3.4) K/uL [place] # (Auto) (0.11-0.59) K/uL Eos # (Auto) (0-0.5) K/uL Baso # (Auto) (0-0.2) K/uL POC Sodium 130 L (135-144) mEq/L Sodium 128 L (136-145) mmol/L POC Potassium 4.3 (3.3-5.0) mEq/L Potassium 4.3 (3.5-5.1) mmol/L POC Chloride 94 L (101-112) mEq/L Chloride 92 L (98-107) mmol/L Carbon Dioxide 24 (21-32) mmol/L POC Total CO2 25 (24-31) mEq/l Anion Gap 12.0 H (3-11) POC Anion Gap 16.0 (16-25) mmol/L POC BUN 22 H (7-18) mg/dl BUN 22 H (7-18) mg/dl Creatinine 1.15 (0.6-1.2) mg/dl POC Creatinine 1.0 (0.6-1.3) mg/dl Est Cr Clr Drug Dosing 28.2 ml/min Est GFR ( Amer) 51.7 Est GFR (Non-Af Amer) 44.6 BUN/Creatinine Ratio 18.9 (10-20) Glucose 107 H (70-99) mg/dl POC Glucose (other) 111 H (70-99) mg/dl Calcium 9.9 (8.5-10.1) mg/dl POC Ioniz Calcium Maddy 1.06 L (1.12-1.32) mmol/l Total Bilirubin 0.5 (0.2-1) mg/dl AST 25 (15-37) U/L ALT 19 (12-78) U/L Alkaline Phosphatase 72 (45-117) U/L Total Protein 7.9 (6.4-8.2) gm/dl Albumin 3.6 (3.4-5.0) gm/dl Globulin 4.3 H (2.5-4.0) gm/dl Albumin/Globulin Ratio 0.8 L (0.9-2) Lipase 298 (73-393) U/L Urine Color Yellow Urine Appearance Clear (Clear) Urine pH 8.5 H (4.5-7.5) Ur Specific [place] 1.010 (1.000-1.030) Urine Protein Negative (Negative) Urine Glucose (UA) Negative (Negative) Urine Ketones 1+ H (Negative) Urine Blood Negative (Negative) Urine Nitrite Negative (Negative) Urine Bilirubin Negative (Negative) Urine Urobilinogen Negative (Negative) Ur Leukocyte Esterase Trace H (Negative) Urine WBC (Auto) 1-5 (0-5) /hpf Urine RBC (Auto) 0-4 (0-4) /hpf U Hyaline Cast (Auto) 1-5 (0-5) /lpf U Epithel Cells (Auto) 10-20 H (0-5) /lpf Urine Bacteria (Auto) Negative (Negative) 05/27/18 Range/Units 22:55 WBC 16.59 H (4.8-10.8) K/uL RBC 4.15 L (4.2-5.4) M/uL Hgb 12.7 (12.0-16.0) g/dL POC Hgb (12.0-16.0) g/dl Hct 38.3 (37-47) % POC Hct (37-47) % MCV 92.3 (80-100) fL MCH 30.6 (25-34) pg MCHC 33.2 (32-36) g/dL RDW Std Deviation 48.0 H (36.4-46.3) fL RDW Coeff of Adeline 14.3 (11.5-14.5) % Plt Count 267 (130-400) K/uL MPV 10.2 (7.4-10.4) fL Immature Gran % (Auto) 0.4 % Neut % (Auto) 83.2 % Lymph % (Auto) 12.4 % [place] % (Auto) 3.6 % Eos % (Auto) 0.3 % Baso % (Auto) 0.1 % Immature Gran # (Auto) 0.06 H (0.00-0.02) K/uL Neut # (Auto) 13.81 H (1.4-6.5) K/uL Lymph # (Auto) 2.06 (1.2-3.4) K/uL [place] # (Auto) 0.60 H (0.11-0.59) K/uL Eos # (Auto) 0.05 (0-0.5) K/uL Baso # (Auto) 0.01 (0-0.2) K/uL POC Sodium (135-144) mEq/L Sodium (136-145) mmol/L POC Potassium (3.3-5.0) mEq/L Potassium (3.5-5.1) mmol/L POC Chloride (101-112) mEq/L Chloride (98-107) mmol/L Carbon Dioxide (21-32) mmol/L POC Total CO2 (24-31) mEq/l Anion Gap (3-11) POC Anion Gap (16-25) mmol/L POC BUN (7-18) mg/dl BUN (7-18) mg/dl Creatinine (0.6-1.2) mg/dl POC Creatinine (0.6-1.3) mg/dl Est Cr Clr Drug Dosing ml/min Est GFR ( Amer) Est GFR (Non-Af Amer) BUN/Creatinine Ratio (10-20) Glucose (70-99) mg/dl POC Glucose (other) (70-99) mg/dl Calcium (8.5-10.1) mg/dl POC Ioniz Calcium Maddy (1.12-1.32) mmol/l Total Bilirubin (0.2-1) mg/dl AST (15-37) U/L ALT (12-78) U/L Alkaline Phosphatase (45-117) U/L Total Protein (6.4-8.2) gm/dl Albumin (3.4-5.0) gm/dl Globulin (2.5-4.0) gm/dl Albumin/Globulin Ratio (0.9-2) Lipase (73-393) U/L Urine Color Urine Appearance (Clear) Urine pH (4.5-7.5) Ur Specific [place] (1.000-1.030) Urine Protein (Negative) Urine Glucose (UA) (Negative) Urine Ketones (Negative) Urine Blood (Negative) Urine Nitrite (Negative) Urine Bilirubin (Negative) Urine Urobilinogen (Negative) Ur Leukocyte Esterase (Negative) Urine WBC (Auto) (0-5) /hpf Urine RBC (Auto) (0-4) /hpf U Hyaline Cast (Auto) (0-5) /lpf U Epithel Cells (Auto) (0-5) /lpf Urine Bacteria (Auto) (Negative) Supervising Physician Co-Signing Physician Notes Pt seen examined following resident MD Eladio Cheek. Orders and plan of care formulated with resident. 82 y/o F Hx RA, right femoral hernia, Weston-Danlos, takotsubo cardiomyopathy, melanoma LLE. Presenting with severe lower abdominal pain, nausea and vomiting. A CT obtained in the ER is consistent with an SBO. The potential location of the transition point does not appear related to her femoral hernia. A lactic is negative. OE: Pleasant, thin, elderly F no acute distress although she is uncomfortable. S1,2 R CTAB Diffusely tender lower abdomen which is soft, BS + No CCE No deficits No rashes or ulcers P: NPO, pain control, antiemetics, IVF, surgery consult - follows with Dr Mora We can continue her inhaler as needed, aside form this, semaj of her current medications are immediately essential Resident Activity Tracking Resident Involvement: Resident Care Provided Care Provided: Adult [facility] Medicine _ (1) Nausea & vomiting Vomiting Intractability: non-intractable Vomiting type: unspecified Qualified Code(s): R11.2 - Nausea with vomiting, unspecified
[2018-05-28] MEDS ORDERED: SODIUM CHLORIDE 0.9% 1000ML 1,000 ML IV SCH (03:37)
[2018-05-28] MEDS ORDERED: ALBUTEROL HFA 8 GM INHALER INH PRN (04:28)
[2018-05-28] MEDS ORDERED: LIDOCAINE 5% 1 PATCH TD PRN (04:28)
[2018-05-28] MEDS ORDERED: METOPROLOL TARTRATE 1 MG/ML VIAL IV SCH (06:00)
[2018-05-28] MEDS ORDERED: ONDANSETRON INJ 2 MG/ML 2 ML VIAL IV ONE (06:41)
[2018-05-28] MEDS: HYDROmorphone INJ 1 MG/ML SYRINGE IV PRN ×2 (06:59→14:03)
[2018-05-28] MEDS: HydrALAZINE HCL 20 MG/ML VIAL IV SCH ×3 (07:04→22:19)
[2018-05-28 07:07] LABS: INR 1.1 (0.9-1.1); Prothrombin Time 10.9 Seconds (9.0-12.0)
--- NOTE | 2018-05-28 07:10 | CT Scan Report ---
ABDOMEN AND PELVIS CT WITH IV CONTRAST CT DOSE: 226.39 mGy.cm HISTORY: Generalized abdominal pain. TECHNIQUE: Multiaxial CT images of the abdomen and pelvis were performed following the use of intrave nous contrast. A dose lowering technique was utilized adhering to the principles of ALARA. COMPARISON STUDY: Abdomen and pelvis CT 07/31/2017. FINDINGS: There is again noted a pectus excavatum deformity. Tree-in-bud nodular opacities seen withi n the lung bases and patchy area of consolidation within the right middle lobe are again noted. There are suture material within the right middle lobe. No pneumoperitoneum. No pneumatosis. The liver, ga llbladder, pancreas, and adrenal glands are unremarkable. There are are a few subcentimeter hypodense lesions within the spleen and kidneys. These are technically too small to characterize. No hydroneph rosis. Bilateral renal scarring is noted. No retroperitoneal lymphadenopathy. The bladder, uterus, bi lateral adnexa are unremarkable. Trace pelvic free fluid. Colonic diverticulosis. No evidence for div erticulitis. The colon is decompressed. Multiple dilated and fluid-filled loops of small bowel are se en throughout the abdomen. There is a chest digit point within a small right femoral hernia containin g a short segment of small bowel. Therefore, this is consistent with a small bowel obstruction. The d istal ileum is decompressed as it exits the right femoral hernia. IMPRESSION: 1. Small bowel obstruction with the transition point located at a right femoral hernia. 2. Patchy densities at the lung bases persist and favor a chronic bronchiolitis. 3. Additional findings as described above. 4. These findings were discussed with Dr. Perez at 6:45 AM on 05/28/2018. Electronically signed by: Roger Selby M.D. 05/28/2018 7:09 AM
[2018-05-28] MEDS ORDERED: CLINDAMYCIN 600 MG in DEXTROSE 5% 50 ML IV SCH (07:15)
--- NOTE | 2018-05-28 07:21 | Surgery Consultation ---
Date of Consultation May 28, 2018 Assessment & Plan (1) SBO (small bowel obstruction): Rt femoral hernia is causing obstruction- needs to be repaired this am- may require small bowel resection . discussed with pts son John (2) Incarcerated femoral hernia: History of Present Illness Reason for Consultation: abd pain, N/V Attending Physician: Valentín Myers MD History of Present Illness pt adm through ER with abd pain, N/V has h/o Rt ing/ femoral hernia- appears on CT that this is cause of obstruction pt describes some pain in Rt groin area Allergies Allergy/AdvReac Type Severity Reaction Status Date / Time meperidine Allergy Mild RESP ARREST Verified 05/28/18 01:40 midazolam Allergy Mild RESP ARREST Verified 05/28/18 01:40 amoxicillin Allergy Unknown FROM Verified 05/28/18 01:40 AUGMENTIN clavulanic acid Allergy Unknown Unknown Verified 05/28/18 01:40 codeine Allergy Unknown Unknown Verified 05/28/18 01:40 Penicillins Allergy Unknown Unknown Verified 05/28/18 01:40 ibuprofen AdvReac Mild UPSETS HER Verified 05/28/18 01:40 STOMACH Home Medications Home Medications Medication Instructions Recorded Confirmed Type Caltrate 600 + D 2 tab PO DAILY 05/28/18 05/28/18 History albuterol sulfate 2 puff INHALATION Q6H PRN 05/28/18 05/28/18 History aspirin 81 mg PO 2XWK 05/28/18 05/28/18 History celecoxib [Celebrex] 100 mg PO DAILY PRN 05/28/18 05/28/18 History lidocaine [Lidoderm] 1 patch TOPICAL DAILY PRN 05/28/18 05/28/18 History metoprolol succinate [Toprol XL] 12.5 mg PO TID 05/28/18 05/28/18 History mometasone [Asmanex Twisthaler] 1 puff INHALATION DAILY 05/28/18 05/28/18 History multivitamin [Multiple Vitamins] 1 tab PO DAILY 05/28/18 05/28/18 History raloxifene [Evista] 60 mg PO DAILY 05/28/18 05/28/18 History simvastatin 10 mg PO HS 05/28/18 05/28/18 History Patient History Medical History HLD (hyperlipidemia) (Chronic) Arrhythmia Asthma Broken heart syndrome COPD (chronic obstructive pulmonary disease) Chest pain Juvenile arthritis Lung nodules Skin cancer (melanoma) Tachycardia Surgical History History of appendectomy (Resolved) Hx of angioplasty Family History Other Family history non-contributory Social History Current Living Situation: Alone Other Information That Helps Us Care for You: 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 Smoking Status: Never smoker Do You Dip or Chew Tobacco: No Second Hand Exposure: No Hx Alcohol Use: No Hx Substance Use: No Beliefs That Will Affect Care: Latter-Day Latter-Day Beliefs: Muslim Preferred Language: Panamanian Communication Ability: Effective Cow Washer Required: No Physical Exam 2 Vital Signs (Past 24 Hours): Last Vital Signs Temp 36.6 C 05/28/18 07:02 Pulse 91 H 05/28/18 07:02 Resp 16 05/28/18 07:02 BP 167/93 H 05/28/18 07:02 Pulse Ox 99 05/28/18 07:02 Constitutional: + thin; no acute distress Neck: trachea midline, no thyromegaly Respiratory: normal respiratory effort; no respiratory distress Cardiovascular: Rate/Rhythm: regular rate and regular rhythm Gastrointestinal (Abdomen): mild distention, some bowel sounds, Rt femoral hernia- reduceable but was incarcerated Skin: no rashes, warm and dry Psychiatric: Orientation: alert Results & Data Diagnostic Findings CT scan reviewed
--- NOTE | 2018-05-28 07:27 | Anesthesiology Consultation ---
Date of Service May 28, 2018 Assessment & Plan Chart Review Chart Review: Acceptable Risk for Surgery Consults Requested none ASA [id number] Proposed Anesthesia Anesthesia Type: General Risk / Benefits Reviewed With: PT / POA / Parent / Guardian, Accepts Plan and Informed Consent Obtained NPO Date Last Intake of Fluids: 05/27/18 Time Last Intake of Fluids: 15:00 Date Last Intake of Solids: 05/27/18 Time Last Intake of Solids: 15:00 History Surgery Operation Date: 05/28/18 14:20 Proposed Procedures p Inguinal/Femoral Open Right Hernia Repair - Tho Perez MD, FACS Operation Date: 05/28/18 14:20 Proposed Procedures p Inguinal/Femoral Open Right Hernia Repair - Tho Perez MD, FACS Height/Weight Height: 5 ft 4 in Weight: 39.5 kg Allergies Allergy/AdvReac Type Severity Reaction Status Date / Time meperidine Allergy Mild RESP ARREST Verified 05/28/18 01:40 midazolam Allergy Mild RESP ARREST Verified 05/28/18 01:40 amoxicillin Allergy Unknown FROM Verified 05/28/18 01:40 AUGMENTIN clavulanic acid Allergy Unknown Unknown Verified 05/28/18 01:40 codeine Allergy Unknown Unknown Verified 05/28/18 01:40 Penicillins Allergy Unknown Unknown Verified 05/28/18 01:40 ibuprofen AdvReac Mild UPSETS HER Verified 05/28/18 01:40 STOMACH Medications Home Medications Medication Instructions Recorded Confirmed Last Taken Caltrate 600 + D 2 tab PO DAILY 05/28/18 05/28/18 Unknown albuterol sulfate 2 puff INHALATION Q6H PRN 05/28/18 05/28/18 Unknown aspirin 81 mg PO 2XWK 05/28/18 05/28/18 Unknown celecoxib [Celebrex] 100 mg PO DAILY PRN 05/28/18 05/28/18 Unknown lidocaine [Lidoderm] 1 patch TOPICAL DAILY PRN 05/28/18 05/28/18 Unknown metoprolol succinate [Toprol XL] 12.5 mg PO TID 05/28/18 05/28/18 Unknown mometasone [Asmanex Twisthaler] 1 puff INHALATION DAILY 05/28/18 05/28/18 Unknown multivitamin [Multiple Vitamins] 1 tab PO DAILY 05/28/18 05/28/18 Unknown raloxifene [Evista] 60 mg PO DAILY 05/28/18 05/28/18 Unknown simvastatin 10 mg PO HS 05/28/18 05/28/18 Unknown Active Medications Generic Name Dose Route Start Last Admin Trade Name Freq PRN Reason Stop Dose Admin Hydralazine HCl 10 mg 05/28/18 07:00 05/28/18 07:04 Hydralazine Hcl IV 06/27/18 06:59 10 mg Q8H WANDA Administration Hydromorphone HCl 1 mg 05/28/18 03:37 05/28/18 06:59 Dilaudid IV 06/11/18 03:36 1 mg Q2H PRN Administration Pain Sodium Chloride 1,000 mls @ 80 mls/hr 05/28/18 03:37 05/28/18 07:16 Nss 1000ml IV 06/27/18 03:36 80 mls/hr .[id number] WANDA Infusion Ioversol 91 ml 05/27/18 23:18 05/27/18 23:19 Optiray 320 100ml IV 05/31/18 23:17 1 ml ONCE PRN Administration Interaction Checking Miscellaneous 1 ea 05/28/18 08:00 05/28/18 07:58 Order Awaiting Action N/A 06/27/18 07:59 Not Given QS WANDA Past Medical History Medical History HLD (hyperlipidemia) (Chronic) Arrhythmia Asthma Broken heart syndrome COPD (chronic obstructive pulmonary disease) Chest pain Hyponatremia Juvenile arthritis Lung nodules Skin cancer (melanoma) Tachycardia Past Family History Family History Other Family history non-contributory Past Surgical History Surgical History History of appendectomy (Resolved) Hx of angioplasty Social History Smoking Status: Never smoker Do You Dip or Chew Tobacco: No Hx Alcohol Use: No Hx Substance Use: No Physical Exam Vital Signs Last Vital Signs Temp 97.9 F 05/28/18 07:02 Pulse 91 H 05/28/18 07:02 Resp 16 05/28/18 07:02 BP 167/93 H 05/28/18 07:02 Pulse Ox 99 05/28/18 07:02 Constitutional + altered mental status (2/2 recent dilaudid dose) ENMT Mouth: + small oral opening Thyromental Distance: < 3.5 Finger Breadths Mallampati Class: IV Neck normal visual inspection Respiratory normal respiratory effort Auscultation: lungs clear to auscultation bilaterally Cardiovascular Rate/Rhythm: regular rate and regular rhythm Heart Sounds: no murmur Testing Electrocardiogram Date: 05/27/18 Findings: + NSR @ (97 bpm) Left atrial enlargement Anteroseptal infarct Echocardiogram Date: 08/01/17 1. Normal left ventricular size and systolic function. EF 55-60%. No regional wall motion abnormalities. No left ventricular hypertrophy. Type 1 diastolic dysfunction. 2. Trace aortic regurgitation. 3. There is moderate tricuspid regurgitation. 4. Small pericardial effusion without echocardiographic evidence of tamponade physiology. 5. Normal estimated right ventricular systolic pressure; 32mmHg. 6. No significant change from prior study on 11/03/2009. Laboratory Results 05/27/18 22:55 05/27/18 22:55 PT 10.9 Seconds (9.0-12.0) 05/28/18 06:23 INR 1.1 (0.9-1.1) 05/28/18 06:23 Urine Color Yellow 05/27/18 23:00 Urine Appearance Clear (Clear) 05/27/18 23:00 Urine pH 8.5 (4.5-7.5) H 05/27/18 23:00 Ur Specific [place] 1.010 (1.000-1.030) 05/27/18 23:00 Urine Protein Negative (Negative) 05/27/18 23:00 Urine Glucose (UA) Negative (Negative) 05/27/18 23:00 Urine Ketones 1+ (Negative) H 05/27/18 23:00 Urine Nitrite Negative (Negative) 05/27/18 23:00 Ur Leukocyte Esterase Trace (Negative) H 05/27/18 23:00 Urine WBC (Auto) 1-5 /hpf (0-5) 05/27/18 23:00 Urine RBC (Auto) 0-4 /hpf (0-4) 05/27/18 23:00 U Hyaline Cast (Auto) 1-5 /lpf (0-5) 05/27/18 23:00 U Epithel Cells (Auto) 10-20 /lpf (0-5) H 05/27/18 23:00 Urine Bacteria (Auto) Negative (Negative) 05/27/18 23:00 05/27/18 23:08 POC Glucose (other) 111 H
[2018-05-28] MEDS ORDERED: ATROPINE SULFATE 0.1 MG/ML 10ML SYR IV PRN (08:09)
[2018-05-28] MEDS ORDERED: ONDANSETRON INJ 2 MG/ML 2 ML VIAL IV PRN ×2 (08:09→10:54)
[2018-05-28] MEDS ORDERED: ePHEDrine sulfate 50 MG/ML AMP IV PRN (08:09)
[2018-05-28] MEDS ORDERED: fentaNYL citrate 100 MCG/2 ML VIAL IV PRN (08:09)
[2018-05-28] MEDS ORDERED: CEFAZOLIN 250 MG/ML 1 GM VIAL ONE (08:39)
[2018-05-28] MEDS ORDERED: LIDOCAINE HCL 1% 20 ML VIAL ONE (08:39)
[2018-05-28] MEDS ORDERED: BUPIVACAINE 0.5 % 5 MG/1 ML MPF 30ML VIAL ONE (08:39)
[2018-05-28] MEDS ORDERED: PROPOFOL IV EMULSION 10 MG/ML 20 ML VIAL IV ONE (09:23)
[2018-05-28] MEDS ORDERED: LIDOCAINE HCL 2% 2 ML VIAL/AMP(20MG/ML) INFIL ONE (09:23)
[2018-05-28] MEDS ORDERED: PHENYLEPHRINE 100MCG/ML 5ML SYR ONE (09:23)
[2018-05-28] MEDS ORDERED: SUCCINYLCHOLINE CHLORIDE 20 MG/ML 10 ML VIAL ONE (09:23)
[2018-05-28] MEDS ORDERED: PHENYLEPHRINE HCL 10 MG/ML VIAL ONE (09:36)
--- NOTE | 2018-05-28 09:54 | Operative Report ---
Post Operative Report Pre & Post Diagnosis Operation Date: 05/28/18 14:20 Pre-Op Diagnosis: Incarcerated Right Femoral Hernia Post-Op Diagnosis: Incarcerated Right Femoral Hernia same Operation Date: 05/28/18 14:20 Pre-Op Diagnosis: Incarcerated Right Femoral Hernia Post-Op Diagnosis: Incarcerated Right Femoral Hernia same Procedure Operation Date: 05/28/18 14:20 Actual Procedures p Open Right Femoral Hernia Repair(Right) - Tho Perez MD, FACS p Inguinal/Femoral Open Right Hernia Repair - Tho Perez MD, FACS Operation Date: 05/28/18 14:20 Actual Procedures p Open Right Femoral Hernia Repair(Right) - Tho Perez MD, FACS p Inguinal/Femoral Open Right Hernia Repair - Tho Perez MD, FACS same Surgeon Tho Perez MD, FACS Compliance Aide Amanuel Soto Estimated Blood Loss 10 Findings Consistent with Post-Op Diagnosis Specimens none Description of Procedure see dictated note I attest to the content of the Intraoperative Record and any orders documented therein. Any exceptions are noted below.
[2018-05-28] MEDS ORDERED: ACETAMINOPHEN 1,000 MG/100 ML VIAL IV ONE (10:04)
[2018-05-28] MEDS ORDERED: TRAMADOL HCL 50 MG TABLET PO PRN (10:54)
[2018-05-28] MEDS ORDERED: MoRPHine SULFATE 2 MG/ML CARP IV PRN (10:54)
[2018-05-28] MEDS: ACETAMINOPHEN 65 ML IV SCH ×2 (10:57→15:41)
--- NOTE | 2018-05-28 11:20 | Anesthesiology Progress Note ---
Date of Service May 28, 2018 Anesthesia Post Procedure Vital Signs Vital Signs: Temp Pulse Pulse Pulse Resp BP BP 05/28/18 10:40 98.2 F 73 13 05/28/18 10:30 69 12 05/28/18 10:20 70 15 05/28/18 10:10 70 13 05/28/18 10:04 98.6 F 69 20 05/28/18 08:08 98.2 F 85 16 05/28/18 07:02 97.9 F 91 H 16 05/28/18 04:37 97.2 F L 83 14 160/72 H 05/28/18 04:10 81 20 138/87 05/28/18 02:42 83 20 173/87 H 05/28/18 02:01 81 23 168/81 H 05/28/18 01:31 79 17 163/72 H 05/28/18 01:01 85 19 174/89 H 05/28/18 00:31 86 20 175/75 H 05/28/18 00:01 86 14 169/84 H 05/27/18 23:31 85 19 170/71 H 05/27/18 22:32 97.9 F 92 H 23 166/109 H 05/27/18 22:31 98 H 28 H 191/84 H BP Pulse Ox 05/28/18 10:40 115/54 L 98 05/28/18 10:30 112/53 L 98 05/28/18 10:20 119/54 L 99 05/28/18 10:10 91/46 L 96 05/28/18 10:04 121/67 96 05/28/18 08:08 153/75 H 94 05/28/18 07:02 167/93 H 99 05/28/18 04:37 95 05/28/18 04:10 95 05/28/18 02:42 99 05/28/18 02:01 94 05/28/18 01:31 95 05/28/18 01:01 93 05/28/18 00:31 95 05/28/18 00:01 95 05/27/18 23:31 98 05/27/18 22:32 100 05/27/18 22:31 100 Pain Intensity Abdomen: Pain Intensity: 2 Notes Mental Status: alert / awake / arousable and participated in evaluation Patient Amnestic to Procedure: Yes Nausea / Vomiting: adequately controlled Pain: adequately controlled Airway Patency, RR, SpO2: stable & adequate BP & HR: stable & adequate Hydration State: stable & adequate Anesthetic Complications: no major complications apparent and Pt Satisfied with anesthetic care
--- NOTE | 2018-05-28 12:08 | Operative Report ---
DATE OF OPERATION: 05/28/2018 NAME OF OPERATION: Open right femoral hernia repair with abdominal exploration. PREOPERATIVE DIAGNOSIS: Incarcerated right femoral hernia. POSTOPERATIVE DIAGNOSIS: Incarcerated right femoral hernia. STAFF SURGEON: Tho Perez MD MANAGER CONTROL: Perry Soto PA-C ANESTHESIA: General. DESCRIPTION OF PROCEDURE: The patient was brought in the operating room and placed on the operating table in supine position. They used the GlideScope to intubate the patient. Her lower abdomen was then prepped and draped in usual fashion. She had a palpable bulge which I felt was the right femoral hernia. Transverse incision was made near the inguinal crease carrying dissection down identifying the hernia sac. The sac was then opened. It did not contain any bowel, but did have some serous fluid. The defect was small, approximately 1 cm. The sac was then closed using 2-0 chromic suture and then reduced and then a mesh plug placed into the defect, secured to surrounding tissue using 2-0 Ethibond suture. At this point, I was somewhat concerned that her small bowel had been incarcerated and obstructing her. I made a small incision above the inguinal ligament, carrying dissection down into the abdomen, identifying the small bowel and then tracing the small bowel to the area of the incarceration. It was viable. There was a mild amount of hyperemic change in the serosa, but no ischemia or infarcted tissue. There was significant serous ascites. Some of this was aspirated. The peritoneum was then reapproximated using 0 chromic suture, then the abdominal wall tissue reapproximated using 0 silk suture and 2-0 Ethibond suture. A 15 round Timur-Ayers drain placed into the wound, secured to the skin using 3-0 nylon suture, then the subcutaneous tissue reapproximated using 2-0 plain suture. Skin reapproximated using 4-0 nylon suture. My ice cream freezer assistant, Austin Soto helped with prepping, draping, repair of the hernia and closure of the wound. I attest to the content of the Intraoperative Record and any orders documented therein. Any exception s are noted below.
[2018-05-28] MEDS: METOPROLOL SUCC 25MG EXT REL TAB PO SCH ×2 (13:29→20:35)
[2018-05-28] MEDS: CEFAZOLIN 1000MG 1,000 MG/7.5 ML SYR IV SCH ×2 (13:29→20:31)
[2018-05-28] MEDS: SODIUM CHLORIDE 0.9% 1000ML 1,000 ML IV SCH (13:30)
[2018-05-28] MEDS: ONDANSETRON INJ 2 MG/ML 2 ML VIAL IV PRN ×2 (14:03→23:19)
[2018-05-28] MEDS: SIMVASTATIN 10 MG TAB PO SCH (20:35)
[2018-05-28] MEDS ORDERED: ENOXAPARIN INJ 40 MG/0.4 ML SYR SQ SCH (21:00)
[2018-05-28] MEDS: MoRPHine SULFATE 4 MG/ML 1 ML CARP\\VIAL ONE (23:31)
[2018-05-29] MEDS ORDERED: Nursing to Pharmacy Communication ONE (00:54)
[2018-05-29] MEDS: MoRPHine SULFATE 4 MG/ML 1 ML CARP\\VIAL ONE (01:35)
[2018-05-29] MEDS: CEFAZOLIN 1000MG 1,000 MG/7.5 ML SYR IV SCH ×3 (03:56→19:47)
[2018-05-29] MEDS: ACETAMINOPHEN 65 ML IV SCH ×3 (03:56→19:54)
[2018-05-29] MEDS: ONDANSETRON INJ 2 MG/ML 2 ML VIAL IV PRN ×4 (04:00→18:01)
[2018-05-29 06:00] LABS: Basophils # (auto) 0.01 K/uL (0-0.2); Basophils % (auto) 0.1 %; Hematocrit (blood only) 34.8 % (37-47); Immature Granulocytes # (auto) 0.09 K/uL (0.00-0.02); Immature Granulocytes % (auto) 0.6 %; Lymphocytes # (auto) 1.01 K/uL (1.2-3.4); Lymphocytes % (auto) 6.5 %; Mean Corpuscular Hgb Conc 31.6 g/dL (32-36); Mean Corpuscular Volume 95.6 fL (80-100); Mean Platelet Volume 10.8 fL (7.4-10.4); Monocytes # (auto) 0.75 K/uL (0.11-0.59); Monocytes % (auto) 4.8 %; Neutrophils # (auto) 13.73 K/uL (1.4-6.5); Platelet Count 204 K/uL (130-400); RDW Standard Deviation 52.5 fL (36.4-46.3); Red Blood Count 3.64 M/uL (4.2-5.4); White Blood Count 15.59 K/uL (4.8-10.8)
--- NOTE | 2018-05-29 06:11 | Progress Note ---
Date of Service May 29, 2018 Assessment & Plan (1) Incarcerated femoral hernia: begin full liquids, cont IV for now po meds as tolerated, palliative care physician 2-3 more days at least Subjective some pain- rec IV meds no emesis good uo, drain- min serous Physical Exam 2 Vital Signs (Past 24 Hours): Last Vital Signs Temp 36.7 C 05/29/18 04:00 Pulse 86 05/29/18 04:00 Resp 16 05/29/18 04:00 BP 117/55 L 05/29/18 04:00 Pulse Ox 92 05/29/18 04:15 abd- much less distended, decreased bowel sounds no acute bleeding
[2018-05-29 06:17] LABS: Albumin Globulin Ratio 0.8 (0.9-2); Albumin Level 2.7 gm/dl (3.4-5.0); BUN Creatinine Ratio 17.2 (10-20); Bilirubin,Total 0.4 mg/dl (0.2-1); Calcium 8.3 mg/dl (8.5-10.1); Creatinine Clr Calc Pharmacy 30.2 ml/min; Est GFR (African American) 68.6; Est GFR (Non-African American) 59.2; Globulin 3.5 gm/dl (2.5-4.0); Magnesium 1.7 mg/dl (1.8-2.4); Phosphorus 3.6 mg/dl (2.5-4.9); Potassium 4.5 mmol/L (3.5-5.1); Total Protein 6.2 gm/dl (6.4-8.2)
[2018-05-29] MEDS: METOPROLOL SUCC 25MG EXT REL TAB PO SCH ×3 (07:17→20:36)
[2018-05-29] MEDS: MULTIVITAMIN TAB PO SCH (07:36)
[2018-05-29] MEDS: ASPIRIN 81 MG ECTAB PO SCH (07:36)
[2018-05-29] MEDS: CALCIUM 600MG + VIT D 400 IU TAB PO SCH (07:36)
[2018-05-29] MEDS: ENOXAPARIN INJ 30 MG/0.3 ML SYR SQ SCH (07:36)
[2018-05-29] MEDS: SODIUM CHLORIDE 0.9% 1000ML 1,000 ML IV SCH (07:37)
[2018-05-29] MEDS ORDERED: MoRPHine SULFATE 4 MG/ML 1 ML CARP\\VIAL ONE ×2 (09:11→13:10)
--- NOTE | 2018-05-29 09:44 | Anesthesiology Progress Note ---
Date of Service May 29, 2018 Anesthesia Post Procedure Vital Signs Vital Signs: Temp Pulse Pulse Resp BP Pulse Ox 05/29/18 07:06 36.7 C 96 H 17 95/51 L 99 05/29/18 06:12 90 108/55 L 05/29/18 04:15 92 05/29/18 04:00 36.7 C 86 16 117/55 L 89 L 05/28/18 23:20 94 H 100/55 L 05/28/18 22:55 36.7 C 89 16 98/53 L 98 05/28/18 22:17 84 121/66 05/28/18 20:33 36.4 C L 80 18 107/53 L 97 05/28/18 20:25 36.4 C L 76 16 115/57 L 98 05/28/18 15:13 36.5 C 74 16 100/52 L 97 05/28/18 13:48 36.3 C L 76 14 142/73 H 99 05/28/18 12:44 36.7 C 80 14 120/69 96 05/28/18 11:48 36.7 C 73 14 122/68 98 05/28/18 11:19 36.6 C 73 14 120/57 L 97 05/28/18 10:50 36.9 C 75 14 121/61 96 05/28/18 10:40 36.8 C 73 13 115/54 L 98 05/28/18 10:30 69 12 112/53 L 98 05/28/18 10:20 70 15 119/54 L 99 05/28/18 10:10 70 13 91/46 L 96 05/28/18 10:04 37.0 C 69 20 121/67 96 Pain Intensity Abdomen: Pain Intensity: 9 Notes Mental Status: alert / awake / arousable and participated in evaluation Patient Amnestic to Procedure: Yes Nausea / Vomiting: see Notes below Pain: adequately controlled Airway Patency, RR, SpO2: stable & adequate BP & HR: stable & adequate Hydration State: stable & adequate Anesthetic Complications: no major complications apparent and Pt Satisfied with anesthetic care
[2018-05-29] MEDS: SIMVASTATIN 10 MG TAB PO SCH (20:37)
--- NOTE | 2018-05-29 23:30 | Hospitalist Progress Note ---
Date of Service May 29, 2018 Assessment & Plan (1) Abdominal pain: This is a pleasant 82-year-old female with past medical history of right femoral hernia, Weston-Danlos, rheumatoid arthritis, takotsubo cardiomyopathy, melanoma of left lower extremity, and asthma who presents with acute onset abdominal pain earlier this afternoon. Patient describes having had a normal bowel movement, perhaps smaller than usual, yesterday morning which was nonbloody and formed. Had a late breakfast as well as a lunch. She states later in the afternoon she began to feel progressive abdominal pain in her lower abdomen that progressively got more intense and traveled to her left upper abdomen and left lower abdomen. She spoke with her son who is a pathologist and he recommended she be seen. She endorses nausea and vomiting today as well. ED course: Her CAT scan shows dilated small loops of bowel with air-fluid levels concerning for developing small bowel obstruction versus gastroenteritis. Hyponatremia 128, leukocytosis WBC 16,000. Afebrile. Hypertensive. She has been treated with morphine, fluids and Zofran. Her pain still rates 8 out of 10. Abdominal pain -CAT scan concerning for developing small bowel obstruction versus gastroenteritis -Patient's pain is primarily left-sided although she does have a history of right femoral inguinal hernia which has required repair about 20 years ago. She is followed by Dr. Perez for this Plan -Non-*urgent consult Dr. Perez to evaluate -Check lactate -N.p.o. -Maintenance fluids -Advance diet as tolerated pending clinical progress FEN/GI: Normal saline at 80 mL/h DVT ppx: lovenox q24h CODE STATUS: FULL - confirmed with pt DISPO: Med/surg Other ongoing medical problems: Takotsubo CM -Hold home aspirin while n.p.o., normally takes it twice weekly. Hypertension -Restarted her home medicine Hyperlipidemia -restarted home medicine. 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 Mckay -plan for follow-up chest CT to reevaluate spiculated lesion in the left lung as of January 2018. -Continue inhalers Severe ALPA -CPAP as needed Severe protein-calorie malnutrition, BMI 14.9 kg/m*m Likely secondary to her primary problem. Will monitor her oral intake. May consider nutritional consult. (2) Nausea & vomiting: (3) Acute hyponatremia: (4) HLD (hyperlipidemia): (5) History of appendectomy: (6) Femoral hernia of right side: Subjective 82 yo female S/P Open right femoral hernia repair with abdominal exploration. Patient reports she still has pain over her incision site. She reports however that her pain has improved. Constitutional: no fever and no sweats Eyes: no blind spots Ear, Nose, Mouth, Throat: no tinnitus Respiratory: no cough Cardiovascular: no chest pain Gastrointestinal: no bloating and no nausea Integumentary: no acne Endocrine: no fatigue Hematologic / Lymphatic: no easy bleeding Physical Exam 2 Vital Signs (Past 24 Hours): Last Vital Signs Temp 36.7 C 05/29/18 23:04 Pulse 98 H 05/29/18 23:04 Resp 16 05/29/18 23:04 BP 121/67 05/29/18 23:04 Pulse Ox 90 05/29/18 23:04 Physical Exam: GENERAL: Awake, alert, well-appearing, in no distress. Pt is very thin. HEENT: Normocephalic, atraumatic. EYES: Normal conjunctiva. Sclera non-icteric. EOMI. NECK: Supple. Full range of motion. no JVD RESPIRATORY: Clear to auscultation. CARDIAC: Regular rate, normal rhythm. Extremities warm and well perfused. Pulses equal. ABDOMEN: Soft, non-distended. mild tenderness near incision site. No rebound or guarding. No masses. Bowel sounds are hypoactive. LOWER EXTREMITIES: Calves are equal size bilaterally and non-tender. No edema. No discoloration. NEURO: No gross focal motor deficits noted. SKIN: Rash not present. No jaundice noted. _ (1) Nausea & vomiting Vomiting Intractability: non-intractable Vomiting type: unspecified Qualified Code(s): R11.2 - Nausea with vomiting, unspecified
[2018-05-30] MEDS ORDERED: COUGH DROP (SUGAR FREE) LOZ 24 LOZ/1 BOX BUCCAL PRN (01:03)
[2018-05-30] MEDS: CEFAZOLIN 1000MG 1,000 MG/7.5 ML SYR IV SCH ×3 (03:57→20:21)
[2018-05-30] MEDS: ACETAMINOPHEN 65 ML IV SCH ×2 (03:57→12:06)
[2018-05-30] MEDS: ONDANSETRON INJ 2 MG/ML 2 ML VIAL IV PRN ×4 (04:17→18:14)
[2018-05-30] MEDS ORDERED: SENNA 8.8 MG/5 ML UDP PO PRN (08:03)
--- NOTE | 2018-05-30 08:10 | Progress Note ---
Date of Service May 30, 2018 Assessment & Plan (1) Incarcerated femoral hernia: has good bowel sounds- try suppository, senna syrup cont [place]- may need additional days in hospital leave drain for now Dr Brady covering over weekend Subjective some nausea- no bm, ??flatus no emesis dr- serous Physical Exam 2 Vital Signs (Past 24 Hours): Last Vital Signs Temp 36.8 C 05/30/18 08:00 Pulse 96 H 05/30/18 08:00 Resp 20 05/30/18 08:00 BP 150/77 H 05/30/18 08:00 Pulse Ox 92 05/30/18 08:00 abd- flat, soft, active bs incision intact
[2018-05-30] MEDS ORDERED: RALOXIFENE HCL 60 MG TAB PO SCH (09:00)
[2018-05-30] MEDS ORDERED: BISACODYL 10 MG SUPP PR ONE (09:04)
[2018-05-30] MEDS: CALCIUM 600MG + VIT D 400 IU TAB PO SCH (09:35)
[2018-05-30] MEDS: ENOXAPARIN INJ 30 MG/0.3 ML SYR SQ SCH (09:37)
[2018-05-30] MEDS: METOPROLOL SUCC 25MG EXT REL TAB PO SCH ×3 (09:37→20:41)
[2018-05-30] MEDS: MULTIVITAMIN TAB PO SCH (09:40)
[2018-05-30] MEDS ORDERED: HYDROCODONE/ACETAMOPHEN 5/325MG TAB PO PRN (13:32)
[2018-05-30] MEDS ORDERED: PROMETHAZINE HCL 12.5 MG in SODIUM CHLORIDE 0.9% 50 ML IV PRN (13:36)
--- NOTE | 2018-05-30 13:44 | Progress Note ---
Date of Service May 30, 2018 Assessment & Plan (1) Incarcerated femoral hernia: not taking much po- IV fluid, atbx, prn IV Tylenol po [place], adv diet when po improved check labs in am, give IV Mg will need to stay in hospital until mobility improved and GI function improved Subjective rec suppository- some flatus, no bm some pain, nausea- rec IV Tylenol low Mg Physical Exam 2 Vital Signs (Past 24 Hours): Last Vital Signs Temp 37 C 05/30/18 12:12 Pulse 94 H 05/30/18 12:12 Resp 18 05/30/18 12:12 BP 153/83 H 05/30/18 12:12 Pulse Ox 94 05/30/18 12:12 abd- soft- vigorous bs
[2018-05-30] MEDS ORDERED: MAGNESIUM SULFATE / D5W 1 GM/100 ML BAG IV ONE (14:00)
[2018-05-30] MEDS: NSS + 20MEQ KCL 20 MEQ/1,000 ML BAG IV SCH (15:22)
[2018-05-30] MEDS ORDERED: ACETAMINOPHEN 65 ML IV PRN (18:00)
[2018-05-30] MEDS: RALOXIFENE HCL 60 MG TAB PO SCH (18:08)
[2018-05-30] MEDS: HYDROCODONE/ACETAMOPHEN 5/325MG TAB PO PRN (20:20)
[2018-05-30] MEDS: SIMVASTATIN 10 MG TAB PO SCH (20:24)
[2018-05-31] MEDS: CEFAZOLIN 1000MG 1,000 MG/7.5 ML SYR IV SCH ×3 (03:29→20:45)
[2018-05-31] MEDS: HYDROCODONE/ACETAMOPHEN 5/325MG TAB PO PRN ×4 (04:12→23:47)
[2018-05-31 06:14] LABS: Basophils # (auto) 0.01 K/uL (0-0.2); Basophils % (auto) 0.1 %; Eosinophils # (auto) 0.09 K/uL (0-0.5); Hematocrit (blood only) 29.9 % (37-47); Hemoglobin 9.5 g/dL (12.0-16.0); Immature Granulocytes # (auto) 0.02 K/uL (0.00-0.02); Immature Granulocytes % (auto) 0.2 %; Lymphocytes # (auto) 1.28 K/uL (1.2-3.4); Lymphocytes % (auto) 14.4 %; Mean Corpuscular Hgb Conc 31.8 g/dL (32-36); Mean Corpuscular Volume 95.5 fL (80-100); Monocytes # (auto) 0.57 K/uL (0.11-0.59); Monocytes % (auto) 6.4 %; Neutrophils # (auto) 6.93 K/uL (1.4-6.5); Neutrophils % (auto) 77.9 %; Platelet Count 181 K/uL (130-400); RDW Standard Deviation 52.1 fL (36.4-46.3); Red Blood Count 3.13 M/uL (4.2-5.4)
[2018-05-31 06:48] LABS: Albumin Level 2.2 gm/dl (3.4-5.0); BUN Creatinine Ratio 14.4 (10-20); Calcium 7.9 mg/dl (8.5-10.1); Creatinine Clr Calc Pharmacy 36.7 ml/min; Est GFR (African American) 86.6; Est GFR (Non-African American) 74.8; Magnesium 1.8 mg/dl (1.8-2.4); Potassium 4.4 mmol/L (3.5-5.1)
[2018-05-31 07:11] LABS: Albumin Globulin Ratio 0.7 (0.9-2); Bilirubin,Total 0.2 mg/dl (0.2-1); Globulin 3.2 gm/dl (2.5-4.0); Phosphorus 1.5 mg/dl (2.5-4.9); Total Protein 5.4 gm/dl (6.4-8.2)
[2018-05-31] MEDS ORDERED: POTASSIUM PHOS 3 MMOL/1 ML INFUSION IV STA (08:22)
[2018-05-31] MEDS ORDERED: POTASSIUM PHOSPHATE 24 MMOL in SODIUM CHLORIDE 0.9% 500 ML IV ONE (08:45)
--- NOTE | 2018-05-31 08:54 | Surgery Progress Note ---
Date of Service May 31, 2018 Assessment & Plan (1) Incarcerated femoral hernia: POD # 3 Right Femoral Hernia Repair with Dr. Perez Patient reports pain is controlled Afebrile. Patient states that she became a bit nauseous with breakfast tray- no emesis and nausea quickly resolved. Will keep on full liquids, informed patient to go slow with lunch tray. Continue physical therapy- patient reports that her goal is to return home after eventual discharge. Daily dressing change per nursing. Continue drain. Please call with questions or concerns. Subjective Patient resting in bed Pain controlled Reports passing flatus, BM last evening. Physical Exam 2 Vital Signs (Past 24 Hours): Last Vital Signs Temp 36.3 C L 05/31/18 07:25 Pulse 83 05/31/18 07:25 Resp 16 05/31/18 07:25 BP 124/71 05/31/18 07:25 Pulse Ox 90 05/31/18 07:25 Gastrointestinal (Abdomen): Inspection/Auscultation: + abdomen distended (per patient- improved. ) and + abdominal surgical incision (clean, dry, intact. ) Percussion/Palpation: + abdomen tender (with palpation )
[2018-05-31] MEDS ORDERED: ASMANEX INH SCH (09:00)
[2018-05-31] MEDS: ONDANSETRON INJ 2 MG/ML 2 ML VIAL IV PRN (09:58)
[2018-05-31] MEDS: ENOXAPARIN INJ 30 MG/0.3 ML SYR SQ SCH (10:16)
[2018-05-31] MEDS: METOPROLOL SUCC 25MG EXT REL TAB PO SCH ×3 (10:18→20:42)
[2018-05-31] MEDS: MULTIVITAMIN TAB PO SCH (10:22)
[2018-05-31] MEDS: CALCIUM 600MG + VIT D 400 IU TAB PO SCH (10:23)
[2018-05-31] MEDS: NSS + 20MEQ KCL 20 MEQ/1,000 ML BAG IV SCH (15:05)
--- NOTE | 2018-05-31 16:45 | Hospitalist Progress Note ---
Date of Service May 30, 2018 Assessment & Plan (1) Abdominal pain: This is a pleasant 82-year-old female with past medical history of right femoral hernia, Weston-Danlos, rheumatoid arthritis, takotsubo cardiomyopathy, melanoma of left lower extremity, and asthma who presents with acute onset abdominal pain earlier this afternoon. Abdominal pain -CAT scan concerning for developing small bowel obstruction versus gastroenteritis -Patient's pain is primarily left-sided although she does have a history of right femoral inguinal hernia which has required repair about 20 years ago. She is followed by Dr. Perez for this Patient had repair right femoral hernia with likely incarcerated bowel on day of admission Patient pain has improved. Patient has not had a bowel movement but continues to pass gas. Patient is currently on a full liquid diet. Once patient is able to have bowel movement and is tolerating diet, will then discharge patient. Anticipate patient will be here over the weekend. DVT ppx: lovenox q24h CODE STATUS: FULL - confirmed with pt Other ongoing medical problems: Takotsubo CM -restarted aspirin Hypertension -Restarted her home medicine Hyperlipidemia -restarted home medicine. 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 Mckay -plan for follow-up chest CT to reevaluate spiculated lesion in the left lung as of January 2018. -Continue inhalers Severe ALPA -CPAP as needed Severe protein-calorie malnutrition, BMI 14.9 kg/m*m Likely secondary to her primary problem. Will monitor her oral intake. May consider nutritional consult. Spent 25 minutes in management of patient. I updated her son. (2) Nausea & vomiting: (3) Acute hyponatremia: (4) HLD (hyperlipidemia): (5) History of appendectomy: (6) Femoral hernia of right side: Subjective 82 yo female S/P Open right femoral hernia repair with abdominal exploration. Patient reports feeling better. Her pain is better controlled. Patient is passing gas. Physical Exam 2 Vital Signs (Past 24 Hours): Last Vital Signs Temp 37 C 05/30/18 12:12 Pulse 94 05/30/18 12:12 Resp 18 05/30/18 12:12 BP 153/783 05/30/18 12:12 Pulse Ox 94 05/30/18 12:12 Physical Exam: GENERAL: Awake, alert, well-appearing, in no distress. Pt is very thin. HEENT: Normocephalic, atraumatic. EYES: Normal conjunctiva. Sclera non-icteric. EOMI. NECK: Supple. Full range of motion. no JVD RESPIRATORY: Clear to auscultation. CARDIAC: Regular rate, normal rhythm. Extremities warm and well perfused. Pulses equal. ABDOMEN: Soft, non-distended. mild tenderness near incision site. No rebound or guarding. No masses. Bowel sounds are hypoactive. LOWER EXTREMITIES: Calves are equal size bilaterally and non-tender. No edema. No discoloration. NEURO: No gross focal motor deficits noted. SKIN: Rash not present. No jaundice noted. _ (1) Nausea & vomiting Vomiting Intractability: non-intractable Vomiting type: unspecified Qualified Code(s): R11.2 - Nausea with vomiting, unspecified
[2018-05-31] MEDS: RALOXIFENE HCL 60 MG TAB PO SCH (18:38)
[2018-05-31] MEDS: ASMANEX INH SCH (20:37)
[2018-05-31] MEDS: SIMVASTATIN 10 MG TAB PO SCH (20:43)
[2018-06-01] MEDS: NSS + 20MEQ KCL 20 MEQ/1,000 ML BAG IV SCH ×2 (03:40→23:18)
[2018-06-01] MEDS: CEFAZOLIN 1000MG 1,000 MG/7.5 ML SYR IV SCH ×3 (03:43→19:46)
[2018-06-01] MEDS: ENOXAPARIN INJ 30 MG/0.3 ML SYR SQ SCH (09:58)
[2018-06-01] MEDS: MULTIVITAMIN TAB PO SCH (09:59)
[2018-06-01] MEDS: METOPROLOL SUCC 25MG EXT REL TAB PO SCH ×3 (09:59→20:44)
[2018-06-01] MEDS: CALCIUM 600MG + VIT D 400 IU TAB PO SCH (09:59)
[2018-06-01] MEDS ORDERED: PANTOprazole 40 MG in SYRINGE 0 ML IV SCH (11:00)
--- NOTE | 2018-06-01 11:11 | Surgery Progress Note ---
Date of Service June 01, 2018 Assessment & Plan (1) Incarcerated femoral hernia: POD #4 Right Femoral Hernia Repair with Dr. Perez Pain controlled with PO pain medication. Will add Protonix to help with acid reflux. Will keep patient on full liquids for now- reports that she is not that hungry. Continue drain Please call with questions or concerns. POD # 3 Right Femoral Hernia Repair with Dr. Perez Patient reports pain is controlled Afebrile. Patient states that she became a bit nauseous with breakfast tray- no emesis and nausea quickly resolved. Will keep on full liquids, informed patient to go slow with lunch tray. Continue physical therapy- patient reports that her goal is to return home after eventual discharge. Daily dressing change per nursing. Continue drain. Please call with questions or concerns. Subjective Patient resting in bed- reports nausea this AM- states that she tends to have a very sensitive stomach. Denies nausea after eating. Reports burning across her chest- feels like heartburn. Denies chest pain. Patient states that she does take PRN Prevacid at home. Physical Exam 2 Vital Signs (Past 24 Hours): Last Vital Signs Temp 36.4 C L 06/01/18 07:11 Pulse 87 06/01/18 09:43 Resp 16 06/01/18 07:11 BP 161/82 H 06/01/18 09:43 Pulse Ox 90 06/01/18 07:11 Gastrointestinal (Abdomen): Inspection/Auscultation: + abdominal surgical incision (clean, dry, intact. Surgical dressing changed. ) and + abdominal surgical drain present Percussion/Palpation: + abdomen tender (with palpation ) and abdomen soft
[2018-06-01] MEDS: HYDROCODONE/ACETAMOPHEN 5/325MG TAB PO PRN ×2 (11:21→23:17)
--- NOTE | 2018-06-01 13:30 | Hospitalist Progress Note ---
Date of Service May 31, 2018 Assessment & Plan (1) Abdominal pain: This is a pleasant 82-year-old female with past medical history of right femoral hernia, Weston-Danlos, rheumatoid arthritis, takotsubo cardiomyopathy, melanoma of left lower extremity, and asthma who presents with acute onset abdominal pain earlier this afternoon. Abdominal pain -CAT scan concerning for developing small bowel obstruction versus gastroenteritis -Patient's pain is primarily left-sided although she does have a history of right femoral inguinal hernia which has required repair about 20 years ago. She is followed by Dr. Perez for this Patient had repair right femoral hernia with likely incarcerated bowel on day of admission Patient's pain has improved. Patient has had a bowel movement but continues to pass gas. Patient is currently on a full liquid diet and is tolerating this. Will continue to monitor over course of weekend Anticipate possible discharge early in the week. DVT ppx: lovenox q24h CODE STATUS: FULL - confirmed with pt Other ongoing medical problems: Takotsubo CM -restarted aspirin Hypertension -Restarted her home medicine Hyperlipidemia -restarted home medicine. 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 Mckay -plan for follow-up chest CT to reevaluate spiculated lesion in the left lung as of January 2018. -Continue inhalers Severe ALPA -CPAP as needed Severe protein-calorie malnutrition, BMI 14.9 kg/m*m Likely secondary to her primary problem. Will monitor her oral intake. May consider nutritional consult. Spent 25 minutes in management of patient. (2) Nausea & vomiting: (3) Acute hyponatremia: (4) HLD (hyperlipidemia): (5) History of appendectomy: (6) Femoral hernia of right side: Subjective 82 yo female S/P Open right femoral hernia repair with abdominal exploration. Patient reports feeling better. Her pain is better controlled. Patient is passing gas and reported a small stool which was formed. Physical Exam 2 Vital Signs (Past 24 Hours): Last Vital Signs Temp 36.6 C L 05/31/18 15:19 Pulse 81 05/31/18 15:19 Resp 17 05/31/18 15:19 BP 124/71 05/31/18 15:19 Pulse Ox 91 05/31/18 15:19 Physical Exam: GENERAL: Awake, alert, well-appearing, in no distress. Pt is very thin. HEENT: Normocephalic, atraumatic. EYES: Normal conjunctiva. Sclera non-icteric. EOMI. NECK: Supple. Full range of motion. no JVD RESPIRATORY: Clear to auscultation. CARDIAC: Regular rate, normal rhythm. Extremities warm and well perfused. Pulses equal. ABDOMEN: Soft, non-distended. mild tenderness near incision site. No rebound or guarding. No masses. Bowel sounds are hypoactive. LOWER EXTREMITIES: Calves are equal size bilaterally and non-tender. No edema. No discoloration. NEURO: No gross focal motor deficits noted. SKIN: Rash not present. No jaundice noted. _ (1) Nausea & vomiting Vomiting Intractability: non-intractable Vomiting type: unspecified Qualified Code(s): R11.2 - Nausea with vomiting, unspecified
[2018-06-01] MEDS ORDERED: RANITIDINE HCL SYRUP 150 MG/10 ML UDC PO ONE (13:36)
[2018-06-01] MEDS: RALOXIFENE HCL 60 MG TAB PO SCH (17:30)
[2018-06-01] MEDS: ONDANSETRON INJ 2 MG/ML 2 ML VIAL IV PRN (19:41)
[2018-06-01] MEDS: ASMANEX INH SCH (20:43)
[2018-06-01] MEDS: SIMVASTATIN 10 MG TAB PO SCH (20:44)
--- NOTE | 2018-06-01 23:39 | Hospitalist Progress Note ---
Date of Service June 01, 2018 Assessment & Plan (1) Abdominal pain: This is a pleasant 82-year-old female with past medical history of right femoral hernia, Weston-Danlos, rheumatoid arthritis, takotsubo cardiomyopathy, melanoma of left lower extremity, and asthma who presents with acute onset abdominal pain earlier this afternoon. Abdominal pain -CAT scan concerning for developing small bowel obstruction versus gastroenteritis -Patient's pain is primarily left-sided although she does have a history of right femoral inguinal hernia which has required repair about 20 years ago. She is followed by Dr. Perez for this Patient had repair right femoral hernia with likely incarcerated bowel on day of admission Patient's pain has improved. Patient continue cephalexin.. Patient has had a bowel movement but continues to pass gas. Patient is currently on a full liquid diet and is tolerating this, however, she had an episode of nasuea today. No vomiting. Will continue to monitor over course of weekend Anticipate possible discharge early in the week. Gerd: SUrgery started IV PPI Swichted to zantac. in AM. DVT ppx: lovenox q24h CODE STATUS: FULL - confirmed with pt Other ongoing medical problems: Takotsubo CM -restarted aspirin Hypertension -Restarted her home medicine Hyperlipidemia -restarted home medicine. 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 Mckay -plan for follow-up chest CT to reevaluate spiculated lesion in the left lung as of January 2018. -Continue inhalers Severe ALPA -CPAP as needed Severe protein-calorie malnutrition, BMI 14.9 kg/m*m Likely secondary to her primary problem. Will monitor her oral intake. May consider nutritional consult. Spent 25 minutes in management of patient. (2) Nausea & vomiting: (3) Acute hyponatremia: (4) HLD (hyperlipidemia): (5) History of appendectomy: (6) Femoral hernia of right side: Subjective 82 yo female S/P Open right femoral hernia repair with abdominal exploration. Patient reports feeling better. She did have an epsode of nausea and gerd (longstanding) She states that she never had an upper GI endoscopy, once they tried, but she went into respiratory distress and procedure was cancelled. Her pain is better controlled. Patient is passing gas and passing stools today. Physical Exam 2 Vital Signs (Past 24 Hours): Last Vital Signs Temp 36.9 C 06/01/18 22:58 Pulse 88 06/01/18 22:58 Resp 17 06/01/18 22:58 BP 163/66 H 06/01/18 22:58 Pulse Ox 90 06/01/18 22:58 Physical Exam: GENERAL: Awake, alert, well-appearing, in no distress. Pt is very thin. HEENT: Normocephalic, atraumatic. EYES: Normal conjunctiva. Sclera non-icteric. EOMI. NECK: Supple. Full range of motion. no JVD RESPIRATORY: Clear to auscultation. CARDIAC: Regular rate, normal rhythm. Extremities warm and well perfused. Pulses equal. ABDOMEN: Soft, non-distended. mild tenderness near incision site. No rebound or guarding. No masses. Bowel sounds are hypoactive. LOWER EXTREMITIES: Calves are equal size bilaterally and non-tender. No edema. No discoloration. NEURO: No gross focal motor deficits noted. SKIN: Rash not present. No jaundice noted. _ (1) Nausea & vomiting Vomiting Intractability: non-intractable Vomiting type: unspecified Qualified Code(s): R11.2 - Nausea with vomiting, unspecified
[2018-06-02] MEDS: CEFAZOLIN 1000MG 1,000 MG/7.5 ML SYR IV SCH (04:02)
--- NOTE | 2018-06-02 06:27 | Progress Note ---
Date of Service June 02, 2018 Assessment & Plan (1) Incarcerated femoral hernia: adv diet to low fiber, try po cephalexin (may need liquid) d/c drain- some concern for drainage- may end up with wound vac if persists as risk for seroma infection- will monitor- possible d/c 1-2 days Subjective some occas nausea- no emesis, ? meds, had bm dr- serous Physical Exam 2 Vital Signs (Past 24 Hours): Last Vital Signs Temp 36.9 C 06/01/18 22:58 Pulse 88 06/01/18 22:58 Resp 17 06/01/18 22:58 BP 163/66 H 06/01/18 22:58 Pulse Ox 90 06/01/18 22:58 abd flat, soft, good bowel sounds clear serous drainage
[2018-06-02] MEDS: ASPIRIN 81 MG ECTAB PO SCH (08:42)
[2018-06-02] MEDS: MULTIVITAMIN TAB PO SCH (08:42)
[2018-06-02] MEDS: CALCIUM 600MG + VIT D 400 IU TAB PO SCH (08:42)
[2018-06-02] MEDS: METOPROLOL SUCC 25MG EXT REL TAB PO SCH ×3 (08:43→20:35)
[2018-06-02] MEDS: ENOXAPARIN INJ 30 MG/0.3 ML SYR SQ SCH (08:43)
[2018-06-02] MEDS: RANITIDINE HCL SYRUP 150 MG/10 ML UDC PO SCH (08:44)
[2018-06-02] MEDS ORDERED: cephALEXin 500 MG CAP PO SCH (09:00)
[2018-06-02 11:54] LABS: Hematocrit (blood only) 33.8 % (37-47); Hemoglobin 10.6 g/dL (12.0-16.0)
[2018-06-02] MEDS: HYDROCODONE/ACETAMOPHEN 5/325MG TAB PO PRN ×2 (12:20→20:59)
--- NOTE | 2018-06-02 15:40 | Hospitalist Progress Note ---
Date of Service June 02, 2018 Assessment & Plan (1) Femoral hernia of right side: incarcerated bowel, reduced and repaired on the day of admission minimal pain today she is moving bowels diet being advanced by surgery drain pulled, close monitoring since she could develop seroma keep in hospital until surgery is okay with discharge (2) Abdominal pain: due to hernia, resolved after surgery (3) Nausea & vomiting: resolved after fixing the hernia (4) Acute hyponatremia: Na 135 two days ago, will check tomorrow (5) HLD (hyperlipidemia): continue statin (6) Takotsubo cardiomyopathy: continue aspirin examines euvolemic (7) HTN (hypertension): BP stable on metoprolol (8) Rheumatoid arthritis: chronic issue, Celebrex on hold, continue Lidocaine (9) DVT prophylaxis: Lovenox Plan: advance diet, therapy, possible d/c in 1-2 days Subjective patient doing well, just completed PT when I saw her she said she was fatigued but not really short of breath no abdominal pain, she has moved her bowels, surgery advanced her diet checked Hb, up to 10.6 from 9 discussed with general surgery, appreciate their recommendations hope to d/c in 1-2 days Review of Systems All systems reviewed & are unremarkable except as noted in HPI & below Constitutional: + fatigue and + weakness Physical Exam 2 Vital Signs (Past 24 Hours): Last Vital Signs Temp 36.6 C 06/02/18 15:09 Pulse 74 06/02/18 15:09 Resp 16 06/02/18 15:09 BP 147/84 H 06/02/18 15:09 Pulse Ox 94 06/02/18 15:09 Constitutional: WD/WN, vitals as above Eyes: PERRL, conjunctivae normal, anicteric sclerae ENMT: external ear and nose normal, oropharynx normal Neck: trachea midline, no thyromegaly Respiratory: normal respiratory effort, lungs clear to auscultation Cardiovascular: RRR, no murmur, no edema Gastrointestinal (Abdomen): normal bowel sounds, soft, nontender, no hepatosplenomegaly Musculoskeletal: no cyanosis or clubbing, extremities motor strength 5/5 rheumatoid changes in hands, ulnar deviation of MCP joints Skin: no rashes, warm and dry Neurologic: patellar DTR's 2+ bilat, sensation intact and PERRL, EOMI, accommodation nl, no face palsy, no dysarthria Psychiatric: A+Ox3, euthymic affect Lymphatic: no cervical or axillary lymphadenopathy Results & Data Laboratory Results Laboratory Results - last 24 hr 06/02/18 11:41 Hgb 10.6 L Hct 33.8 L Medications Administered Current Inpatient Medications Acetaminophen (Tylenol) 650 mg PO Q4H PRN PRN Reason: Pain Stop: 06/29/18 08:04 Hydrocodone Bitart/Acetaminophen ([place] 5/325) 1 tab PO 3XDQ4 PRN PRN Reason: Pain 1-5 Stop: 06/13/18 13:31 Last Admin: 06/02/18 12:20 Dose: 1 tab Hydrocodone Bitart/Acetaminophen ([place] 5/325) 2 tab PO 3XDQ4 PRN PRN Reason: Pain 6-10 Stop: 06/13/18 13:31 Albuterol (Ventolin Hfa) 2 puffs INH Q6H PRN PRN Reason: Shortness Of Breath Or Wheezin Stop: 06/27/18 04:27 Aspirin (Ecotrin Ectab) 81 mg PO MoTh@0900 [facility] Stop: 06/28/18 08:59 Last Admin: 06/02/18 08:42 Dose: 81 mg Cephalexin HCl (Keflex) 250 mg PO QID [facility] Stop: 06/12/18 08:59 Last Admin: 06/02/18 13:19 Dose: 250 mg Enoxaparin Sodium (Lovenox) 30 mg SQ QAM [facility]; Protocol Stop: 06/28/18 08:59 Last Admin: 06/02/18 08:43 Dose: 30 mg Acetaminophen (Ofirmev) 65 mls @ 200 mls/hr IV Q6 PRN PRN Reason: Pain Stop: 06/29/18 17:59 Promethazine HCl 12.5 mg/ (Sodium Chloride) 50.5 mls @ 204 mls/hr IV Q6H PRN PRN Reason: Nausea And Vomiting Stop: 06/29/18 13:35 Lidocaine (Lidoderm 5%) 1 patch TD DAILY PRN PRN Reason: Pain Stop: 06/27/18 04:27 Menthol (Nice) 1 rama BUCCAL NOW PRN PRN Reason: Sore Throat Stop: 06/29/18 01:02 Last Admin: 05/30/18 08:04 Dose: 1 rama Metoprolol Succinate (Toprol Xl) 12.5 mg PO TID [facility] Stop: 06/27/18 13:59 Last Admin: 06/02/18 13:19 Dose: 12.5 mg Miscellaneous (Remove Lidoderm Patch) 1 ea N/A DAILY@2100 PRN PRN Reason: IF PATCH APPLIED IN AM Stop: 06/27/18 20:59 Morphine Sulfate (Morphine Sulfate) 2 mg IV 4XDQ3H PRN PRN Reason: Pain Stop: 06/11/18 10:53 Last Admin: 05/28/18 23:31 Dose: 2 mg Multivitamins (Multivitamin Tab) 1 tab PO DAILY [facility] Stop: 06/28/18 08:59 Last Admin: 06/02/18 08:42 Dose: Not Given Multivitamins/Minerals (Caltrate Plus) 2 tab PO DAILY [facility] Stop: 06/28/18 08:59 Last Admin: 06/02/18 08:42 Dose: Not Given Patient's Own (Asmanex) 1 ea INH [facility] Stop: 06/30/18 20:59 Last Admin: 06/01/18 20:43 Dose: 1 puffs Ondansetron HCl (Zofran) 4 mg IV 4XDQ4H PRN PRN Reason: Nausea Stop: 06/29/18 13:35 Last Admin: 06/01/18 19:41 Dose: 4 mg Raloxifene HCl (Evista) 60 mg PO DAILY@1700 [facility] Stop: 06/29/18 16:59 Last Admin: 06/01/18 17:30 Dose: 60 mg Ranitidine HCl (Zantac) 150 mg PO QAM [facility] Stop: 07/02/18 08:59 Last Admin: 06/02/18 08:44 Dose: 150 mg Sennosides (Senokot) 8.8 mg PO BID PRN PRN Reason: Constipation Stop: 06/29/18 08:02 Simvastatin (Zocor) 10 mg PO [facility] Stop: 06/27/18 20:59 Last Admin: 06/01/18 20:44 Dose: 10 mg _ (1) Nausea & vomiting Vomiting Intractability: non-intractable Vomiting type: unspecified Qualified Code(s): R11.2 - Nausea with vomiting, unspecified
[2018-06-02] MEDS: RALOXIFENE HCL 60 MG TAB PO SCH (17:28)
[2018-06-02] MEDS: SIMVASTATIN 10 MG TAB PO SCH (20:35)
[2018-06-02] MEDS: ASMANEX INH SCH (20:35)
[2018-06-03] MEDS: HYDROCODONE/ACETAMOPHEN 5/325MG TAB PO PRN ×2 (03:35→16:06)
[2018-06-03 06:30] LABS: Basophils # (auto) 0.02 K/uL (0-0.2); Basophils % (auto) 0.3 %; Eosinophils % (auto) 3.2 %; Hematocrit (blood only) 30.5 % (37-47); Hemoglobin 9.7 g/dL (12.0-16.0); Immature Granulocytes # (auto) 0.01 K/uL (0.00-0.02); Immature Granulocytes % (auto) 0.2 %; Lymphocytes # (auto) 1.24 K/uL (1.2-3.4); Lymphocytes % (auto) 20.1 %; Mean Corpuscular Hgb Conc 31.8 g/dL (32-36); Mean Corpuscular Volume 95.9 fL (80-100); Mean Platelet Volume 9.5 fL (7.4-10.4); Monocytes # (auto) 0.45 K/uL (0.11-0.59); Monocytes % (auto) 7.3 %; Neutrophils # (auto) 4.26 K/uL (1.4-6.5); Neutrophils % (auto) 68.9 %; Platelet Count 221 K/uL (130-400); RDW Coefficient of Variation 14.9 % (11.5-14.5); RDW Standard Deviation 51.9 fL (36.4-46.3); Red Blood Count 3.18 M/uL (4.2-5.4); White Blood Count 6.18 K/uL (4.8-10.8)
[2018-06-03 07:03] LABS: BUN Creatinine Ratio 15.3 (10-20); Calcium 7.9 mg/dl (8.5-10.1); Creatinine Clr Calc Pharmacy 39.3 ml/min; Est GFR (African American) 94.2; Est GFR (Non-African American) 81.3; Potassium 4.4 mmol/L (3.5-5.1)
--- NOTE | 2018-06-03 07:20 | Progress Note ---
Date of Service June 03, 2018 Assessment & Plan (1) Incarcerated femoral hernia: overall progress- needs to have help at home to be d/c- possibly tomorrow. cont current wound care, meds, PT Subjective gradually improving - kyler diet PT helping some serous wound drainage Physical Exam 2 Vital Signs (Past 24 Hours): Last Vital Signs Temp 36.7 C 06/02/18 23:30 Pulse 85 06/02/18 23:30 Resp 16 06/02/18 23:30 BP 152/83 H 06/02/18 23:30 Pulse Ox 92 06/02/18 23:30 alert, Rt inguinal incision intact- sl drainage on dressing no erythema
[2018-06-03] MEDS: MULTIVITAMIN TAB PO SCH (09:31)
[2018-06-03] MEDS: cephALEXin 250 MG CAP PO SCH ×4 (09:31→20:42)
[2018-06-03] MEDS: METOPROLOL SUCC 25MG EXT REL TAB PO SCH ×3 (09:31→20:43)
[2018-06-03] MEDS: CALCIUM 600MG + VIT D 400 IU TAB PO SCH (09:31)
[2018-06-03] MEDS: ENOXAPARIN INJ 30 MG/0.3 ML SYR SQ SCH (09:32)
[2018-06-03] MEDS: RANITIDINE HCL SYRUP 150 MG/10 ML UDC PO SCH (09:32)
--- NOTE | 2018-06-03 15:43 | Progress Note ---
Date of Service June 03, 2018 Assessment & Plan (1) Incarcerated femoral hernia: overall progress- needs to have help at home to be d/c- possibly tomorrow. cont current wound care, meds, PT Physical Exam 2 Vital Signs (Past 24 Hours): Last Vital Signs Temp 36.5 C 06/03/18 15:10 Pulse 81 06/03/18 15:10 Resp 16 06/03/18 15:10 BP 157/75 H 06/03/18 15:10 Pulse Ox 92 06/03/18 15:10
--- NOTE | 2018-06-03 15:56 | Hospitalist Progress Note ---
Date of Service June 03, 2018 Assessment & Plan (1) Femoral hernia of right side: incarcerated bowel, causing small bowel obstruction, reduced and repaired on the day of admission pain improving today she is moving bowels (yesterday and today) diet being advanced by surgery, tolerating well drain pulled, close monitoring since she could develop seroma keep in hospital until surgery is okay with discharge, possible for tomorrow (2) Abdominal pain: due to hernia, resolved after surgery (3) Nausea & vomiting: resolved after fixing the hernia (4) Acute hyponatremia: Na 139 today (5) HLD (hyperlipidemia): continue statin (6) Takotsubo cardiomyopathy: continue aspirin examines euvolemic (7) HTN (hypertension): BP stable on metoprolol (8) Rheumatoid arthritis: chronic issue, Celebrex on hold, continue Lidocaine (9) DVT prophylaxis: Lovenox Plan: advance diet, therapy, possible d/c tomorrow Subjective patient doing well, a little bit more abdominal pain today eating good but not as good as yesterday had a small BM today, + flatus Dr. Perez following, feels like she may be ready for discharge tomorrow Review of Systems All systems reviewed & are unremarkable except as noted in HPI & below Gastrointestinal: + abdominal pain; no nausea, no vomiting, no constipation and no diarrhea/loose stools Physical Exam 2 Vital Signs (Past 24 Hours): Last Vital Signs Temp 36.5 C 06/03/18 15:10 Pulse 81 06/03/18 15:10 Resp 16 06/03/18 15:10 BP 157/75 H 06/03/18 15:10 Pulse Ox 92 06/03/18 15:10 Constitutional: WD/WN, vitals as above Eyes: PERRL, conjunctivae normal, anicteric sclerae ENMT: external ear and nose normal, oropharynx normal Neck: trachea midline, no thyromegaly Respiratory: normal respiratory effort, lungs clear to auscultation Cardiovascular: RRR, no murmur, no edema Gastrointestinal (Abdomen): normal bowel sounds, soft, nontender, no hepatosplenomegaly Musculoskeletal: no cyanosis or clubbing, extremities motor strength 5/5 Skin: no rashes, warm and dry Neurologic: patellar DTR's 2+ bilat, sensation intact and PERRL, EOMI, accommodation nl, no face palsy, no dysarthria Psychiatric: A+Ox3, euthymic affect Lymphatic: no cervical or axillary lymphadenopathy Results & Data Laboratory Results Laboratory Results - last 24 hr 06/03/18 06/03/18 06:08 06:08 WBC 6.18 RBC 3.18 L Hgb 9.7 L Hct 30.5 L MCV 95.9 MCH 30.5 MCHC 31.8 L RDW Std Deviation 51.9 H RDW Coeff of [place] 14.9 H Plt Count 221 MPV 9.5 Immature Gran % (Auto) 0.2 Neut % (Auto) 68.9 Lymph % (Auto) 20.1 [place] % (Auto) 7.3 Eos % (Auto) 3.2 Baso % (Auto) 0.3 Immature Gran # (Auto) 0.01 Neut # (Auto) 4.26 Lymph # (Auto) 1.24 [place] # (Auto) 0.45 Eos # (Auto) 0.20 Baso # (Auto) 0.02 Sodium 139 Potassium 4.4 Chloride 107 Carbon Dioxide 28 Anion Gap 4.0 BUN 11 Creatinine 0.70 Est Cr Clr Drug Dosing 39.3 Est GFR ( Amer) 94.2 Est GFR (Non-Af Amer) 81.3 BUN/Creatinine Ratio 15.3 Glucose 88 Calcium 7.9 L Medications Administered Current Inpatient Medications Acetaminophen (Tylenol) 650 mg PO Q4H PRN PRN Reason: Pain Stop: 06/29/18 08:04 Hydrocodone Bitart/Acetaminophen ([place] 5/325) 1 tab PO 3XDQ4 PRN PRN Reason: Pain 1-5 Stop: 06/13/18 13:31 Last Admin: 06/03/18 03:35 Dose: 1 tab Hydrocodone Bitart/Acetaminophen ([place] 5/325) 2 tab PO 3XDQ4 PRN PRN Reason: Pain 6-10 Stop: 06/13/18 13:31 Albuterol (Ventolin Hfa) 2 puffs INH Q6H PRN PRN Reason: Shortness Of Breath Or Wheezin Stop: 06/27/18 04:27 Aspirin (Ecotrin Ectab) 81 mg PO MoTh@0900 [facility] Stop: 06/28/18 08:59 Last Admin: 06/02/18 08:42 Dose: 81 mg Cephalexin HCl (Keflex) 250 mg PO QID [facility]; Protocol Stop: 06/13/18 08:59 Last Admin: 06/03/18 14:01 Dose: 250 mg Enoxaparin Sodium (Lovenox) 30 mg SQ QAM [facility]; Protocol Stop: 06/28/18 08:59 Last Admin: 06/03/18 09:32 Dose: 30 mg Acetaminophen (Ofirmev) 65 mls @ 200 mls/hr IV Q6 PRN PRN Reason: Pain Stop: 06/29/18 17:59 Promethazine HCl 12.5 mg/ (Sodium Chloride) 50.5 mls @ 204 mls/hr IV Q6H PRN PRN Reason: Nausea And Vomiting Stop: 06/29/18 13:35 Lidocaine (Lidoderm 5%) 1 patch TD DAILY PRN PRN Reason: Pain Stop: 06/27/18 04:27 Menthol (Nice) 1 rama BUCCAL NOW PRN PRN Reason: Sore Throat Stop: 06/29/18 01:02 Last Admin: 05/30/18 08:04 Dose: 1 rama Metoprolol Succinate (Toprol Xl) 12.5 mg PO TID [facility] Stop: 06/27/18 13:59 Last Admin: 06/03/18 14:01 Dose: 12.5 mg Miscellaneous (Remove Lidoderm Patch) 1 ea N/A DAILY@2100 PRN PRN Reason: IF PATCH APPLIED IN AM Stop: 06/27/18 20:59 Multivitamins (Multivitamin Tab) 1 tab PO DAILY [facility] Stop: 06/28/18 08:59 Last Admin: 06/03/18 09:31 Dose: Not Given Multivitamins/Minerals (Caltrate Plus) 2 tab PO DAILY [facility] Stop: 06/28/18 08:59 Last Admin: 06/03/18 09:31 Dose: Not Given Patient's Own (Asmanex) 1 ea INH HS [facility] Stop: 06/30/18 20:59 Last Admin: 06/02/18 20:35 Dose: 1 puffs Ondansetron HCl (Zofran) 4 mg IV 4XDQ4H PRN PRN Reason: Nausea Stop: 06/29/18 13:35 Last Admin: 06/01/18 19:41 Dose: 4 mg Raloxifene HCl (Evista) 60 mg PO DAILY@1700 [facility] Stop: 06/29/18 16:59 Last Admin: 06/02/18 17:28 Dose: 60 mg Ranitidine HCl (Zantac) 150 mg PO QAM [facility] Stop: 07/02/18 08:59 Last Admin: 06/03/18 09:32 Dose: 150 mg Sennosides (Senokot) 8.8 mg PO BID PRN PRN Reason: Constipation Stop: 06/29/18 08:02 Simvastatin (Zocor) 10 mg PO HS [facility] Stop: 06/27/18 20:59 Last Admin: 06/02/18 20:35 Dose: 10 mg _ (1) Nausea & vomiting Vomiting Intractability: non-intractable Vomiting type: unspecified Qualified Code(s): R11.2 - Nausea with vomiting, unspecified
[2018-06-03] MEDS: RALOXIFENE HCL 60 MG TAB PO SCH (17:35)
[2018-06-03] MEDS: SIMVASTATIN 10 MG TAB PO SCH (20:41)
[2018-06-03] MEDS: ASMANEX INH SCH (20:41)
[2018-06-04] MEDS: ACETAMINOPHEN 325 MG TAB PO PRN ×2 (02:33→10:07)
[2018-06-04] MEDS: MULTIVITAMIN TAB PO SCH (09:13)
[2018-06-04] MEDS: ENOXAPARIN INJ 30 MG/0.3 ML SYR SQ SCH (09:13)
[2018-06-04] MEDS: cephALEXin 250 MG CAP PO SCH ×2 (09:13→13:39)
[2018-06-04] MEDS: CALCIUM 600MG + VIT D 400 IU TAB PO SCH (09:13)
[2018-06-04] MEDS: METOPROLOL SUCC 25MG EXT REL TAB PO SCH ×2 (09:14→13:39)
[2018-06-04] MEDS: RANITIDINE HCL SYRUP 150 MG/10 ML UDC PO SCH (09:14)
--- NOTE | 2018-06-04 14:57 | Discharge Summary ---
Date of Service June 04, 2018 Admission HPI Per Admitting Provider This is a pleasant 82-year-old female with past medical history of right femoral hernia, Weston-Danlos, juvenile rheumatoid arthritis, takotsubo cardiomyopathy, melanoma of left lower extremity, and asthma who presents with acute onset abdominal pain earlier this afternoon. Patient describes having had a normal bowel movement, perhaps smaller than usual, yesterday morning which was nonbloody and formed. Had a late breakfast as well as a lunch. She states later in the afternoon she began to feel progressive abdominal pain in her lower abdomen that progressively got more intense and traveled to her left upper abdomen and left lower abdomen. She spoke with her son who is a pathologist and he recommended she be seen. She endorses nausea and vomiting today as well. ED course: Her CAT scan shows dilated small loops of bowel with air-fluid levels concerning for developing small bowel obstruction versus gastroenteritis. Hyponatremia 128, leukocytosis WBC 16,000. Afebrile. Hypertensive. She has been treated with morphine, fluids and Zofran. Her pain still rates 8 out of 10. Admission Exam Per Admitting Provider Vitals noted as above and within normal limits. GENERAL: Awake, alert, well-appearing, in no distress. Pt is very thin. HENT: Normocephalic, atraumatic. EYES: Normal conjunctiva. Sclera non-icteric. EOMI. NECK: Supple. Full range of motion. no JVD RESPIRATORY: Clear to auscultation. CARDIAC: Regular rate, normal rhythm. Extremities warm and well perfused. Pulses equal. ABDOMEN: Soft, non-distended. Moderate tenderness to palpation in LL/LUQ. No rebound or guarding. No masses. Bowel sounds are hypoactive. LOWER EXTREMITIES: Calves are equal size bilaterally and non-tender. No edema. No discoloration. NEURO: No gross focal motor deficits noted. SKIN: Rash not present. No jaundice noted. Principal Diagnosis Incarcerated femoral hernia causing small bowel obstruction Discharge Exam Constitutional WD/WN, vitals as above Eyes PERRL, conjunctivae normal, anicteric sclerae ENMT external ear and nose normal, oropharynx normal Neck trachea midline, no thyromegaly Respiratory normal respiratory effort, lungs clear to auscultation Cardiovascular RRR, no murmur, no edema Gastrointestinal (Abdomen) normal bowel sounds, soft, nontender, no hepatosplenomegaly wound with dressing Musculoskeletal no cyanosis or clubbing, extremities motor strength 5/5 Skin no rashes, warm and dry Neurologic patellar DTR's 2+ bilat, sensation intact and PERRL, EOMI, accommodation nl, no face palsy, no dysarthria Psychiatric A+Ox3, euthymic affect Lymphatic no cervical or axillary lymphadenopathy Discharge Data Allergies Allergy/AdvReac Type Severity Reaction Status Date / Time meperidine Allergy Mild RESP ARREST Verified 05/28/18 01:40 midazolam Allergy Mild RESP ARREST Verified 05/28/18 01:40 amoxicillin Allergy Unknown FROM Verified 05/28/18 01:40 AUGMENTIN clavulanic acid Allergy Unknown Unknown Verified 05/28/18 01:40 codeine Allergy Unknown Unknown Verified 05/28/18 01:40 Penicillins Allergy Unknown Unknown Verified 05/28/18 01:40 ibuprofen AdvReac Mild UPSETS HER Verified 05/28/18 01:40 STOMACH Consultations 05/28/18 01:49 ED Decision to Admit Stat 05/28/18 04:28 Consult General Surgery Routine 05/28/18 11:22 Consult Case Management - Discharge Planning Routine Procedures Performed Operation Date: 05/28/18 14:20 Actual Procedures p Open Right Femoral Hernia Repair(Right) - Tho Perez MD, FACS p Inguinal/Femoral Open Right Hernia Repair - Tho Perez MD, FACS Operation Date: 05/28/18 14:20 Actual Procedures p Open Right Femoral Hernia Repair(Right) - Tho Perez MD, FACS p Inguinal/Femoral Open Right Hernia Repair - Tho Perez MD, FACS Ordered Studies 05/27/18 22:22 CT abd pelvis IV con only Stat Hospital Course (1) Femoral hernia of right side: incarcerated bowel, causing small bowel obstruction, reduced and repaired on the day of admission no pain today she is moving bowels every day the past few days tolerating regular diet drain pulled, close monitoring since she could develop seroma discussed with Dr. Perez, he will see in the office on Saturday may need a wound vac to prevent seroma but can go home today will have wound care at home (2) Abdominal pain: due to hernia, resolved after surgery (3) Nausea & vomiting: resolved after fixing the hernia (4) Acute hyponatremia: Na 139 yesterday, resolved (5) HLD (hyperlipidemia): continue statin (6) Takotsubo cardiomyopathy: continue aspirin examines euvolemic (7) HTN (hypertension): BP stable on metoprolol (8) Rheumatoid arthritis: chronic issue, Celebrex on hold, continue Lidocaine (9) DVT prophylaxis: Lovenox d/c tomorrow Total Time Total Time Spent Total Time Spent (In Minutes): 35 minutes Total Time Includes: Examination of the Patient, Discharge Planning, Medication Reconciliation and Communication With Other Providers (Dr. Perez) Discharge Plan Discharge Items Patient Disposition: Home - Home Health Services Reason For Visit: ABDOMINAL PAIN Discharge Diagnosis: incarcerated hernia with bowel obstruction Condition: Good Discharge Goals: Decrease discomfort, Improve disease control and Improve function Activity: As commented below Activity Comment: light activity for 4 weeks Lifting: No more than 10 pounds Bathing Comment: may shower Exercise Comment: wait 4 weeks Driving/Machine Use Comment: wait 1 week Non-emergency contact: Primary Care Provider and Surgeon Call non-emergency contact if: your pain is not controlled, your temperature is above 101 and your wound has increased drainage Follow-up/Referrals: Tho Perez MD, FACS [Surgeon] - 06/12/18 2:10 pm (Please, follow up at [facility] General Surgery Office with Dr. Tho Perez on May at 2:10 pm. *This office is located at [address] in [place]. If you need to change this appointment, call the office at [phone].) Kuldip Mckay MD [Primary Care Provider] - 06/11/18 2:30 pm (Please, follow up with Dr. Mckay on SaturdayJune 11 at 2:30 pm. *If you need to change this appointment, call the office at [phone].) Diet: Regular Addtl Provider Instructions: SPECIAL CARE INSTRUCTIONS: * Cover incisions and change daily for comfort/drainage. * May use ibuprofen for pain as tolerated. * Expect some swelling and bruising. Call your doctor if: * Temperature above 101 degrees * Pain not relieved by pain medicine ordered * There is increased drainage or redness from any incision * You have any unanswered questions or concerns [phone]. FOLLOW UP VISIT: If not already scheduled, please call the office for a follow-up visit. OFFICE PHONE NUMBER: Dr. Perez Office for check up within 7-10 days Prescriptions: New cephalexin [Keflex] 250 mg capsule 250 mg PO Q8H 7 Days Qty: 21 RF: 0 hydrocodone-acetaminophen [[place]] 5-325 mg tablet 1 tab PO Q6H Qty: 30 RF: 0 Continue raloxifene 60 mg tablet 60 mg PO DAILY RF: 0 celecoxib 100 mg capsule 100 mg PO DAILY PRN (Reason: Pain) RF: 0 mometasone 110 mcg (30 doses) aerosol powdr breath activated 1 puff Inhalation DAILY RF: 0 aspirin 81 mg Tablet,Delayed Release (Dr/Ec) 81 mg PO 2XWK RF: 0 multivitamin [Multiple Vitamins] Tablet 1 tab PO DAILY RF: 0 simvastatin 10 mg tablet 10 mg PO HS RF: 0 metoprolol succinate 25 mg tablet extended release 24 hr 12.5 mg PO TID RF: 0 lidocaine [Lidoderm] 5 % Adhesive Patch,Medicated 1 patch TOPICAL DAILY PRN (Reason: Pain) RF: 0 albuterol sulfate 90 mcg/actuation Hfa Aerosol Inhaler 2 puff INHALATION Q6H PRN (Reason: Shortness Of Breath Or Wheezing) RF: 0 Caltrate 600 + D 2 tab PO DAILY RF: 0 Stand-Alone Forms: [facility] [employer], [facility] Discharge Orders: Discharge Order (Routine); Ordered 06/04/18 Ordered By: Don Adame Admission Data Admit Date/Time: 05/28/18 03:37 Attending Provider: Don Adame Admit Provider: Cheyenne Cheek Primary Care Provider: Kuldip Mckay Other Providers: Valentín Myers ; Tho Perez ; Home,Nursing Agency Service: Surgical Services Other Interventions: Discharge Summary Assessment (RN) Last Done: 06/04/18 13:56
== END 2018-06-04 15:30 | disposition home health service (06) | DRG 350 ==
LOC: ED 22:19 → SUATTDRO 05-28 03:37 → 3W 05-28 03:37

== ENCOUNTER 2019-09-22 15:26 | Inpatient (IN) ==
--- NOTE | 2019-09-22 15:56 | Emergency Department Note ---
History of Present Illness General Chief complaint: Fall Stated complaint: FALL, L HAND & L RIB PAIN Time Seen by Provider: 09/22/19 15:38 Source: patient, RN notes reviewed and old records reviewed Mode of arrival: ambulatory Limitations: no limitations History of Present Illness Maximum Pain Intensity: 10 This patient comes in after having continuing pain after suffered a mechanical fall about 2 days ago. She was seen here at the time had a CAT scan of her head neck and lumbar spine as well as chest x-ray with rib series and orthopedic x- rays. She continues to have pain along her left ribs and left side left arm and right leg. She is had no fall since then. She does live independently at home and has had a hard time getting around. She does feel a little short of breath at times due to pain. No fever or chills or exposure to COVID known. No numbness or weakness. She did not lose consciousness when she fell and has no headache at present. No neck pain. Home Medications Home Medications Medication Instructions Recorded Confirmed Type albuterol sulfate 2 puff INHALATION Q6H PRN 05/28/18 09/22/19 History aspirin 81 mg PO [id number] 05/28/18 09/22/19 History celecoxib [Celebrex] 100 mg PO DAILY PRN 05/28/18 09/22/19 History lidocaine [Lidoderm] 1 patch TOPICAL DAILY PRN 05/28/18 09/22/19 History multivitamin [Multiple Vitamins] 1 tab PO DAILY 05/28/18 09/22/19 History raloxifene 60 mg PO DAILY 05/28/18 09/22/19 History metoprolol succinate 25 mg See Rx Instructions PO TID #180 01/26/19 09/22/19 Rx tablet,extended release 24 hr tab NS simvastatin 10 mg tablet 10 mg PO HS #90 tab 03/06/19 09/22/19 Rx calcium carbonate 600 mg (1,500 2 tab PO DAILY tab 05/19/19 09/22/19 History mg)-vitamin D3 200 unit tablet amlodipine 2.5 mg tablet 2.5 mg PO DAILY #30 tab 08/14/19 09/22/19 Rx moxifloxacin 200 mg PO BID 09/21/19 09/22/19 History hydrocodone-acetaminophen 1 tab PO Q8H PRN 09/22/19 09/22/19 History mometasone [Asmanex Twisthaler] 1 inh INHALATION QPM 09/22/19 09/22/19 History Allergies Allergy/AdvReac Type Severity Reaction Status Date / Time meperidine Allergy Mild RESP ARREST Verified 09/21/19 00:16 midazolam Allergy Mild RESP ARREST Verified 09/21/19 00:16 amoxicillin Allergy Unknown FROM Verified 09/21/19 00:16 AUGMENTIN clavulanic acid Allergy Unknown Unknown Verified 09/21/19 00:16 codeine Allergy Unknown Unknown Verified 09/21/19 00:16 Penicillins Allergy Unknown Unknown Verified 09/21/19 00:16 promethazine [From Phenergan] Allergy Unknown Verified 09/21/19 00:16 latex AdvReac Intermediate Rash Verified 09/21/19 00:16 ibuprofen AdvReac Mild UPSETS HER Verified 09/21/19 00:16 STOMACH isosorbide [From Imdur] AdvReac headache Verified 09/21/19 00:16 Past Med/Surg History Medical History Acute hyponatremia (Inactive) Arrhythmia Herpes zoster History of bloody stools (Inactive) Incarcerated hernia (Inactive) femoral MAIC (mycobacterium avium-intracellulare complex) (Acute) SBO (small bowel obstruction) (Inactive) Skin cancer (melanoma) Surgical wound, non healing (Inactive) Tachycardia Takotsubo cardiomyopathy Trochanteric bursitis (Inactive) Surgical History History of appendectomy (Resolved) History of femoral hernia repair History of foot surgery History of hand surgery Hx of angioplasty Family History Mother Arthritis Diabetes Father Heart disease Hypertension Grandfather Diabetes Brother Prostate cancer Other Family history non-contributory Social History Preferred Language: Yakut Communication Ability: Effective Visual Impairment: No Limitations Orthopedic Mechanic Required: No Beliefs That Will Affect Care: None marital status: / Current Living Situation: Alone Other Information That Helps Us Care for You: No Feels Safe at Home: Yes Safety Concerns: Feels Safe At This Time Smoking Status: Never smoker Second Hand Exposure: No ; Hx Alcohol Use: No Hx Substance Use: No Review of Systems A total of 10 systems reviewed and were otherwise negative Physical Exam Vital Signs Vital Signs - 24 hr 09/22/19 15:34 Temperature 36.9 C Temperature Source Oral Pulse Rate 77 Pulse Rhythm Regular Pulse Strength Normal Respiratory Rate 18 Respiratory Effort / Characteristics Non-Labored Spontaneous Respiratory Depth Normal Respiratory Pattern Regular Blood Pressure 161/73 H Blood Pressure Mean 102 Blood Pressure Position Lying Pulse Oximetry 98 Oxygen Delivery Method Room Air Sepsis Recent Fever Within 48 Hours No Sepsis Action Taken by Nursing No Action Required General: Well developed well nourished frail older female who appears uncomfortable at times secondary to pain mostly with movement but otherwise in no acute respiratory distress, breathing comfortably on room air. Normal speech HEENT: Normal cephalic atraumatic. Pupils are equal round and reactive to lig ht. Extraocular movements are intact. Oropharynx is pink with moist mucous membranes. No swelling of the mouth lips or tongue. Neck: Supple with a midline trachea. No meningeal signs or stiffness, no JVD or bruits. No Stridor. Chest: Clear to auscultation bilaterally. No wheezes or rhonchi. No increased work of breathing. Breath sounds are equal and she has no crepitus but she is tender along the left ribs and slightly into the abdomen. Heart: Regular rate and rhythm without murmurs or gallops. Abdomen: Soft nontender, nondistended without rebound guarding or rigidity. Extremities: No cyanosis clubbing or edema. No calf tenderness or assymetry. There is a large bruise on the left hand. She has some tenderness in the right leg where she fell and was x-rayed the other day as well. Spine/Back. Non tender to palpation. No CVA tenderness Skin: Good turgor without rashes. Neurologic exam: Cranial nerves two through 12 are intact. Motor and sensation are intact and symmetrical throughout. Course Administered Medications Acetamin[facility] (Tylenol) [facility] Stop: 10/23/19 07:59 Last Admin: 09/24/19 08:38 Dose: 650 mg Documented by: [id number] Admin: 09/23/19 19:50 Dose: 650 mg Documented by: [id number] Admin: 09/23/19 15:54 Dose: 650 mg Documented by: [id number] Admin: 09/23/19 13:24 Dose: Not Given Documented by: [id number] Admin: 09/23/19 09:14 Dose: 650 mg Documented by: [id number] Amlodipine Besylate (Norvasc) 2.5 mg PO DAILY WANDA Stop: 10/23/19 08:59 Last Admin: 09/24/19 08:41 Dose: 2.5 mg Documented by: [id number] Admin: 09/23/19 09:18 Dose: 2.5 mg Documented by: [id number] Aspirin (Ecotrin Ectab) 81 mg PO MoTh@0900 WANDA Stop: 10/24/19 08:59 Last Admin: 09/24/19 08:43 Dose: 81 mg Documented by: [id number] Celecoxib (Celebrex) 100 mg PO QAM WANDA Stop: 10/23/19 08:59 Last Admin: 09/24/19 08:46 Dose: 100 mg Documented by: [id number] Admin: 09/23/19 09:47 Dose: Not Given Documented by: [id number] Diclofenac Sodium (Voltaren 1% Top) 2 gm EXT BID WANDA Stop: 10/23/19 08:59 Last Admin: 09/24/19 08:44 Dose: Not Given Documented by: [id number] Admin: 09/23/19 19:59 Dose: Not Given Documented by: [id number] Admin: 09/23/19 09:20 Dose: 2 gm Documented by: [id number] Fluticasone Furoate (Arnuity Ellipta 100mcg) 1 puffs INH QPM WANDA Stop: 10/23/19 20:59 Last Admin: 09/23/19 19:51 Dose: 1 puffs Documented by: [id number] Heparin Sodium (Porcine) (Heparin Sodium (Porcine)) 5,000 units SQ Q12 WANDA Stop: 10/23/19 08:59 Last Admin: 09/24/19 08:47 Dose: Not Given Documented by: [id number] Admin: 09/23/19 19:56 Dose: Not Given Documented by: [id number] Admin: 09/23/19 09:46 Dose: Not Given Documented by: [id number] Sodium Chloride (Nss 1000ml) 1,000 mls @ 50 mls/hr IV .Q20H WANDA Stop: 10/23/19 09:14 Last Admin: 09/24/19 04:49 Dose: 50 mls/hr Documented by: [id number] Infusion: 09/24/19 04:49 Dose: 50 mls/hr Documented by: [id number] Admin: 09/23/19 10:42 Dose: 50 mls/hr Documented by: [id number] Lidocaine (Lidoderm 5%) [facility] [place]: 10/23/19 08:59 Last Admin: 09/24/19 08:44 Dose: 1 patch Documented by: [id number] Admin: 09/23/19 09:19 Dose: 1 patch Documented by: [id number] Lidocaine (Lidoderm 5%) [facility] [place]: 10/23/19 10:14 Last Admin: 09/24/19 08:48 Dose: 1 patch Documented by: [id number] Admin: 09/23/19 11:12 Dose: 1 patch Documented by: [id number] Metoprolol Succinate (Toprol Xl) 25 mg PO QPM [facility] Stop: 10/23/19 20:59 Last Admin: 09/23/19 20:02 Dose: 25 mg Documented by: [id number] Metoprolol Succinate (Toprol Xl) 12.5 mg PO QAM [facility] Stop: 10/23/19 08:59 Last Admin: 09/24/19 08:43 Dose: 12.5 mg Documented by: [id number] Admin: 09/23/19 09:16 Dose: 12.5 mg Documented by: [id number] Metoprolol Succinate (Toprol Xl) 12.5 mg PO DAILY@1200 [facility] Stop: 10/23/19 11:59 Last Admin: 09/23/19 13:24 Dose: 12.5 mg Documented by: [id number] Miscellaneous (Remove Lidoderm Patch) 1 ea N/A DAILY@2100 [facility] Stop: 10/22/19 20:59 Last Admin: 09/23/19 19:58 Dose: 1 ea Documented by: [id number] Admin: 09/22/19 22:12 Dose: 1 ea Documented by: [id number] Miscellaneous (Order Awaiting Action) 1 ea N/A QS [facility] Stop: 10/23/19 00:00 Last Admin: 09/24/19 08:37 Dose: Not Given Documented by: [id number] Admin: 09/23/19 23:49 Dose: Not Given Documented by: [id number] Admin: 09/23/19 17:56 Dose: Not Given Documented by: [id number] Admin: 09/23/19 08:13 Dose: Not Given Documented by: [id number] Admin: 09/23/19 00:31 Dose: Not Given Documented by: [id number] Miscellaneous (Remove Lidoderm Patch) 1 ea N/A DAILY@2100 [facility] Stop: 10/23/19 20:59 Last Admin: 09/23/19 20:09 Dose: 1 ea Documented by: [id number] Multivitamins (Multivitamin Tab) 1 tab PO DAILY WANDA Stop: 10/23/19 08:59 Last Admin: 09/24/19 08:55 Dose: Not Given Documented by: [id number] Admin: 09/23/19 10:47 Dose: Not Given Documented by: [id number] Multivitamins/Minerals (Caltrate Plus) 2 tab PO DAILY WANDA Stop: 10/23/19 08:59 Last Admin: 09/24/19 08:45 Dose: 2 tab Documented by: [id number] Admin: 09/23/19 09:17 Dose: 2 tab Documented by: [id number] Nystatin (Mycostatin) 5 ml PO QID [facility] Stop: 10/03/19 12:59 Last Admin: 09/24/19 08:39 Dose: 5 ml Documented by: [id number] Admin: 09/23/19 19:57 Dose: 5 ml Documented by: [id number] Admin: 09/23/19 15:55 Dose: 5 ml Documented by: [id number] Admin: 09/23/19 13:24 Dose: 5 ml Documented by: [id number] Ondansetron HCl (Zofran Odt) 4 mg PO Q6H PRN PRN Reason: Nausea Stop: 10/22/19 23:50 Last Admin: 09/24/19 09:06 Dose: 4 mg Documented by: [id number] Admin: 09/23/19 07:31 Dose: 4 mg Documented by: [id number] Polyethylene Glycol (Miralax Powder Packet) 17 gm PO BID WANDA Stop: 10/23/19 08:59 Last Admin: 09/24/19 08:47 Dose: Not Given Documented by: [id number] Admin: 09/23/19 19:57 Dose: Not Given Documented by: [id number] Admin: 09/23/19 09:31 Dose: Not Given Documented by: [id number] Raloxifene HCl (Evista) 60 mg PO DAILY [facility] Stop: 10/23/19 08:59 Last Admin: 09/24/19 08:45 Dose: 60 mg Documented by: [id number] Admin: 09/23/19 09:47 Dose: Not Given Documented by: [id number] Simvastatin (Zocor) 10 mg PO HS WANDA Stop: 10/22/19 20:59 Last Admin: 09/22/19 22:24 Dose: 10 mg Documented by: [id number] Tapentadol (Nucynta) 50 mg PO Q4H PRN PRN Reason: Pain Stop: 10/07/19 08:58 Last Admin: 09/24/19 00:15 Dose: 50 mg Documented by: [id number] Vitamin D (Vitamin D3) 1,000 units PO QAM WANDA Stop: 10/23/19 11:29 Last Admin: 09/24/19 08:39 Dose: 1,000 units Documented by: [id number] Admin: 09/23/19 13:29 Dose: Not Given Documented by: [id number] Discontinued Medications Sodium Chloride (Nss 1000ml) 250 mls @ 999 mls/hr IV .Q16M ONE Stop: 09/22/19 18:11 Last Infusion: 09/22/19 18:49 Dose: 0 mls/hr Documented by: [id number] Admin: 09/22/19 18:33 Dose: 999 mls/hr Documented by: [id number] Acetaminophen (Ofirmev) 65 mls @ 200 mls/hr IV NOW ONE; Protocol Stop: 09/22/19 19:45 Last Admin: 09/22/19 19:53 Dose: Not Given Documented by: [id number] Ketorolac Tromethamine (Toradol) 15 mg IV NOW ONE Stop: 09/22/19 19:22 Last Admin: 09/22/19 19:27 Dose: Not Given Documented by: [id number] Metoprolol Succinate (Toprol Xl) 25 mg PO NOW STA Stop: 09/22/19 23:02 Last Admin: 09/22/19 23:23 Dose: 25 mg Documented by: [id number] Morphine Sulfate (Morphine Sulfate) 2 mg IV NOW STA Stop: 09/22/19 16:47 Last Admin: 09/22/19 17:02 Dose: 2 mg Documented by: [id number] Ondansetron HCl (Zofran) 4 mg IV NOW STA Stop: 09/22/19 19:22 Last Admin: 09/22/19 19:27 Dose: 4 mg Documented by: [id number] Oxycodone HCl (Roxicodone Immediate Rel) 5 mg PO Q4H PRN PRN Reason: Pain Stop: 10/06/19 22:32 Last Admin: 09/23/19 04:39 Dose: 5 mg Documented by: [id number] Admin: 09/22/19 23:23 Dose: 5 mg Documented by: [id number] Medical Decision Making Differential Diagnosis Differential diagnosis includes: Rib fracture, pneumothorax, infection, electrolyte or metabolic abnormality, traumatic disease, cardiac disease Medical Records Attestation: I reviewed the patient's medical records. Home Medications Current Medication List: was personally reviewed by me Laboratory Data Attestation: I reviewed the patient's lab results. Result diagrams: 09/24/19 05:51 09/24/19 05:51 Lab Results 09/22/19 09/22/19 09/22/19 Range/Units 16:50 16:50 16:50 WBC 14.88 H (4.8-10.8) K/uL RBC 3.64 L (4.2-5.4) M/uL Hgb 11.0 L (12.0-16.0) g/dL Hct 33.2 L (37-47) % MCV 91.2 (80-100) fL MCH 30.2 (25-34) pg MCHC 33.1 (32-36) g/dL RDW Std Deviation 47.7 H (36.4-46.3) fL RDW Coeff of Adeline 14.3 (11.5-14.5) % Plt Count 198 (130-400) K/uL MPV 9.8 (7.4-10.4) fL Immature Gran % (Auto) 0.3 % Neut % (Auto) 86.3 % Lymph % (Auto) 8.0 % [place] % (Auto) 5.2 % Eos % (Auto) 0.1 % Baso % (Auto) 0.1 % Immature Gran # (Auto) 0.04 H (0.00-0.02) K/uL Neut # (Auto) 12.85 H (1.4-6.5) K/uL Lymph # (Auto) 1.19 L (1.2-3.4) K/uL [place] # (Auto) 0.78 H (0.11-0.59) K/uL Eos # (Auto) 0.01 (0-0.5) K/uL Baso # (Auto) 0.01 (0-0.2) K/uL Sodium 123 L (136-145) mmol/L Potassium 4.6 (3.5-5.1) mmol/L Chloride 91 L (98-107) mmol/L Carbon Dioxide 25 (21-32) mmol/L Anion Gap 7.0 (3-11) BUN 15 (7-18) mg/dl Creatinine 0.87 (0.6-1.2) mg/dl Est Cr Clr Drug Dosing 30.8 ml/min Est GFR ( Amer) 71.4 Est GFR (Non-Af Amer) 61.6 BUN/Creatinine Ratio 17.7 (10-20) Glucose 118 H (70-99) mg/dl Osmolality 263 L (280-300) mOsm/kg Calcium 8.1 L (8.5-10.1) mg/dl Total Bilirubin 0.5 (0.2-1) mg/dl AST 18 (15-37) U/L ALT 18 (12-78) U/L Alkaline Phosphatase 65 (45-117) U/L Total Protein 6.5 (6.4-8.2) gm/dl Albumin 2.7 L (3.4-5.0) gm/dl Globulin 3.8 (2.5-4.0) gm/dl Albumin/Globulin Ratio 0.7 L (0.9-2) Lipase 96 (73-393) U/L Hepatitis C Ab Screen (Neg) 09/22/19 Range/Units 16:50 WBC (4.8-10.8) K/uL RBC (4.2-5.4) M/uL Hgb (12.0-16.0) g/dL Hct (37-47) % MCV (80-100) fL MCH (25-34) pg MCHC (32-36) g/dL RDW Std Deviation (36.4-46.3) fL RDW Coeff of Adeline (11.5-14.5) % Plt Count (130-400) K/uL MPV (7.4-10.4) fL Immature Gran % (Auto) % Neut % (Auto) % Lymph % (Auto) % [place] % (Auto) % Eos % (Auto) % Baso % (Auto) % Immature Gran # (Auto) (0.00-0.02) K/uL Neut # (Auto) (1.4-6.5) K/uL Lymph # (Auto) (1.2-3.4) K/uL [place] # (Auto) (0.11-0.59) K/uL Eos # (Auto) (0-0.5) K/uL Baso # (Auto) (0-0.2) K/uL Sodium (136-145) mmol/L Potassium (3.5-5.1) mmol/L Chloride (98-107) mmol/L Carbon Dioxide (21-32) mmol/L Anion Gap (3-11) BUN (7-18) mg/dl Creatinine (0.6-1.2) mg/dl Est Cr Clr Drug Dosing ml/min Est GFR ( Amer) Est GFR (Non-Af Amer) BUN/Creatinine Ratio (10-20) Glucose (70-99) mg/dl Osmolality (280-300) mOsm/kg Calcium (8.5-10.1) mg/dl Total Bilirubin (0.2-1) mg/dl AST (15-37) U/L ALT (12-78) U/L Alkaline Phosphatase (45-117) U/L Total Protein (6.4-8.2) gm/dl Albumin (3.4-5.0) gm/dl Globulin (2.5-4.0) gm/dl Albumin/Globulin Ratio (0.9-2) Lipase (73-393) U/L Hepatitis C Ab Screen Neg (Neg) Imaging Data Radiologist's Impression: CT of abd/pelvis and Chest w/o contrast 1. Nondisplaced left lateral seventh rib fracture. No pneumothorax. 2. Chronic changes within the chest as described above including scattered tree-in-bud nodular opacities and bronchiectasis. The small peripheral areas of consolidation within the right lung and the tree-in-bud nodular opacities have slightly progressed. 3. Small bilateral pleural effusions and a small pericardial effusion. 4. No acute traumatic abdomen within the abdomen or pelvis. 5. Additional findings as described above. ECG Data Attestation: I personally reviewed and interpreted this ECG as follows: Indication: + chest pain Rate (beats per minute): 82 Rhythm: + normal sinus ECG Intervals/blocks: + Normal QRS and + Normal QT ECG [place]: + Normal ECG ST segments: + Normal ST segments ECG Findings: + Poor R wave progression; no PACs and no PVCs Comparison ECG Date: from (05/27/18) Change: no significant change Blood Pressure Blood Pressure Findings: Normal blood pressure Blood Pressure Disposition: did not require urgent referral MDM Narrative This patient comes in as described above she suffered a mechanical fall injuring her ribs among other injuries about 2 days ago. She does have a complex long history with COPD and MAIC. In light of this, I did order a CT of her chest as well as the abdomen without contrast. IV access was established, multiple blood testing was obtained, EKG was obtained. I reviewed her old records. Her EKG does not suggest ischemia. She appears very uncomfortable secondary to pain especially when moving. I did review her records she has had morphine before she was given a small dose of just 2 mg IV. With this I was able obtain a CAT scan of her chest and abdomen. Her white count is mildly elevated and she is currently on Avelox for her pulmonary infections unrelated to her fall. Her sodium also came back significantly low at 123. It is possible that this is causing her to be weak as well or have her symptoms. Given her low sodium, I think that in itself would be indication for admission/observation. Additionally on her CAT scan, she has a rib fracture on her left. She was feeling nauseated secondary the pain and possibly the morphine and was given Zofran 4 mg IV. I also ordered IV Tylenol but gave her a smaller dose given her low weight. I did talk to her son at length on the telephone who is a physician and he agrees with the plan. I am concerned about sending her home with her pain management and due to the fact that she has underlying lung issues and a rib fracture as well. I have consulted the [facility] hospitalist to see her in the ER for these measures. Continuous cardiac monitoring: An order was placed for continuous cardiac monitoring. She was noted to be in normal sinus rhythm with a rate of 77 on my evaluation initially. Impression & Plan Acute hyponatremia, Chest pain, COPD (chronic obstructive pulmonary disease), MAIC (mycobacterium avium-intracellulare complex), Fracture of rib, Weakness Discharge Plan Visit Data *Final* Discharge Date/Time: 09/22/19 20:20 Chief Complaint: Fall Stated Complaint: FALL, L HAND & L RIB PAIN ED Provider: Samir Barahona Discharge Problem: Acute hyponatremia, Chest pain, COPD (chronic obstructive pulmonary disease), MAIC (mycobacterium avium-intracellulare complex), Fracture of rib, Weakness Patient Disposition: Admitted As Inpatient Discharge Instructions Interventions: ED Discharge Assessment Last Done: 09/22/19 20:20 Discharge Problem: Chest pain Qualifiers: Chest pain type: unspecified Qualified Code(s): R07.9 - Chest pain, unspecified COPD (chronic obstructive pulmonary disease) Qualifiers: COPD type: unspecified COPD Qualified Code(s): J44.9 - Chronic obstructive pulmonary disease, unspecified Fracture of rib Qualifiers: Encounter type: initial encounter Rib fracture type: single rib Fracture type: closed Laterality: left Qualified Code(s): S22.32XA - Fracture of one rib, left side, initial encounter for closed fracture
[2019-09-22] MEDS ORDERED: MoRPHine SULFATE 2 MG/ML CARP IV STA (16:46)
[2019-09-22 17:04] LABS: Basophils # (auto) 0.01 K/uL (0-0.2); Basophils % (auto) 0.1 %; Eosinophils # (auto) 0.01 K/uL (0-0.5); Eosinophils % (auto) 0.1 %; Hematocrit (blood only) 33.2 % (37-47); Immature Granulocytes # (auto) 0.04 K/uL (0.00-0.02); Immature Granulocytes % (auto) 0.3 %; Lymphocytes # (auto) 1.19 K/uL (1.2-3.4); Mean Corpuscular Hemoglobin 30.2 pg (25-34); Mean Corpuscular Hgb Conc 33.1 g/dL (32-36); Mean Corpuscular Volume 91.2 fL (80-100); Mean Platelet Volume 9.8 fL (7.4-10.4); Monocytes # (auto) 0.78 K/uL (0.11-0.59); Monocytes % (auto) 5.2 %; Neutrophils # (auto) 12.85 K/uL (1.4-6.5); Neutrophils % (auto) 86.3 %; Platelet Count 198 K/uL (130-400); RDW Coefficient of Variation 14.3 % (11.5-14.5); RDW Standard Deviation 47.7 fL (36.4-46.3); Red Blood Count 3.64 M/uL (4.2-5.4); White Blood Count 14.88 K/uL (4.8-10.8)
[2019-09-22 17:24] LABS: Albumin Level 2.7 gm/dl (3.4-5.0); BUN Creatinine Ratio 17.7 (10-20); Calcium 8.1 mg/dl (8.5-10.1); Creatinine Clr Calc Pharmacy 30.8 ml/min; Est GFR (African American) 71.4; Est GFR (Non-African American) 61.6; Potassium 4.6 mmol/L (3.5-5.1)
[2019-09-22 17:27] LABS: Albumin Globulin Ratio 0.7 (0.9-2); Bilirubin,Total 0.5 mg/dl (0.2-1); Globulin 3.8 gm/dl (2.5-4.0); Total Protein 6.5 gm/dl (6.4-8.2)
--- NOTE | 2019-09-22 17:42 | CT Scan Report ---
CT chest wo con, CT abd pelvis wo con CT DOSE: 620.69 mGy.cm HISTORY: Left-sided chest and abdominal pain. Fall. TECHNIQUE: Multiaxial CT images of the chest, abdomen, pelvis were performed without contrast. A dos e lowering technique was utilized adhering to the principles of ALARA. COMPARISON: Chest CT 11/03/2018. Abdomen and pelvis CT 05/27/2018. FINDINGS: Chest CT: Nondisplaced left lateral seventh rib fracture. No pneumothorax. Chronic pleural-parenchyma l scarring with scattered tree-in-bud nodular opacities and right middle lobe/lingular bronchiectasis persists. No change in the 11 mm spiculated lesion within the left lower lobe on image 167. Small mu ltifocal areas of peripheral consolidation within the right lung and the tree-in-bud nodular opacitie s have slightly progressed. A few scattered punctate calcified granulomas. Small amount of mucoid mat erial within the trachea. There are small bilateral pleural effusions. The heart remains mildly enlar ged. Small pericardial effusion. No mediastinal or hilar lymphadenopathy. There is a pectus excavatum deformity. The thoracic aorta is normal in caliber containing mild calcified plaque. No mediastinal hematoma. Abdomen/pelvis CT: No pneumoperitoneum. No pneumatosis. No acute fractures within the abdomen or pelv is. The unenhanced liver, spleen, adrenal glands, and pancreas are unremarkable. Small stone/minerali zation within the upper pole the right kidney. No hydronephrosis. The bladder is unremarkable. Mild p elvic floor collapse. The uterus and adnexa are unremarkable. Small amount of pelvic free fluid. Harrington dionicio diverticulosis. No evidence for diverticulitis. Overall, there is suboptimal evaluation for bowel pathology due to the lack of intravenous and oral contrast. However, there is no definite bowel wall thickening or obstruction. There is suggestion of sludge within the gallbladder. No gallbladder wall thickening. No retroperitoneal lymphadenopathy or hematoma. Mild calcified plaque within the normal caliber abdominal aorta. Surgical clips within the right inguinal region. IMPRESSION: 1. Nondisplaced left lateral seventh rib fracture. No pneumothorax. 2. Chronic changes within the chest as described above including scattered tree-in-bud nodular opacit ies and bronchiectasis. The small peripheral areas of consolidation within the right lung and the rand e-in-bud nodular opacities have slightly progressed. 3. Small bilateral pleural effusions and a small pericardial effusion. 4. No acute traumatic abdomen within the abdomen or pelvis. 5. Additional findings as described above. ACT 112: Negative or not required by law. Electronically signed by: Roger Selby M.D. 09/22/2019 5:41 PM
[2019-09-22] MEDS ORDERED: SODIUM CHLORIDE 0.9% 1000ML 250 ML IV ONE (17:56)
--- NOTE | 2019-09-22 18:37 | History & Physical Report ---
Date of Service September 22, 2019 Assessment & Plan (1) Acute hyponatremia: Unclear cause but similar episode associated with incarcerated right inguinal hernia last year which resolved with IV fluids. Patient clearly hypovolemic at this time. Possible high-fluid, low-protein diet although labs below would not suggest this. ?related to fall with cerebral salt wasting although appropriately low urine sodium does not suggest this. Urine Na 24, osm 186. Serum Na 123, osm 263; suggest extra-renal losses ?GI. Given unclear cause will get AM cortisol and TSH Continue to trend Na with NSS started in ER. (2) Generalized pain: Mainly back. Reassuring Lumbar spine CT for no acute fractures. I suspect her main issue is generalized immobility since her fall on the back ground of 75 years of rheumatoid arthritis degenerative disease. Given time sensitive to get her moving again and severe pain noted by patient will consult pain management. Acetaminophen 650mg Q4HWA Celebrex 100mg PO daily (she takes this outpatient and appears to work well without gastritis) Oxycodone 5mg Q4H for more severe pain. (3) Leukocytosis: No significant infective etiology noted pending UA. Slight progression of bronchiectasis changes for which she is taking moxifloxacin as outpatient but no significant cough endorsed by patient. Suspect just secondary to fall but will continue to trend. (4) Left rib fracture: Certainly partly contributing to her pain. Incentive spirometry (5) Constipation: Secondary to recent opiate use from pain. No BM for 3 days. No fecal impaction or obstruction noted on CT. Start MiraLAX BID. (6) HTN (hypertension): Continue metoprolol succinate home dosing (12.5mg QAM and midday, 25mg QPM) Amlodipine 2.5mg PO daily (7) Obstructive sleep apnea: Not on CPAP. Monitor for nocturnal hypoxia. (8) Rheumatoid arthritis: Severe degenerative changes consisted with this diagnosis in both hands and feet. No current acute flare noted on exam. (9) Bronchiectasis: Mildly progressed from prior as per CT. Unclear diagnosis for recent prescription of moxifloxacin use but will continue this pending discussion with her PCP. Repeated dose also noted in April. (10) Severe protein-calorie malnutrition: Consult dietary (11) HLD (hyperlipidemia): Will hold simvastatin given significant muscular pain at present (12) Gastro-esophageal reflux disease with esophagitis: Noted history of this. Mild epigastric pain on palpation but also having pain everywhere. Will continue off medications at present but monitor closely with celebrex use. (13) Asthma: Continue outpatient maintenance inhalers No acute exacerbation (14) Osteoporosis: Presumed diagnosis for which she takes raloxifene. Will get vitamin D level in AM in case inadequate intake is causing this medication to cause arthralgias. (15) History of GRANT infection: Noted history of this with possible future workup planned with Dr Mckay. (16) DVT prophylaxis: Heparin 5000 units SQ BID History of Present Illness Chief Complaint: Generalized pain Primary Care Provider: Kuldip Mckay MD [place] is an 84 year old with rheumatoid arthritis who presents to the ER after continued progressive pain since her fall a day previously. She endorses prior history from ER note of trying to close upper vents while standing on stool and slipping and falling onto her left side. She denies any worsening headache, dizziness, vision changes since then. She has pain all over her body but mainly is concerned about her lumbar back pain. No radiation. Severity 10/10 on any movement. No fall since this one. Despite her clear rheumatoid arthritis changes she usuall lives very independantly (daughter lives next door) and uses no mobility aids, does all her cooking and finances. She defers to her son to make most of her medical decisions however. She does not think she has had a BM since her fall. Discussed with her son by patient request who is a pathologist and although he does live with her they talk daily. He reports a slight change in her mother's mental state which he relates to her taking opiates recently prescribed for her pain. Allergies Allergy/AdvReac Type Severity Reaction Status Date / Time meperidine Allergy Mild RESP ARREST Verified 09/21/19 00:16 midazolam Allergy Mild RESP ARREST Verified 09/21/19 00:16 amoxicillin Allergy Unknown FROM Verified 09/21/19 00:16 AUGMENTIN clavulanic acid Allergy Unknown Unknown Verified 09/21/19 00:16 codeine Allergy Unknown Unknown Verified 09/21/19 00:16 Penicillins Allergy Unknown Unknown Verified 09/21/19 00:16 promethazine [From Phenergan] Allergy Unknown Verified 09/21/19 00:16 latex AdvReac Intermediate Rash Verified 09/21/19 00:16 ibuprofen AdvReac Mild UPSETS HER Verified 09/21/19 00:16 STOMACH isosorbide [From Imdur] AdvReac headache Verified 09/21/19 00:16 Home Medications Home Medications Medication Instructions Recorded Confirmed Type albuterol sulfate 2 puff INHALATION Q6H PRN 05/28/18 09/22/19 History aspirin 81 mg PO 2XWK 05/28/18 09/22/19 History celecoxib [Celebrex] 100 mg PO DAILY PRN 05/28/18 09/22/19 History lidocaine [Lidoderm] 1 patch TOPICAL DAILY PRN 05/28/18 09/22/19 History multivitamin [Multiple Vitamins] 1 tab PO DAILY 05/28/18 09/22/19 History raloxifene 60 mg PO DAILY 05/28/18 09/22/19 History metoprolol succinate 25 mg See Rx Instructions PO TID #180 01/26/19 09/22/19 Rx tablet,extended release 24 hr tab NS simvastatin 10 mg tablet 10 mg PO HS #90 tab 03/06/19 09/22/19 Rx calcium carbonate 600 mg (1,500 2 tab PO DAILY tab 05/19/19 09/22/19 History mg)-vitamin D3 200 unit tablet amlodipine 2.5 mg tablet 2.5 mg PO DAILY #30 tab 08/14/19 09/22/19 Rx moxifloxacin 200 mg PO BID 09/21/19 09/22/19 History hydrocodone-acetaminophen 1 tab PO Q8H PRN 09/22/19 09/22/19 History mometasone [Asmanex Twisthaler] 1 inh INHALATION QPM 09/22/19 09/22/19 History Past Med/Surg History Medical History Acute hyponatremia (Inactive) Arrhythmia Herpes zoster History of bloody stools (Inactive) Incarcerated hernia (Inactive) femoral MAIC (mycobacterium avium-intracellulare complex) (Acute) SBO (small bowel obstruction) (Inactive) Skin cancer (melanoma) Surgical wound, non healing (Inactive) Tachycardia Takotsubo cardiomyopathy Trochanteric bursitis (Inactive) Surgical History History of appendectomy (Resolved) History of femoral hernia repair History of foot surgery History of hand surgery Hx of angioplasty Family History Mother Arthritis Diabetes Father Heart disease Hypertension Grandfather Diabetes Brother Prostate cancer Other Family history non-contributory Social History Preferred Language: Latvian Communication Ability: Effective Visual Impairment: No Limitations Wireworker Required: No Beliefs That Will Affect Care: None marital status: / Current Living Situation: Alone Other Information That Helps Us Care for You: No Feels Safe at Home: Yes Safety Concerns: Feels Safe At This Time Smoking Status: Never smoker Second Hand Exposure: No ; Hx Alcohol Use: No Hx Substance Use: No Review of Systems Review of Systems: All systems reviewed & are unremarkable except as noted in HPI & below Physical Exam Constitutional: + acute distress (pain) and + frail appearing; + not well nourished and no altered mental status Eyes: PERRL, conjunctivae normal, anicteric sclerae ENMT: Ears: + hearing impairment; no external ear abnormality Nose: no external nose abnormality Mouth: + dry oral mucous membranes Neck: trachea midline, no thyromegaly Respiratory: normal respiratory effort, lungs clear to auscultation Cardiovascular: RRR, no murmur, no edema Gastrointestinal (Abdomen): Inspection/Auscultation: normal bowel sounds; abdomen not distended Percussion/Palpation: + abdomen tender (generalized on deep palpation) and abdomen soft; no guarding and abdomen not rigid Musculoskeletal: Head/Neck/Chest: + chest tenderness (left sided) Spine: + pain with thoraco-lumbar ROM, + paraspinal tenderness (generalized lumbar spine) and + straight leg raise positive (b/l causing back pain) Extremities: strength 5/5 throughout (difficult to assess given pain with any gross movement but no foot drop b/l) Skin: no rashes, warm and dry Trauma: + contusion (left hand) Neurologic: moves all extremities and awake; no focal motor deficits and not confused Speech / Cognition: normal speech Motor/Sensory: no tremor and no pronator drift Psychiatric: Orientation: alert and oriented x 3 Affect: euthymic affect Results & Data Results & Data ([facility]) Vital Signs (Past 12 Hours) Vital Signs Temp Pulse Pulse Resp BP BP Pulse Ox 09/22/19 18:00 82 16 150/76 H 91 09/22/19 15:34 36.9 C 77 18 161/[address] chest wo con, CT abd pelvis wo con IMPRESSION: 1. Nondisplaced left lateral seventh rib fracture. No pneumothorax. 2. Chronic changes within the chest as described above including scattered tree-in-bud nodular opacities and bronchiectasis. The small peripheral areas of consolidation within the right lung and the tree-in-bud nodular opacities have slightly progressed. 3. Small bilateral pleural effusions and a small pericardial effusion. 4. No acute traumatic abdomen within the abdomen or pelvis. 5. Additional findings as described above. 6. No change in the 11 mm spiculated lesion within the left lower lobe. ECG Indication: chest pain Rate (beats per minute): 82 Rhythm: normal sinus Findings: no acute ischemic change Comparison ECG Date: from (05/27/2018) Change: the following changes noted (ST depression resolved in lateral leads) Code Status & VTE Plan Code Status Full (discussion deferred to son by patient who wishes her to be for full resuscitation at present) VTE Prophylaxis Plan VTE Prophylaxis will be ordered: Yes PG Care Time/CCT Total # of Minutes Spent Total Time Spent with Patient: Total time spent is greater than 50% in coordination of care (as documented) at patient's floor/unit and/or counseling patient: Coding Level of Care Code 50328 Initial Inpt Care Lvl 3 Diagnoses Acute hyponatremia E87.1 Generalized pain R52 Leukocytosis D72.829 Left rib fracture S22.32XA Constipation K59.00 HTN (hypertension) I10 Hypertension type: essential hypertension Obstructive sleep apnea G47.33 Rheumatoid arthritis M06.9 Bronchiectasis J47.9 Severe protein-calorie malnutrition E43 HLD (hyperlipidemia) E78.5 Gastro-esophageal reflux disease with esophagitis K21.0 Asthma J45.909 Osteoporosis M81.0 History of GRANT infection Z86.19 DVT prophylaxis Z29.9 (1) HTN (hypertension) Hypertension type: essential hypertension Qualified Code(s): I10 - Essential (primary) hypertension
[2019-09-22] MEDS ORDERED: ONDANSETRON INJ 2 MG/ML 2 ML VIAL IV STA (19:21)
[2019-09-22] MEDS ORDERED: KETOROLAC TROMETHAMINE 15 MG/ML VIAL IV ONE (19:21)
[2019-09-22] MEDS ORDERED: ACETAMINOPHEN 65 ML IV ONE (19:26)
[2019-09-22 20:33] LABS: Appearance Urine Clear (Clear); Bilirubin Urine Negative (Negative); Blood Urine Negative (Negative); Color Urine Yellow; Glucose Urine UA Negative (Negative); Ketones Urine Trace (Negative); Leukocyte Esterase Urine Negative (Negative); Nitrite Urine Negative (Negative); Protein Urine Negative (Negative); Specific Gravity Urine 1.008 (1.000-1.030); Urobilinogen Urine Negative (Negative); pH Urine 6.5 (4.5-7.5)
[2019-09-22 20:50] LABS: Creatinine Urine Random 30.7 mg/dl
[2019-09-22] MEDS ORDERED: LIDOCAINE 5% 1 PATCH TD PRN (20:57)
[2019-09-22] MEDS ORDERED: SIMVASTATIN 10 MG TAB PO SCH (21:00)
[2019-09-22] MEDS ORDERED: ONDANSETRON INJ 2 MG/ML 2 ML VIAL IV PRN (22:28)
[2019-09-22] MEDS ORDERED: METOPROLOL SUCC 25MG EXT REL TAB PO STA (23:01)
[2019-09-22 23:17] LABS: BUN Creatinine Ratio 14.5 (10-20); Calcium 8.5 mg/dl (8.5-10.1); Creatinine Clr Calc Pharmacy 30.9 ml/min; Est GFR (African American) 75.6; Est GFR (Non-African American) 65.2; Potassium 4.5 mmol/L (3.5-5.1)
[2019-09-22] MEDS: OXYCODONE HCL IR 5 MG TAB (IMMEDIATE RELEASE) PO PRN (23:23)
[2019-09-23] MEDS: OXYCODONE HCL IR 5 MG TAB (IMMEDIATE RELEASE) PO PRN (04:39)
[2019-09-23 07:30] LABS: Basophils # (auto) 0.01 K/uL (0-0.2); Basophils % (auto) 0.1 %; Hematocrit (blood only) 35.1 % (37-47); Hemoglobin 11.4 g/dL (12.0-16.0); Immature Granulocytes # (auto) 0.06 K/uL (0.00-0.02); Immature Granulocytes % (auto) 0.4 %; Lymphocytes # (auto) 0.86 K/uL (1.2-3.4); Mean Corpuscular Hgb Conc 32.5 g/dL (32-36); Mean Corpuscular Volume 92.4 fL (80-100); Monocytes # (auto) 0.77 K/uL (0.11-0.59); Monocytes % (auto) 5.4 %; Neutrophils # (auto) 12.58 K/uL (1.4-6.5); Neutrophils % (auto) 88.1 %; Platelet Count 188 K/uL (130-400); RDW Coefficient of Variation 14.4 % (11.5-14.5); RDW Standard Deviation 48.2 fL (36.4-46.3); White Blood Count 14.28 K/uL (4.8-10.8)
[2019-09-23] MEDS: ONDANSETRON 4 MG OD TAB PO PRN (07:31)
[2019-09-23 08:06] LABS: Albumin Level 2.7 gm/dl (3.4-5.0); BUN Creatinine Ratio 14.6 (10-20); Calcium 8.3 mg/dl (8.5-10.1); Creatinine Clr Calc Pharmacy 29.1 ml/min; Est GFR (African American) 70.4; Est GFR (Non-African American) 60.8; Potassium 4.7 mmol/L (3.5-5.1)
[2019-09-23 08:16] LABS: Albumin Globulin Ratio 0.7 (0.9-2); Bilirubin,Total 0.5 mg/dl (0.2-1); Globulin 4.1 gm/dl (2.5-4.0); Thyroid Stimulating Hormone 2.89 uIu/ml (0.300-4.500); Total Protein 6.9 gm/dl (6.4-8.2)
--- NOTE | 2019-09-23 09:05 | Pain Management Consultation ---
Date of Consultation September 23, 2019 Assessment & Plan (1) Left rib fracture: Present on Admission?: Yes (2) Generalized pain: Present on Admission?: Yes (3) Rheumatoid arthritis: Present on Admission?: Yes (4) Constipation: Present on Admission?: Yes (5) Cervicalgia: * Patient has multilevel pain complaints currently predominantly associated with axial cervicothoracic junction and left chest wall with no evidence of fracture of the cervical region per CT but there was evidence of a left seventh rib fracture. Treatment options discussed. Patient appears to be having difficulty tolerating oxycodone. Will discontinue oxycodone and initiate Nucynta 50 mg every 4 hours as needed breakthrough pain. Titration pending response. * Continue with Lidoderm patch applied to the left chest wall * Continue Celebrex 100 mg every morning with consideration of short-term twice daily dosing * Patient is a poor candidate for interventional procedures at this time * Will continue to follow Present on Admission?: Yes History of Present Illness Reason for Consultation: Back pain and left chest wall pain Requesting Physician: Nelson Cortez MD Attending Physician: Jairo Perez MD History of Present Illness Mrs. Austin is a 84-year-old white female who was admitted due to a recent fall with acute hyponatremia and complaints of generalized pain in the neck and back as well as left chest wall pain with a known left rib fracture on top of history of chronic severe degenerative rheumatoid arthritis. Patient reportedly suffered a mechanical fall approximately 2-3 days ago. She underwent extensive imaging at time of presentation with no acute cervical or lumbar spine fracture per CT with discovery of a left first MCP joint fracture and a left lateral seventh rib fracture. Patient is complaining of pain in the left lateral chest wall and base of her neck currently as her predominant complaints. The patient does have ongoing chronic pain involving her hands and feet related to severe erosive rheumatoid arthritis. She does utilize Celebrex in the outpatient setting sparingly due to concerns over cardiac related side effects per her report. The patient has been utilizing oxycodone 5 mg upon this admission with last dose this morning at 0439. The patient appears to be somewhat sedate and very slow to answer questions during today's visit. The patient denies any radicular pattern to her pain complaints. She reports increased discomfort with movement of the head and neck in the mid cervicothoracic junction with some extension towards the shoulders. She reports the left lateral chest wall pain is increased with movement and any deep breathing. She denies abdominal pain. She has no lumbar radicular pattern pain complaints. She reports minimal axial low back pain at today's visit. She denies abdominal pain or fullness although has reportedly been constipated over the past few days. Patient has no further constitutional complaints. Plan of care discussed with Dr. Adeola Eaton. Pain Assessment Pain scale - at its best (0-10): 5 Pain scale - at its worst (0-10): 10 Allergies Allergy/AdvReac Type Severity Reaction Status Date / Time meperidine Allergy Mild RESP ARREST Verified 09/21/19 00:16 midazolam Allergy Mild RESP ARREST Verified 09/21/19 00:16 amoxicillin Allergy Unknown FROM Verified 09/21/19 00:16 AUGMENTIN clavulanic acid Allergy Unknown Unknown Verified 09/21/19 00:16 codeine Allergy Unknown Unknown Verified 09/21/19 00:16 Penicillins Allergy Unknown Unknown Verified 09/21/19 00:16 promethazine [From Phenergan] Allergy Unknown Verified 09/21/19 00:16 latex AdvReac Intermediate Rash Verified 09/21/19 00:16 ibuprofen AdvReac Mild UPSETS HER Verified 09/21/19 00:16 STOMACH isosorbide [From Imdur] AdvReac headache Verified 09/21/19 00:16 Home Medications Home Medications Medication Instructions Recorded Confirmed Type albuterol sulfate 2 puff INHALATION Q6H PRN 05/28/18 09/22/19 History aspirin 81 mg PO 2XWK 05/28/18 09/22/19 History celecoxib [Celebrex] 100 mg PO DAILY PRN 05/28/18 09/22/19 History lidocaine [Lidoderm] 1 patch TOPICAL DAILY PRN 05/28/18 09/22/19 History multivitamin [Multiple Vitamins] 1 tab PO DAILY 05/28/18 09/22/19 History raloxifene 60 mg PO DAILY 05/28/18 09/22/19 History metoprolol succinate 25 mg See Rx Instructions PO TID #180 01/26/19 09/22/19 Rx tablet,extended release 24 hr tab NS simvastatin 10 mg tablet 10 mg PO HS #90 tab 03/06/19 09/22/19 Rx calcium carbonate 600 mg (1,500 2 tab PO DAILY tab 05/19/19 09/22/19 History mg)-vitamin D3 200 unit tablet amlodipine 2.5 mg tablet 2.5 mg PO DAILY #30 tab 08/14/19 09/22/19 Rx moxifloxacin 200 mg PO BID 09/21/19 09/22/19 History hydrocodone-acetaminophen 1 tab PO Q8H PRN 09/22/19 09/22/19 History mometasone [Asmanex Twisthaler] 1 inh INHALATION QPM 09/22/19 09/22/19 History Pain History Pain Location Full Body Front + Back: 1. Left posterior lateral chest wall 2. Left lateral anterior chest wall 3. Mid-line cervicothoracic junction Pain Intensity Pain scale - at its best (0-10): 5 Pain scale - at its worst (0-10): 10 Character Pain character: aching, burning and sharp Activity Factors Exacerbated by: lying in bed Functional Limitations [facility] Combined Function Scale: 7-Severe Limitations - Minimal cho res. Needs help 70% of the time. Patient History Medical History Acute hyponatremia (Inactive) Arrhythmia Herpes zoster History of bloody stools (Inactive) Incarcerated hernia (Inactive) femoral MAIC (mycobacterium avium-intracellulare complex) (Acute) SBO (small bowel obstruction) (Inactive) Skin cancer (melanoma) Surgical wound, non healing (Inactive) Tachycardia Takotsubo cardiomyopathy Trochanteric bursitis (Inactive) Surgical History History of appendectomy (Resolved) History of femoral hernia repair History of foot surgery History of hand surgery Hx of angioplasty Family History Mother Arthritis Diabetes Father Heart disease Hypertension Grandfather Diabetes Brother Prostate cancer Other Family history non-contributory Social History Preferred Language: Iraqi Communication Ability: Effective Visual Impairment: No Limitations Milk Treater Required: No Beliefs That Will Affect Care: None marital status: / Current Living Situation: Alone Other Information That Helps Us Care for You: No Feels Safe at Home: Yes Safety Concerns: Feels Safe At This Time Smoking Status: Never smoker Second Hand Exposure: No ; Hx Alcohol Use: No Hx Substance Use: No Physical Exam Physical Exam: General: Patient oriented to person and place, but not time. Patient sitting quietly in exam room in no acute distress. Patient extremely slow to answer questions in sedate throughout the visit. Patient extremely thin and frail. Head: Normocephalic and atraumatic. ENT: No evidence of nasal or oral mucosal lesions. Mucous membranes are moist. Eyes: Pupils equal round reactive to light. Neck: Supple without adenopathy. Limited range of motion in all planes. No focal midline tenderness. Minimally tender in the paravertebral musculature and proximal trapezius. No focal facet joint tenderness. No palpable step-off. Upper extremities: Significant joint deformities of the hands bilaterally with thickening of the joints and significant muscular atrophy/wasting. Patient has ecchymosis over the left wrist and hand. Chest: Nontender to palpation of the costosternal junction. Patient is tender along the posterior lateral and anterior chest wall on the left at approximate level of the seventh-eighth rib. Patient is moderately tender with AP and lateral compression of the left chest wall. Abdomen: Soft and nondistended. No organomegaly. Bowel sounds active. Back/spine: Patient with some generalized tenderness over the lumbosacral junction which is nonfocal to the midline, facet joint or SI joints. Lower extremities: Patient with 4/5 strength with plantar flexion. Sensation was intact distally. No edema is appreciated. Neurologic: Cranial nerves grossly intact. Ambulatory function not witnessed. Results Diagnostic Review CT: non enhanced and reports reviewed CT Findings: [place], [place] [phone] CT Scan Report Patient: DENIS MONTEJO Date: 09/20/19 MR#: [id number]: [facility]7 [facility] Acct ID:[id number]: [facility] 1935[facility] Zip[facility] [place] [address] Age: 84Location: ED Sex: F Room/Bed: Att Phy:Diagnosis: FALL Tere Phy: Kuldip Mckay MDService Date: 09/21/19 Fam Phy:Interpreting Phy: Aj Bettencourt MD Admit Phy: Ordering Phy: Senia Kearney DO cc: ~ CT cervical spine wo con CLINICAL HISTORY: 84 years-old Female presenting with trauma. TECHNIQUE: Multidetector CT of the cervical spine was performed without the use of intravenous contrast. IV contrast: None. One or more dose lowering techniques were used consistent with the principles of ALARA (as low as reasonably achievable), including automatic exposure control, mA or kV adjustment to individual patient size, and/or use of iterative reconstruction. COMPARISON: None. CT DOSE (mGy.cm): The estimated cumulative dose is 1449.03. FINDINGS: [employer] Intern topogram: Unremarkable. 2 mm of grade 1 anterolisthesis of C4 on C5 likely on a degenerative basis. Trace anterolisthesis of C7 on T1. Straightening of normal cervical lordosis likely due to multilevel degenerative changes. Vertebral bodies otherwise maintain normal height and alignment. Multilevel intervertebral disc height loss, which is severe at C5-6 and C6-7, where there is the greatest degree of degenerative change. Disc osteophyte complexes at these levels results in mild osseous spinal canal narrowing. Evaluation of the soft tissues of the spinal canal does not demonstrate further effacement. Osseous fusion of C1 to on the left noted. Mild facet arthropathy and uncovertebral hypertrophy result in very degrees of osseous neural foraminal narrowing greatest on the left at C6-7. No acute fracture or subluxation. Visualized portion of the skull base intact. Paraspinal soft tissues within normal limits. Atherosclerosis. Pleural parenchymal scarring at the lung apices. IMPRESSION: 1. No acute or osseous injury of the cervical spine. 2. Multilevel degenerative changes. ACT 112: Negative or not required by law. Electronically signed by: Aj Bettencourt M.D. 09/21/2019 5:59 AM Dictated: 09/21/1954 Transcribed: 09/21/19553 [phone] Scan Report Patient: DENIS MONTEJO Date: 09/20/19 MR#: [id number]: [address] [facility] Acct ID:[id number]: Date: 1935City Zip: [place] [address] Age: 84Location: ED Sex: F Room/Bed: Att Phy:Diagnosis: FALL Tere Phy: Kuldip Mckay, Shruthiice Date: 09/21/19 Fam Phy:Interpreting Phy: Aj Bettencourt MD Admit Phy: Ordering Phy: Senia Kearney DO cc: ~ CT head/brain wo con CLINICAL HISTORY: 84 years-old Female presenting with trauma, left-sided injury. TECHNIQUE: Multidetector CT imaging of the head was performed without the use of intravenous contrast. IV contrast: None. One or more dose lowering techniques were used consistent with the principles of ALARA (as low as reasonably achievable), including automatic exposure control, mA or kV adjustment to individual patient size, and/or use of iterative reconstruction. COMPARISON: 10/13/2008. CT DOSE (mGy.cm): The estimated cumulative dose is 1449.03 mGy.cm. FINDINGS: [employer] Intern topogram: Unremarkable. Proportional ventricular and sulcal prominence, likely age-related parenchymal volume loss. No hemorrhage. Brain parenchyma normal in appearance with preserved cowart-white differentiation. No acute territorial infarct. No mass effect or midline shift. No extra-axial fluid collection. Paranasal sinuses and mastoid air cells clear. Calvarium intact. IMPRESSION: 1. No acute intracranial abnormality. ACT 112: Negative or not required by law. Electronically signed by: Aj Bettencourt M.D. 09/21/2019 5:54 AM Dictated: 09/21/19550 Transcribed: 09/21/19550 [phone] CT Scan Report Patient: DENIS MONTEJO Date: 09/20/19 MR#: [id number]: [address] [place] [address] Acct ID:[id number]: Date: 1935[facility] Zip: [place] [address] Age: 84Location: ED Sex: F Room/Bed: Att Phy:Diagnosis: FALL Tere Phy: Kuldip Mckay, MDService Date: 09/21/19 David Phy:Interpreting Phy: Aj Bettencourt MD Admit Phy: Ordering Phy: Senia Kearney DO cc: ~ CT lumbar spine wo con CLINICAL HISTORY: 84 years-old Female presenting with trauma, low back pain. TECHNIQUE: Multidetector CT of the lumbar spine was performed without the use of intravenous contrast. IV contrast: None. One or more dose lowering techniques were used consistent with the principles of ALARA (as low as reasonably achievable), including automatic exposure control, mA or kV adjustment to individual patient size, and/or use of iterative reconstruction. COMPARISON: None. CT DOSE (mGy.cm): The estimated cumulative dose is 212.38 mGy.cm. FINDINGS: Promotions Intern topogram: Unremarkable. 10 mm of grade 2 anterolisthesis of L4 on L5. Osteopenia. S-shaped scoliotic curvature with dextroscoliosis at L1-2 and levoscoliosis at L4-5. This appearance is in part due to right lateral translation of L2 on L3 and L3 on L4. Vertebral bodies maintain normal height. Multilevel intervertebral disc height loss, severe at L4-5. Evaluation of the soft tissues of the spinal canal demonstrates moderate disc bulge at L1-2 with spinal canal effacement. Anterolisthesis largely results in moderate to severe spinal canal stenosis at L4-5. Mild disc bulges at the remaining lumbar levels. Ilqp-jr-qywrjtup neural foraminal narrowing bilaterally at L3-4 and moderate to severe at L4-5. Extensive facet arthropathy with a lower lumbar predominance. No acute fracture or acute subluxation. Visualized portion of the sacrum intact. Atherosclerosis. Paraspinal musculature within normal limits for age. Extrarenal pelvis is noted without convincing evidence of hydronephrosis. Trace fluid in the peritoneal cavity may be present. IMPRESSION: 1. No acute osseous injury of the lumbar spine. 2. Extensive multilevel degenerative changes as detailed above. ACT 112: Negative or not required by law. Electronically signed by: Aj Bettencourt M.D. 09/21/2019 6:06 AM Dictated: 09/21/19599 Transcribed: 09/21/[address] Scan Report Patient: DENIS MONTEJO Date: 09/22/19 MR#: [id number]: [address] [facility] Acct ID:[id number]: Date: 1935[facility] Zip: [place] [address] Age: 84Location: ED Sex: F Room/Bed: Att Phy:Diagnosis: PAIN Tere Phy: Kuldip Mckay MDService Date: 09/22/19 Fam Phy:Interpreting Phy: Roger Selby MD Admit Phy: Ordering Phy: Samir Barahona M.D. cc: ~ ADDENDUM Impression #6. No change in the 11 mm spiculated lesion within the left lower lobe. Electronically signed by: Roger Selby M.D. 09/22/2019 5:[address] chest wo con, CT abd pelvis wo con CT DOSE: 620.69 mGy.cm HISTORY: Left-sided chest and abdominal pain. Fall. TECHNIQUE: Multiaxial CT images of the chest, abdomen, pelvis were performed without contrast. A dose lowering technique was utilized adhering to the principles of ALARA. COMPARISON: Chest CT 11/03/2018. Abdomen and pelvis CT 05/27/2018. FINDINGS: Chest CT: Nondisplaced left lateral seventh rib fracture. No pneumothorax. Chronic pleural-parenchymal scarring with scattered tree-in-bud nodular opacities and right middle lobe/lingular bronchiectasis persists. No change in the 11 mm spiculated lesion within the left lower lobe on image 167. Small multifocal areas of peripheral consolidation within the right lung and the tree-in-bud nodular opacities have slightly progressed. A few scattered punctate calcified granulomas. Small amount of mucoid material within the trachea. There are small bilateral pleural effusions. The heart remains mildly enlarged. Small pericardial effusion. No mediastinal or hilar lymphadenopathy. There is a pectus excavatum deformity. The thoracic aorta is normal in caliber containing mild calcified plaque. No mediastinal hematoma. Abdomen/pelvis CT: No pneumoperitoneum. No pneumatosis. No acute fractures within the abdomen or pelvis. The unenhanced liver, spleen, adrenal glands, and pancreas are unremarkable. Small stone/mineralization within the upper pole the right kidney. No hydronephrosis. The bladder is unremarkable. Mild pelvic floor collapse. The uterus and adnexa are unremarkable. Small amount of pelvic free fluid. Colonic diverticulosis. No evidence for diverticulitis. Overall, there is suboptimal evaluation for bowel pathology due to the lack of intravenous and oral contrast. However, there is no definite bowel wall thickening or obstruction. There is suggestion of sludge within the gallbladder. No gallbladder wall thickening. No retroperitoneal lymphadenopathy or hematoma. Mil d calcified plaque within the normal caliber abdominal aorta. Surgical clips within the right inguinal region. IMPRESSION: 1. Nondisplaced left lateral seventh rib fracture. No pneumothorax. 2. Chronic changes within the chest as described above including scattered tree-in-bud nodular opacities and bronchiectasis. The small peripheral areas of consolidation within the right lung and the tree-in-bud nodular opacities have slightly progressed. 3. Small bilateral pleural effusions and a small pericardial effusion. 4. No acute traumatic abdomen within the abdomen or pelvis. 5. Additional findings as described above. ACT 112: Negative or not required by law. Radiology: reports reviewed Radiology Findings: [place], [place] [phone] XRay Report Patient: DENIS MONTEJO Date: 09/20/19 MR#: [id number]: [address] [place] [address] Acct ID:[id number]: Date: 1935[facility] Zip: [place] [address] Age: 84Location: ED Sex: F Room/Bed: Att Phy:Diagnosis: FALL Tere Phy: Kuldip Mckay, MDService Date: 09/21/19 Fam Phy:Interpreting Phy: Aj Bettencourt MD Admit Phy: Ordering Phy: Senia Kearney DO cc: ~ XR finger(s) LT min 2V CLINICAL HISTORY: 84 years-old Female presenting with thumb, trauma. TECHNIQUE: Frontal, oblique, and lateral views of the left first finger were obtained. COMPARISON: None. FINDINGS: Pin fixation for arthrodesis across the first metacarpal phalangeal joint. Osseous fusion is largely present, however, there is a fracture plane along the dorsal and radial aspect. Overlying soft tissue swelling. Underlying osteopenia. Partially visualized advanced joint space loss and deformity arthropathy at the carpus. IMPRESSION: Fracture plane at the first MCP joint arthrodesis is age indeterminate. Given overlying soft tissue swelling, this may be acute. Correlate with point tenderness. ACT 112: Negative or not required by law. Electronically signed by: Aj Bettencourt M.D. 09/21/2019 6:17 AM Dictated: 09/21/19 0616 Transcribed: 09/21/19 0616 [facility], [place] [phone] XRay Report Patient: DENIS MONTEJO Date: 09/20/19 MR#: [id number]: [address] [facility] Acct ID:[id number]: Date: 1935 Zip: [place] [address] Age: 84Location: ED Sex: F Room/Bed: Att Phy:Diagnosis: FALL Tere Phy: Kuldip Mckay, MDService Date: 09/21/19 Fam Phy:Interpreting Phy: Aj Bettencourt MD Admit Phy: Ordering Phy: Senia Kearney, cc: ~ XR pelvis 1-2V routine CLINICAL HISTORY: 84 years-old Female presenting with trauma. TECHNIQUE: Single frontal view of the pelvis was obtained. COMPARISON: None. FINDINGS: Mild degenerative changes of the lower lumbar spine. Significant bowel gas and stool to grating evaluation to a moderate degree was prominently of the sacrum and sacroiliac joints. The remainder of the bony pelvis is intact. Pubic symphysis and hip joints congruent. Surgical clips project over the right inguinal region. A loose body or soft tissue calcification projects over the left femoral neck. Ischemia may be present. Femoral necks grossly intact. IMPRESSION: Allowing for bowel gas and stool, no convincing evidence of acute osseous injury. ACT 112: Negative or not required by law. Electronically signed by: Aj Bettencourt M.D. 09/21/2019 5:51 AM Dictated: 09/21/1949 Transcribed: 09/21/19 0549 [facility], [place] [phone] XRay Report Patient: DENIS MONTEJO Date: 09/20/19 MR#: [id number]: [address] [facility] Acct ID:[id number]: Date: 1935 Zip: [place] [address] Age: 84Location: ED Sex: F Room/Bed: Att Phy:Diagnosis: FALL Tere Phy: Kuldip Mckay, MDService Date: 09/21/19 Fam Phy:Interpreting Phy: Aj Bettencourt MD Admit Phy: Ordering Phy: Senia Kearney DO cc: ~ XR ribs LT min 3V w CXR1V CLINICAL HISTORY: 84 years-old Female presenting with trauma. TECHNIQUE: Semiupright AP view of the chest as well as frontal and oblique views of the left ribs were obtained. COMPARISON: Chest x-ray from 07/31/[address] from 11/03/2018. FINDINGS: Osteopenia suspected. Atherosclerosis of the aortic arch. Cardiac silhouette mildly enlarged. Lungs are hyperinflated. Postsurgical changes of prior wedge resections in the right lung. Heterogeneity and coarsening of lung markings similar to prior. Nodular density projects over the right lung base, which is similar to increased from prior. No large effusion or pneumothorax. Multiple level degenerative changes of the spine with scoliosis. Allowing for osteopenia, no displaced left rib fracture is evident. IMPRESSION: 1. No radiographic evidence of acute osseous injury. 2. Chronic lung disease better seen on prior chest CT. 3. Nodular densities in the right lower lung likely relate to the underlying pulmonary nodules. ACT 112: Negative or not required by law. Electronically signed by: Aj Bettencourt M.D. 09/21/2019 6:10 AM Dictated: 09/21/19 06 Transcribed: 09/21/19 06 [facility] [phone] XRay Report Patient: DENIS MONTEJO Date: 09/20/19 MR#: [id number]: [address] [place] [address] Acct ID:[id number]: Date: 1935[facility] Zip: [place] [address] Age: 84Location: ED Sex: F Room/Bed: Att Phy:Diagnosis: FALL Tere Phy: Kuldip Mckay, MDService Date: 09/21/19 Fam Phy:Interpreting Phy: Aj Bettencourt MD Admit Phy: Ordering Phy: Senia Kearney DO cc: ~ XR tibia fibula RT 2V CLINICAL HISTORY: 84 years-old Female presenting with trauma. TECHNIQUE: Frontal and crosstable lateral views of the right lower leg were obtained. COMPARISON: None. FINDINGS: Right knee and ankle mortise congruent. Osteopenia suspected. No acute fracture or malalignment. No advanced degenerative change. No radiographic soft tissue abnormality. IMPRESSION: No acute osseous injury. ACT 112: Negative or not required by law. Electronically signed by: Aj Bettencourt M.D. 09/21/2019 6:12 AM Dictated: 09/21/19 0611 Transcribed: 09/21/19 0611 [facility] [place] [phone] XRay Report Patient: DENIS MONTEJO Date: 09/20/19 MR#: [id number]: [address] [place] [address] Acct ID:[id number]: Date: 1935City Zip: [place] [address] Age: 84Location: ED Sex: F Room/Bed: Att Phy:Diagnosis: FALL Tere Phy: Kuldip Mckay MDService Date: 09/21/19 Fam Phy:Interpreting Phy: Aj Bettencourt MD Admit Phy: Ordering Phy: Senia Kearney DO cc: ~ XR wrist LT 2V CLINICAL HISTORY: 84 years-old Female presenting with trauma. TECHNIQUE: Frontal and lateral views of the left wrist were obtained. COMPARISON: None. FINDINGS: Severe osteopenia. There is also severe deforming arthropathy affecting the distal radial ulnar joint, radiocarpal joints, intercarpal joints, and several carpometacarpal joints. In fixation across the first metacarpal phalangeal joint. There is a fracture plane at this site. Otherwise osseous fusion is evident at the arthrodesis. Deformities of the neck 7 the fourth and fifth metacarpals may be present. Apparent dislocation of the fourth and fifth carpal phalangeal joints. This findings may be chronic. Severity of osteopenia limits evaluation. Soft tissue atrophy evident. IMPRESSION: 1. The severity of deformities and osteopenia limits evaluation for acute osseous injury. 2. Arthrodesis at the first MCP joint with thin fixation and suspected fracture. This may be acute. Correlate with point tenderness. 3. Deformities of the fourth and fifth metacarpals and dislocation of the fourth and fifth MCP joints may be on a chronic basis. 4. Deforming arthropathy at the carpus. ACT 112: Negative or not required by law. Electronically signed by: Aj Bettencourt M.D. 09/21/2019 6:15 AM Dictated: 09/21/19611 Transcribed: 09/21/19611 [facility], [place] [phone] Previous Records Review Previous Records: personally reviewed by me
[2019-09-23] MEDS: ACETAMINOPHEN 325 MG TAB PO SCH ×4 (09:14→19:50)
[2019-09-23] MEDS: METOPROLOL SUCC 25MG EXT REL TAB PO SCH ×3 (09:16→20:02)
[2019-09-23] MEDS: CELECOXIB 100 MG CAP PO SCH ×2 (09:17→09:47)
[2019-09-23] MEDS: CALCIUM 600MG + VIT D 400 IU TAB PO SCH (09:17)
[2019-09-23] MEDS: AMLODIPINE BESYLATE 5 MG TAB PO SCH (09:18)
[2019-09-23] MEDS: RALOXIFENE HCL 60 MG TAB PO SCH ×2 (09:18→09:47)
[2019-09-23] MEDS: MULTIVITAMIN TAB PO SCH ×2 (09:19→10:47)
[2019-09-23] MEDS: LIDOCAINE 5% 1 PATCH TD SCH ×2 (09:19→11:12)
[2019-09-23] MEDS: DICLOFENAC SOD 1% GEL 100 GM TUBE EXT SCH ×2 (09:20→19:59)
[2019-09-23] MEDS: POLYETHYLENE (MIRALAX) 17 GM PACK PO SCH ×2 (09:31→19:57)
[2019-09-23] MEDS: HEPARIN SOD 5,000 UNIT/0.5 ML VIAL SQ SCH ×2 (09:46→19:56)
[2019-09-23] MEDS: SODIUM CHLORIDE 0.9% 1000ML 1,000 ML IV SCH (10:42)
--- NOTE | 2019-09-23 13:18 | Electrocardiogram Report ---
Test Reason : Blood Pressure : / mmHG Vent. Rate : 082 BPM Atrial Rate : 082 BPM P-R Int : 158 ms QRS Dur : 076 ms QT Int : 364 ms P-R-T Axes : 078 050 055 degrees QTc Int : 425 ms Normal sinus rhythm Left atrial enlargement Septal infarct (cited on or before 22-SEP-2019) Abnormal ECG When compared with ECG of 27-MAY-2018 22:45, ST no longer depressed in Inferior leads Confirmed by Benjy Dorantes ([id number]) on 09/23/2019 1:18:30 PM Referred By: REFERRED SELF Confirmed By:Benjy Dorantes
[2019-09-23] MEDS: NYSTATIN SUSP 500,000 U/5 ML UDC PO SCH ×3 (13:24→19:57)
[2019-09-23] MEDS: CHOLECALCIFEROL 1,000 UNITS 25 MCG TAB PO SCH (13:29)
--- NOTE | 2019-09-23 16:33 | Hospitalist Progress Note ---
Date of Service September 23, 2019 Assessment & Plan (1) Acute hyponatremia: Unclear cause but similar episode associated with incarcerated right inguinal hernia last year which resolved with IV fluids. Hypovolemic Likely related to poor intake - Urine Na 24, osm 186. Serum Na 123, osm 263; No obvious extra renal losses AM cortisol was 25 and TSH was normal. Continue to trend Na with NSS started in ER. Boost supplements, squeegee tender consult (2) Generalized pain: Mainly back. Reassuring Lumbar spine CT for no acute fractures. History of rheumatoid arthritis degenerative disease. Pain management consulted: Continue Celebrex 100mg PO daily Discontinue Oxycodone and start Nucynta 50 mg q4h prn Lidoderm patches (3) Fall: 09/19 CT abd/pelvis, chest, lumbar and cervical spine all without traumatic injury except for rib fracture. Head CT without abnormal findings Known pulmonary nodule stable to slightly increased - follow up outpatient (4) Left rib fracture: Certainly partly contributing to her pain. Incentive spirometry (5) Cervicalgia: Pain management recommendations as above. Poor candidate for interve ntional procedures Cervical CT on 09/20 without acute injury (6) Rheumatoid arthritis: Severe degenerative changes consisted with this diagnosis in both hands and feet. No current acute flare noted on exam. Bronchiectasis may be secondary to RA (7) Constipation: Secondary to recent opiate use from pain. No BM for 3 days. No fecal impaction or obstruction noted on CT. Continue MiraLAX BID. (8) Osteoporosis: Presumed diagnosis for which she takes raloxifene. Vitamin D level low on labs this morning, will increase Vitamin D supplementation. (9) Leukocytosis: Slight progression of bronchiectasis changes for which she is taking moxifloxacin as outpatient, patient is not coughing Could be secondary to fall but will continue to trend. No obvious s/s of infection (10) HTN (hypertension): Continue metoprolol succinate home dosing (12.5mg QAM and midday, 25mg QPM) Amlodipine 2.5mg PO daily (11) Obstructive sleep apnea: Per notes has nasal pillow but unable to tolerate mask, appears to be unable to tolerate home cpap per outpatient notes (12) Bronchiectasis: Mildly progressed from prior as per CT. Unclear diagnosis for recent prescription of moxifloxacin use Will give flutter valve Per outpatient notes, history of pseudomonas bronchitis. 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 Austin is feeling pain in her rib from her fall and weak. ROS Constitutional: no chills, aches, sweats or fever Respiratory: no sob,cough, sputum, or wheezing Cardiac: no chest pain, palpitations, edema, orthopnea or lightheadedness GI: no abdominal pain, nausea, vomiting, diarrhea or constipation : no dysuria or hesitancy Extremities:see HPI Skin: no rash All other systems reviewed and negative Physical Exam Physical Exam: General: no distress Eyes: normal inspection, PERLL Tongue: white coating Respiratory: chest non tender, clear to auscultation, normal breath sounds, no respiratory distress, no accessory muscle use Cardiac: regular rate and rhythm, no rub or gallop, no murmur, no edema, no jvd GI/: active bowel sounds, no abd pain or tenderness, soft, non distended Extremities: normal range of motion, weak, arthritic changes of hands Neuro/Psych: alert and oriented x 3, normal mood and affect Skin: normal color, dry Results & Data Results & Data ([facility]) Vital Signs (Past 12 Hours) Vital Signs Temp Pulse Resp BP Pulse Ox 09/23/19 07:42 37 C 109 H 18 144/80 H 93 PG Care Time/CCT Total # of Minutes Spent Total Time Spent with Patient: Total time spent is greater than 50% in coordination of care (as documented) at patient's floor/unit and/or counseling patient: Coding Level of Care Code 60447 Subseq Hosp Care Lvl 3 Diagnoses Acute hyponatremia E87.1 Generalized pain R52 Fall W19.XXXA Left rib fracture S22.32XA Cervicalgia M54.2 Rheumatoid arthritis M06.9 Constipation K59.00 Osteoporosis M81.0 Leukocytosis D72.829 HTN (hypertension) I10 Hypertension type: essential hypertension Obstructive sleep apnea G47.33 Bronchiectasis J47.9 History of GRANT infection Z86.19 Severe protein-calorie malnutrition E43 HLD (hyperlipidemia) E78.5 Asthma J45.909 Protein malnutrition E46 Thrush B37.0 DVT prophylaxis Z29.9 (1) HTN (hypertension) Hypertension type: essential hypertension Qualified Code(s): I10 - Essential (primary) hypertension
[2019-09-23] MEDS: FLUTICASONE FUROATE 100MCG 14 PUFFS/INHALER INH SCH (19:51)
[2019-09-24] MEDS: TAPENTADOL HCL 50 MG TAB PO PRN (00:15)
[2019-09-24] MEDS: SODIUM CHLORIDE 0.9% 1000ML 1,000 ML IV SCH (04:49)
[2019-09-24 06:20] LABS: Basophils # (auto) 0.01 K/uL (0-0.2); Basophils % (auto) 0.1 %; Eosinophils # (auto) 0.04 K/uL (0-0.5); Eosinophils % (auto) 0.3 %; Hematocrit (blood only) 30.7 % (37-47); Hemoglobin 10.2 g/dL (12.0-16.0); Immature Granulocytes # (auto) 0.02 K/uL (0.00-0.02); Immature Granulocytes % (auto) 0.2 %; Lymphocytes # (auto) 0.86 K/uL (1.2-3.4); Lymphocytes % (auto) 7.5 %; Mean Corpuscular Hemoglobin 30.5 pg (25-34); Mean Corpuscular Hgb Conc 33.2 g/dL (32-36); Mean Corpuscular Volume 91.9 fL (80-100); Mean Platelet Volume 9.6 fL (7.4-10.4); Monocytes # (auto) 0.68 K/uL (0.11-0.59); Monocytes % (auto) 5.9 %; Neutrophils # (auto) 9.93 K/uL (1.4-6.5); Platelet Count 184 K/uL (130-400); RDW Coefficient of Variation 14.1 % (11.5-14.5); RDW Standard Deviation 47.1 fL (36.4-46.3); Red Blood Count 3.34 M/uL (4.2-5.4); White Blood Count 11.54 K/uL (4.8-10.8)
[2019-09-24 06:51] LABS: BUN Creatinine Ratio 20.9 (10-20); Creatinine Clr Calc Pharmacy 34.6 ml/min; Est GFR (African American) 86.8; Est GFR (Non-African American) 74.9; Potassium 4.6 mmol/L (3.5-5.1)
[2019-09-24] MEDS: ACETAMINOPHEN 325 MG TAB PO SCH ×4 (08:38→20:56)
[2019-09-24] MEDS: CHOLECALCIFEROL 1,000 UNITS 25 MCG TAB PO SCH (08:39)
[2019-09-24] MEDS: NYSTATIN SUSP 500,000 U/5 ML UDC PO SCH ×4 (08:39→20:56)
[2019-09-24] MEDS: MULTIVITAMIN TAB PO SCH ×2 (08:40→08:55)
[2019-09-24] MEDS: AMLODIPINE BESYLATE 5 MG TAB PO SCH (08:41)
[2019-09-24] MEDS: ASPIRIN 81 MG ECTAB PO SCH (08:43)
[2019-09-24] MEDS: METOPROLOL SUCC 25MG EXT REL TAB PO SCH ×3 (08:43→20:56)
[2019-09-24] MEDS: DICLOFENAC SOD 1% GEL 100 GM TUBE EXT SCH ×2 (08:44→21:09)
[2019-09-24] MEDS: LIDOCAINE 5% 1 PATCH TD SCH ×2 (08:44→08:48)
[2019-09-24] MEDS: RALOXIFENE HCL 60 MG TAB PO SCH (08:45)
[2019-09-24] MEDS: CALCIUM 600MG + VIT D 400 IU TAB PO SCH (08:45)
[2019-09-24] MEDS: CELECOXIB 100 MG CAP PO SCH (08:46)
[2019-09-24] MEDS: POLYETHYLENE (MIRALAX) 17 GM PACK PO SCH ×2 (08:47→20:57)
[2019-09-24] MEDS: HEPARIN SOD 5,000 UNIT/0.5 ML VIAL SQ SCH ×2 (08:47→21:01)
--- NOTE | 2019-09-24 09:03 | Pain Management Progress Note ---
Date of Service September 24, 2019 Assessment & Plan (1) Left rib fracture: Present on Admission?: Yes (2) Rheumatoid arthritis: Present on Admission?: Yes (3) Constipation: Present on Admission?: Yes (4) Cervicalgia: * Continue Nucynta 50 mg every 4 hours as needed breakthrough pain. * Patient will continue with Tylenol 650 mg every 4 hours scheduled dosing * Continue with Lidoderm patch applied to the left chest wall * Continue Celebrex 100 mg every morning per hospitalist team * Consider use of Relistor should patient have persisting intractable constipation due to the possibility of opioid induced constipation * Pain service will sign off on patient at this time. Please contact us for further input as needed. Thank you for allowing us to participate in the care of this patient. Present on Admission?: Yes Subjective Mrs. Austin is reporting overall improvement in her pain complaints today. She does have continued pain in the left lateral chest wall and lumbar region. She is no longer complaining of pain in the axial cervicothoracic junction as she was yesterday. The patient indicates that Tylenol was controlling her pain throughout yesterday without difficulties. She did utilize Nucynta 50 mg x 1 late last evening. The patient slept for multiple hours after the dosing of the Nucynta. She is unable to reliably report benefit versus side effects. She continues to deny any radicular pattern to her pain complaints. She reported minimal discomfort with moving out of bed to the chair earlier this morning in the chest wall region. She denies abdominal pain or fullness. She has not had bowel movement since admission although indicates minimal dietary intake. Her appetite is somewhat improving but she remains with nausea. She indicates her c urrent pain is a 4-5/10 in the sitting position. Patient has no further constitutional complaints. Plan of care discussed with Dr. Adeola Eaton. Pain Assessment Pain Assessment Full Body Front + Back: 1. Lumbosacral spine 2. Left lateral and anterior chest wall Pain scale - at its best (0-10): 4 Pain scale - at its worst (0-10): 8 Physical Exam Physical Exam: General: Patient was sitting up and was witnessed transferring from the bed to the chair with assistance without obvious discomfort. Patient is mentating better with improved cognition today when compared to yesterday. Speech and thought process appropriate. Chest: Patient remains tender over the lateral and anterior chest wall on the left palpation. She remains tender with AP/lateral compression of the chest wall. Back/spine: Generalized tenderness over the lumbosacral region which is nonfocal to the midline, facet joints or SI joints. Lower extremities: SLR negative. Strength 4/5.
[2019-09-24] MEDS: ONDANSETRON 4 MG OD TAB PO PRN (09:06)
[2019-09-24] MEDS ORDERED: COUGH DROP (SUGAR FREE) LOZ 24 LOZ/1 BOX BUCCAL ONE (12:46)
--- NOTE | 2019-09-24 16:34 | Hospitalist Progress Note ---
Date of Service September 24, 2019 Assessment & Plan (1) Acute hyponatremia: Improving, sodium 129 today Hypovolemic Likely related to poor intake - Urine Na 24, osm 186. Serum Na 123, osm 263; No obvious extra renal losses AM cortisol was 25 and TSH was normal. Boost supplements, medical office clerk consult (2) Left rib fracture: Pain management Incentive spirometry (3) Osteoporosis with current pathological fracture: As above (4) Rheumatoid arthritis: Severe degenerative changes consisted with this diagnosis in both hands and feet. No current acute flare noted on exam. Bronchiectasis may be secondary to RA (5) Constipation: Secondary to recent opiate use from pain. No BM for 4 days. No fecal impaction or obstruction noted on CT. Miralax ordered but patient refusing (6) Cervicalgia: Pain management recommendations as above. Poor candidate for interventional procedures Cervical CT on 09/20 without acute injury Continue lidocaine patch (7) Generalized pain: Mainly back. Reassuring Lumbar spine CT for no acute fractures. History of rheumatoid arthritis degenerative disease. Pain management consulted: Continue Celebrex 100mg PO daily Discontinued Oxycodone and started Nucynta 50 mg q4h prn - patient used one dose last evening and tolerated Lidoderm patches (8) Fall: 09/19 CT abd/pelvis, chest, lumbar and cervical spine all without traumatic injury except for rib fracture. Head CT without abnormal findings Known pulmonary nodule stable to slightly increased - follow up outpatient (9) Osteoporosis: Presumed diagnosis for which she takes raloxifene. Vitamin D level low on labs this morning, will increase Vitamin D supplementation. (10) Leukocytosis: Improving Could be secondary to fall, continue to trend (11) HTN (hypertension): stable Continue metoprolol succinate home dosing (12.5mg QAM and midday, 25mg QPM) Amlodipine 2.5mg PO daily (12) Obstructive sleep apnea: Per notes has nasal pillow but unable to tolerate mask, appears to be unable to tolerate home cpap per outpatient notes (13) Bronchiectasis: Mildly progressed from prior as per CT. Will give flutter valve Per outpatient notes, history of pseudomonas bronchitis. She started a regimen of moxifloxacin on per her son for increased coughing and sputum. Will continue home regimen while here Patient reports some cowart sputum production. No sob. 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 Geovanna Youngblood reports feeling better today, pain is under better control. She is able to get herself to sitting at the side of the bed without assistance as I was bedside. She does have pain in her left lower back over the pelvis. I updated her son over the phone ROS Constitutional: no chills, aches, sweats or fever Respiratory: no sob,cough, sputum, or wheezing Cardiac: no chest pain, palpitations, edema, orthopnea or lightheadedness GI: no abdominal pain, nausea, vomiting, diarrhea or constipation : no dysuria or hesitancy Extremities: no joint pain or weakness Skin: no rash All other systems reviewed and negative Physical Exam Physical Exam: General: no distress Eyes: normal inspection, PERLL Respiratory: chest non tender, clear to auscultation, normal breath sounds, no respiratory distress, no accessory muscle use Cardiac: regular rate and rhythm, no rub or gallop, no murmur, no edema, no jvd GI/: active bowel sounds, no abd pain or tenderness, soft, non distended Extremities: normal range of motion, normal strength, left lower back tenderness over iliac crest Neuro/Psych: alert and oriented x 3, normal mood and affect Skin: normal color, dry Results & Data Results & Data ([facility]) Vital Signs (Past 12 Hours) Vital Signs Temp Pulse Resp BP Pulse Ox 09/24/19 16:14 36.5 C 69 15 145/79 H 93 09/24/19 12:56 107 H 130/73 09/24/19 07:00 37 C 92 H 16 130/63 92 PG Care Time/CCT Total # of Minutes Spent Total Time Spent with Patient: Total time spent is greater than 50% in coordination of care (as documented) at patient's floor/unit and/or counseling patient: Coding Level of Care Code 46225 Subseq Hosp Care Lvl 3 Diagnoses Acute hyponatremia E87.1 Left rib fracture S22.32XA Osteoporosis with current pathological fracture M80.00XA Rheumatoid arthritis M06.9 Constipation K59.00 Cervicalgia M54.2 Generalized pain R52 Fall W19.XXXA Osteoporosis M81.0 Leukocytosis D72.829 HTN (hypertension) I10 Hypertension type: essential hypertension Obstructive sleep apnea G47.33 Bronchiectasis J47.9 History of GRANT infection Z86.19 Severe protein-calorie malnutrition E43 HLD (hyperlipidemia) E78.5 Asthma J45.909 Protein malnutrition E46 Thrush B37.0 DVT prophylaxis Z29.9 (1) HTN (hypertension) Hypertension type: essential hypertension Qualified Code(s): I10 - Essential (primary) hypertension
[2019-09-24] MEDS: FLUTICASONE FUROATE 100MCG 14 PUFFS/INHALER INH SCH (20:57)
[2019-09-24] MEDS: MOXIFLOXACIN 400 MG PO SCH (21:00)
[2019-09-25] MEDS: TAPENTADOL HCL 50 MG TAB PO PRN ×3 (00:40→23:34)
[2019-09-25 06:01] LABS: Basophils # (auto) 0.01 K/uL (0-0.2); Basophils % (auto) 0.1 %; Hematocrit (blood only) 28.5 % (37-47); Hemoglobin 9.6 g/dL (12.0-16.0); Immature Granulocytes # (auto) 0.01 K/uL (0.00-0.02); Immature Granulocytes % (auto) 0.1 %; Lymphocytes # (auto) 1.24 K/uL (1.2-3.4); Lymphocytes % (auto) 12.7 %; Mean Corpuscular Hemoglobin 30.7 pg (25-34); Mean Corpuscular Hgb Conc 33.7 g/dL (32-36); Mean Corpuscular Volume 91.1 fL (80-100); Mean Platelet Volume 9.4 fL (7.4-10.4); Monocytes # (auto) 0.52 K/uL (0.11-0.59); Monocytes % (auto) 5.3 %; Neutrophils # (auto) 7.89 K/uL (1.4-6.5); Neutrophils % (auto) 80.8 %; Platelet Count 192 K/uL (130-400); RDW Coefficient of Variation 14.1 % (11.5-14.5); RDW Standard Deviation 46.8 fL (36.4-46.3); Red Blood Count 3.13 M/uL (4.2-5.4); White Blood Count 9.77 K/uL (4.8-10.8)
[2019-09-25 06:29] LABS: Albumin Level 2.1 gm/dl (3.4-5.0); BUN Creatinine Ratio 19.1 (10-20); Calcium 7.9 mg/dl (8.5-10.1); Creatinine Clr Calc Pharmacy 32.9 ml/min; Est GFR (African American) 81.5; Est GFR (Non-African American) 70.3; Potassium 4.6 mmol/L (3.5-5.1)
[2019-09-25 06:35] LABS: Albumin Globulin Ratio 0.6 (0.9-2); Bilirubin,Total 0.6 mg/dl (0.2-1); Globulin 3.5 gm/dl (2.5-4.0); Total Protein 5.6 gm/dl (6.4-8.2)
[2019-09-25] MEDS: CELECOXIB 100 MG CAP PO SCH (09:17)
[2019-09-25] MEDS: HEPARIN SOD 5,000 UNIT/0.5 ML VIAL SQ SCH ×2 (09:18→20:08)
[2019-09-25] MEDS: ACETAMINOPHEN 325 MG TAB PO SCH ×4 (09:45→20:04)
[2019-09-25] MEDS: CALCIUM 600MG + VIT D 400 IU TAB PO SCH (09:46)
[2019-09-25] MEDS: RALOXIFENE HCL 60 MG TAB PO SCH (09:47)
[2019-09-25] MEDS: MULTIVITAMIN TAB PO SCH (09:47)
[2019-09-25] MEDS: MOXIFLOXACIN 400 MG PO SCH ×2 (09:48→20:13)
[2019-09-25] MEDS: AMLODIPINE BESYLATE 5 MG TAB PO SCH (09:50)
[2019-09-25] MEDS: METOPROLOL SUCC 25MG EXT REL TAB PO SCH ×3 (09:52→20:21)
[2019-09-25] MEDS: DICLOFENAC SOD 1% GEL 100 GM TUBE EXT SCH ×2 (09:55→20:10)
[2019-09-25] MEDS: LIDOCAINE 5% 1 PATCH TD SCH ×2 (10:01)
[2019-09-25] MEDS: NYSTATIN SUSP 500,000 U/5 ML UDC PO SCH ×4 (10:02→20:09)
[2019-09-25] MEDS: POLYETHYLENE (MIRALAX) 17 GM PACK PO SCH ×2 (10:06→20:08)
--- NOTE | 2019-09-25 12:37 | Hospitalist Progress Note ---
Date of Service September 25, 2019 Assessment & Plan (1) Acute hyponatremia: Improving, sodium 133 today Hypovolemic Likely related to poor intake - Urine Na 24, osm 186. Serum Na 123, osm 263; No obvious extra renal losses AM cortisol was 25 and TSH was normal. Boost supplements, chain sales representative consult Sodium is improving with the improved po intake, IVF dc'd (2) Left rib fracture: Pain management Incentive spirometry (3) Osteoporosis with current pathological fracture: As above (4) Rheumatoid arthritis: Severe degenerative changes consisted with this diagnosis in both hands and feet. No current acute flare noted on exam. Bronchiectasis may be secondary to RA (5) Constipation: Secondary to recent opiate use from pain. No BM for 4 days. No fecal impaction or obstruction noted on CT. Miralax ordered but patient refusing (6) Cervicalgia: Pain management recommendations as above. Poor candidate for interventional procedures Cervical CT on 09/20 without acute injury Continue lidocaine patch (7) Generalized pain: Mainly back. Reassuring Lumbar spine CT for no acute fractures. History of rheumatoid arthritis degenerative disease. Pain management consulted: Continue Celebrex 100mg PO daily Discontinued Oxycodone and started Nucynta 50 mg q4h prn - feeling a bit more groggy with the Nucynta today after having 2 doses yesterday Lidoderm patches (8) Fall: 09/19 CT abd/pelvis, chest, lumbar and cervical spine all without traumatic injury except for rib fracture. Head CT without abnormal findings Known pulmonary nodule stable to slightly increased - follow up outpatient (9) Osteoporosis: Continue raloxifene. Vitamin D level low - increased Vitamin D supplementation. (10) Leukocytosis: Resolved Likely secondary to fall (11) HTN (hypertension): stable Continue metoprolol succinate home dosing (12.5mg QAM and midday, 25mg QPM) Amlodipine 2.5mg PO daily (12) Obstructive sleep apnea: Per notes has nasal pillow but unable to tolerate mask, appears to be unable to tolerate home cpap per outpatient notes (13) Bronchiectasis: Mildly progressed from prior as per CT. Will give flutter valve Per outpatient notes, history of pseudomonas bronchitis. She started a regimen of moxifloxacin on per her son for increased coughing and sputum. Will continue home regimen while here Patient reports some cowart sputum production. No sob. 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 Geovanna Youngblood is feeling a bit off today which she attributes to taking two doses of Nucynta yesterday. She is starting to feel a bit better overall pain escalante. ROS Constitutional: no chills, aches, sweats or fever Respiratory: no sob,cough, sputum, or wheezing Cardiac: no chest pain, palpitations, edema, orthopnea or lightheadedness GI: no abdominal pain, nausea, vomiting, diarrhea or constipation : no dysuria or hesitancy Extremities: no joint pain or weakness Skin: no rash All other systems reviewed and negative Physical Exam 2 Physical Exam: General: no distress, frail appearing Eyes: normal inspection, PERLL Respiratory: chest non tender, clear to auscultation, normal breath sounds, no respiratory distress, no accessory muscle use Cardiac: regular rate and rhythm, no rub or gallop, no murmur, no edema, no jvd GI/: active bowel sounds, no abd pain or tenderness, soft, non distended Extremities: generalized weakness, many joints with reduced rom due to arthritis Neuro/Psych: alert and oriented x 3, normal mood and affect Skin: normal color, dry Results & Data Results & Data ([facility]) Vital Signs (Past 12 Hours) Vital Signs Temp Pulse Resp BP Pulse Ox 09/25/19 06:55 36.9 C 83 19 143/62 H 90 PG Care Time/CCT Total # of Minutes Spent Total Time Spent with Patient: Total time spent is greater than 50% in coordination of care (as documented) at patient's floor/unit and/or counseling patient: Coding Level of Care Code 76260 Subseq Hosp Care Lvl 2 Diagnoses Acute hyponatremia E87.1 Left rib fracture S22.32XA Osteoporosis with current pathological fracture M80.00XA Rheumatoid arthritis M06.9 Constipation K59.00 Cervicalgia M54.2 Generalized pain R52 Fall W19.XXXA Osteoporosis M81.0 Leukocytosis D72.829 HTN (hypertension) I10 Hypertension type: essential hypertension Obstructive sleep apnea G47.33 Bronchiectasis J47.9 History of GRANT infection Z86.19 Severe protein-calorie malnutrition E43 HLD (hyperlipidemia) E78.5 Asthma J45.909 Protein malnutrition E46 Thrush B37.0 DVT prophylaxis Z29.9 (1) HTN (hypertension) Hypertension type: essential hypertension Qualified Code(s): I10 - Essential (primary) hypertension
[2019-09-25] MEDS: CHOLECALCIFEROL 1,000 UNITS 25 MCG TAB PO SCH (15:44)
[2019-09-25] MEDS: FLUTICASONE FUROATE 100MCG 14 PUFFS/INHALER INH SCH (20:13)
[2019-09-26] MEDS: ACETAMINOPHEN 325 MG TAB PO SCH ×4 (07:41→19:52)
[2019-09-26] MEDS: CELECOXIB 100 MG CAP PO SCH (09:00)
[2019-09-26] MEDS: POLYETHYLENE (MIRALAX) 17 GM PACK PO SCH ×2 (09:00→21:50)
[2019-09-26] MEDS: HEPARIN SOD 5,000 UNIT/0.5 ML VIAL SQ SCH ×3 (09:01→22:25)
[2019-09-26] MEDS: CHOLECALCIFEROL 1,000 UNITS 25 MCG TAB PO SCH (09:02)
[2019-09-26] MEDS: NYSTATIN SUSP 500,000 U/5 ML UDC PO SCH ×5 (09:02→22:04)
[2019-09-26] MEDS: MULTIVITAMIN TAB PO SCH (09:03)
[2019-09-26] MEDS: LIDOCAINE 5% 1 PATCH TD SCH ×2 (09:03→09:04)
[2019-09-26] MEDS: DICLOFENAC SOD 1% GEL 100 GM TUBE EXT SCH ×3 (09:03→22:26)
[2019-09-26] MEDS: MOXIFLOXACIN 400 MG PO SCH ×2 (09:04→21:51)
[2019-09-26] MEDS: METOPROLOL SUCC 25MG EXT REL TAB PO SCH ×3 (09:05→21:57)
[2019-09-26] MEDS: AMLODIPINE BESYLATE 5 MG TAB PO SCH (09:06)
[2019-09-26] MEDS: CALCIUM 600MG + VIT D 400 IU TAB PO SCH (09:07)
[2019-09-26] MEDS: RALOXIFENE HCL 60 MG TAB PO SCH (09:07)
[2019-09-26 09:20] LABS: Basophils # (auto) 0.01 K/uL (0-0.2); Basophils % (auto) 0.1 %; Eosinophils % (auto) 1.2 %; Hematocrit (blood only) 31.1 % (37-47); Hemoglobin 10.4 g/dL (12.0-16.0); Immature Granulocytes # (auto) 0.02 K/uL (0.00-0.02); Immature Granulocytes % (auto) 0.2 %; Lymphocytes # (auto) 0.91 K/uL (1.2-3.4); Lymphocytes % (auto) 10.7 %; Mean Corpuscular Hemoglobin 30.5 pg (25-34); Mean Corpuscular Hgb Conc 33.4 g/dL (32-36); Mean Corpuscular Volume 91.2 fL (80-100); Mean Platelet Volume 9.3 fL (7.4-10.4); Monocytes # (auto) 0.42 K/uL (0.11-0.59); Neutrophils # (auto) 7.01 K/uL (1.4-6.5); Neutrophils % (auto) 82.8 %; Platelet Count 222 K/uL (130-400); RDW Coefficient of Variation 14.5 % (11.5-14.5); RDW Standard Deviation 48.2 fL (36.4-46.3); Red Blood Count 3.41 M/uL (4.2-5.4); White Blood Count 8.47 K/uL (4.8-10.8)
[2019-09-26 09:51] LABS: BUN Creatinine Ratio 13.9 (10-20); Calcium 8.4 mg/dl (8.5-10.1); Creatinine Clr Calc Pharmacy 28.2 ml/min; Est GFR (African American) 67.6; Est GFR (Non-African American) 58.3; Potassium 4.6 mmol/L (3.5-5.1)
--- NOTE | 2019-09-26 11:26 | Hospitalist Progress Note ---
Date of Service September 26, 2019 Assessment & Plan (1) Acute hyponatremia: Improving, sodium 133 for the last two days Likely related to poor intake - Urine Na 24, osm 186. Serum Na 123, osm 263; No obvious extra renal losses AM cortisol was 25 and TSH was normal. Continue Boost supplements, lab animal technologist consult Sodium is improving with the improved po intake, IVF dc'd (2) Left rib fracture: Pain management - see below Incentive spirometry (3) Osteoporosis with current pathological fracture: As above (4) Rheumatoid arthritis: Severe degenerative changes consisted with this diagnosis in both hands and feet. No current acute flare noted on exam. Bronchiectasis may be secondary to RA (5) Constipation: Secondary to recent opiate use from pain. BM last two days (6) Cervicalgia: Pain management recommendations as above. Poor candidate for interventional procedures Cervical CT on 09/20 without acute injury Continue lidocaine patch (7) Generalized pain: Mainly back. Reassuring Lumbar spine CT for no acute fractures. History of rheumatoid arthritis degenerative disease. Pain management consulted: Continue Celebrex 100mg PO daily Discontinued Oxycodone and started Nucynta 50 mg q4h prn - feeling a bit more groggy with the Nucynta today after having 2 doses yesterday Lidoderm patches (8) Fall: 09/19 CT abd/pelvis, chest, lumbar and cervical spine all without traumatic injury except for rib fracture. Head CT without abnormal findings Known pulmonary nodule stable to slightly increased - follow up outpatient (9) Osteoporosis: Continue raloxifene. Vitamin D level low - increased Vitamin D supplementation. (10) Leukocytosis: Resolved Likely secondary to fall (11) HTN (hypertension): stable Continue metoprolol succinate home dosing (12.5mg QAM and midday, 25mg QPM) Amlodipine 2.5mg PO daily (12) Obstructive sleep apnea: Per notes has nasal pillow but unable to tolerate mask, appears to be unable to tolerate home cpap per outpatient notes (13) Bronchiectasis: Mildly progressed from prior as per CT. Continue flutter valve Per outpatient notes, history of pseudomonas bronchitis. She started a regimen of moxifloxacin on per her son for increased coughing and sputum. Will continue home regimen while here Patient reports some cowart sputum production. No sob. 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 Geovanna Youngblood is feeling better than yesterday but not as well as she'd like. She is still feeling somewhat weak on her feet. Her pain is better controlled today and she felt that one dose of Nucynta over the night instead of two was a better fit. She does not feel strong enough on her feet to go home. Updated her son over the phone ROS Constitutional: no chills, aches, sweats or fever Respiratory: no sob,cough, sputum, or wheezing Cardiac: no chest pain, palpitations, edema, orthopnea or lightheadedness GI: no abdominal pain, nausea, vomiting, diarrhea or constipation : no dysuria or hesitancy Extremities: no joint pain or weakness Skin: no rash All other systems reviewed and negative Physical Exam Physical Exam: General: no distress Eyes: normal inspection, PERLL Respiratory: chest non tender, clear to auscultation, normal breath sounds, no respiratory distress, no accessory muscle use Cardiac: regular rate and rhythm, no rub or gallop, no murmur, no edema, no jvd GI/: active bowel sounds, no abd pain or tenderness, soft, non distended Extremities: generalized weakness, left rib pain Neuro/Psych: alert and oriented x 3, normal mood and affect Skin: normal color, dry Results & Data Results & Data ([facility]) Vital Signs (Past 12 Hours) Vital Signs Temp Pulse Resp BP Pulse Ox 09/26/19 07:05 36.5 C 86 14 145/77 H 94 PG Care Time/CCT Total # of Minutes Spent Total Time Spent with Patient: Total time spent is greater than 50% in coordination of care (as documented) at patient's floor/unit and/or counseling patient: Coding Level of Care Code 47704 Subseq Hosp Care Lvl 2 Diagnoses Acute hyponatremia E87.1 Left rib fracture S22.32XA Osteoporosis with current pathological fracture M80.00XA Rheumatoid arthritis M06.9 Constipation K59.00 Cervicalgia M54.2 Generalized pain R52 Fall W19.XXXA Osteoporosis M81.0 Leukocytosis D72.829 HTN (hypertension) I10 Hypertension type: essential hypertension Obstructive sleep apnea G47.33 Bronchiectasis J47.9 History of GRANT infection Z86.19 Severe protein-calorie malnutrition E43 HLD (hyperlipidemia) E78.5 Asthma J45.909 Protein malnutrition E46 Thrush B37.0 DVT prophylaxis Z29.9 (1) HTN (hypertension) Hypertension type: essential hypertension Qualified Code(s): I10 - Essential (primary) hypertension
[2019-09-26] MEDS: FLUTICASONE FUROATE 100MCG 14 PUFFS/INHALER INH SCH (21:50)
[2019-09-27] MEDS: TAPENTADOL HCL 50 MG TAB PO PRN ×2 (04:51→23:48)
[2019-09-27] MEDS: LIDOCAINE 5% 1 PATCH TD SCH ×2 (08:43→08:44)
[2019-09-27] MEDS: POLYETHYLENE (MIRALAX) 17 GM PACK PO SCH ×2 (08:47→20:24)
[2019-09-27] MEDS: HEPARIN SOD 5,000 UNIT/0.5 ML VIAL SQ SCH ×2 (08:47→20:15)
[2019-09-27] MEDS: CELECOXIB 100 MG CAP PO SCH (08:47)
[2019-09-27] MEDS: DICLOFENAC SOD 1% GEL 100 GM TUBE EXT SCH ×2 (08:48→20:14)
[2019-09-27] MEDS: CHOLECALCIFEROL 1,000 UNITS 25 MCG TAB PO SCH (08:48)
[2019-09-27] MEDS: NYSTATIN SUSP 500,000 U/5 ML UDC PO SCH ×4 (08:48→20:14)
[2019-09-27] MEDS: MULTIVITAMIN TAB PO SCH (08:48)
[2019-09-27] MEDS: METOPROLOL SUCC 25MG EXT REL TAB PO SCH ×3 (08:49→20:18)
[2019-09-27] MEDS: CALCIUM 600MG + VIT D 400 IU TAB PO SCH (08:50)
[2019-09-27] MEDS: AMLODIPINE BESYLATE 5 MG TAB PO SCH (08:50)
[2019-09-27] MEDS: RALOXIFENE HCL 60 MG TAB PO SCH (08:51)
[2019-09-27] MEDS: ACETAMINOPHEN 325 MG TAB PO SCH ×4 (08:53→20:21)
[2019-09-27] MEDS: MOXIFLOXACIN 400 MG PO SCH ×2 (08:53→20:19)
[2019-09-27 09:16] LABS: Basophils # (auto) 0.02 K/uL (0-0.2); Basophils % (auto) 0.2 %; Eosinophils # (auto) 0.08 K/uL (0-0.5); Hematocrit (blood only) 35.4 % (37-47); Hemoglobin 11.5 g/dL (12.0-16.0); Immature Granulocytes # (auto) 0.01 K/uL (0.00-0.02); Immature Granulocytes % (auto) 0.1 %; Lymphocytes # (auto) 1.66 K/uL (1.2-3.4); Mean Corpuscular Hemoglobin 29.9 pg (25-34); Mean Corpuscular Hgb Conc 32.5 g/dL (32-36); Mean Corpuscular Volume 92.2 fL (80-100); Mean Platelet Volume 8.9 fL (7.4-10.4); Monocytes # (auto) 0.37 K/uL (0.11-0.59); Monocytes % (auto) 4.5 %; Neutrophils # (auto) 6.14 K/uL (1.4-6.5); Neutrophils % (auto) 74.2 %; Platelet Count 268 K/uL (130-400); RDW Coefficient of Variation 14.6 % (11.5-14.5); RDW Standard Deviation 49.4 fL (36.4-46.3); Red Blood Count 3.84 M/uL (4.2-5.4); White Blood Count 8.28 K/uL (4.8-10.8)
[2019-09-27 09:55] LABS: BUN Creatinine Ratio 15.1 (10-20); Calcium 8.9 mg/dl (8.5-10.1); Creatinine Clr Calc Pharmacy 30.5 ml/min; Est GFR (African American) 74.5; Est GFR (Non-African American) 64.3; Potassium 4.3 mmol/L (3.5-5.1)
--- NOTE | 2019-09-27 15:49 | Hospitalist Progress Note ---
Date of Service September 27, 2019 Assessment & Plan (1) Acute hyponatremia: Improving, sodium 132 today Likely related to poor intake - Urine Na 24, osm 186. Serum Na 123, osm 263; No obvious extra renal losses AM cortisol was 25 and TSH was normal. Continue Boost supplements, operations representative consult - recommends eating frequent snacks Encourage salt liberalization Sodium is improving with the improved po intake, IVF dc'd (2) Left rib fracture: Pain management - see below Incentive spirometry (3) Osteoporosis with current pathological fracture: As above (4) Rheumatoid arthritis: Severe degenerative changes consisted with this diagnosis in both hands and feet. No current acute flare noted on exam. Bronchiectasis may be secondary to RA (5) Constipation: REsolved (6) Cervicalgia: Pain management recommendations as below. Poor candidate for interventional procedures Cervical CT on 09/20 without acute injury Continue lidocaine patch (7) Generalized pain: Mainly back. Reassuring Lumbar spine CT for no acute fractures. History of rheumatoid arthritis degenerative disease. Pain management consulted: Continue Celebrex 100mg PO daily Discontinued Oxycodone and started Nucynta 50 mg q4h prn - Patient had two doses overnight and though she had to sleep a good bit of the morning felt her pain was a bit better controlled today Lidoderm patches, voltaren (8) Fall: 09/19 CT abd/pelvis, chest, lumbar and cervical spine all without traumatic injury except for rib fracture. Head CT without abnormal findings Known pulmonary nodule stable to slightly increased - follow up outpatient (9) Osteoporosis: Continue raloxifene. Vitamin D level low - increased Vitamin D supplementation. (10) Leukocytosis: Resolved Likely secondary to fall (11) HTN (hypertension): stable Continue metoprolol succinate home dosing (12.5mg QAM and midday, 25mg QPM) Amlodipine 2.5mg PO daily (12) Obstructive sleep apnea: Per notes has nasal pillow but unable to tolerate mask, appears to be unable to tolerate home cpap per outpatient notes (13) Bronchiectasis: Mildly progressed from prior as per CT. Continue flutter valve Per outpatient notes, history of pseudomonas bronchitis. She started a regimen of moxifloxacin on per her son for increased coughing and sputum. Will continue home regimen while here Patient reports some cowart sputum production. No sob. 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 Would recommend stay tonight and hopefully discharge am. Son updated by phone Admission and Anticipated Discharge Date Admission Date: September 22, 2019 Subjective Ms. Geovanna Youngblood feels that her pain medications were working better for her today than yesterday. She continues to feel weak. ROS Constitutional: no chills, aches, sweats or fever Respiratory: no sob,cough, sputum, or wheezing Cardiac: no chest pain, palpitations, edema, orthopnea or lightheadedness GI: no abdominal pain, nausea, vomiting, diarrhea or constipation : no dysuria or hesitancy Extremities: see HPI Skin: no rash All other systems reviewed and negative Physical Exam Physical Exam: General: no distress Eyes: normal inspection, PERLL Respiratory: chest non tender, clear to auscultation, normal breath sounds, no respiratory distress, no accessory muscle use Cardiac: regular rate and rhythm, no rub or gallop, no murmur, no edema, no jvd GI/: active bowel sounds, no abd pain or tenderness, soft, non distended Extremities: multiple areas of joint pain and arthritis changes, generalized weakenss Neuro/Psych: alert and oriented x 3, normal mood and affect Skin: normal color, dry Results & Data Results [facility] ([facility]) Vital Signs (Past 12 Hours) Vital Signs Temp Pulse Resp BP Pulse Ox 09/27/19 15:19 36.6 C 74 14 130/73 94 09/27/19 12:49 36.9 C 85 16 114/73 92 09/27/19 07:24 36.5 C 76 16 120/68 92 PG Care Time/CCT Total # of Minutes Spent Total Time Spent with Patient: Total time spent is greater than 50% in coordination of care (as documented) at patient's floor/unit and/or counseling patient: Coding Level of Care Code 90079 Subseq Hosp Care Lvl 2 Diagnoses Acute hyponatremia E87.1 Left rib fracture S22.32XA Osteoporosis with current pathological fracture M80.00XA Rheumatoid arthritis M06.9 Constipation K59.00 Cervicalgia M54.2 Generalized pain R52 Fall W19.XXXA Osteoporosis M81.0 Leukocytosis D72.829 HTN (hypertension) I10 Hypertension type: essential hypertension Obstructive sleep apnea G47.33 Bronchiectasis J47.9 History of GRANT infection Z86.19 Severe protein-calorie malnutrition E43 HLD (hyperlipidemia) E78.5 Asthma J45.909 Protein malnutrition E46 Thrush B37.0 DVT prophylaxis Z29.9 (1) HTN (hypertension) Hypertension type: essential hypertension Qualified Code(s): I10 - Essential (primary) hypertension
[2019-09-27] MEDS: FLUTICASONE FUROATE 100MCG 14 PUFFS/INHALER INH SCH (20:17)
[2019-09-28] MEDS: TAPENTADOL HCL 50 MG TAB PO PRN (03:48)
[2019-09-28] MEDS: ACETAMINOPHEN 325 MG TAB PO SCH ×2 (07:39→12:47)
[2019-09-28] MEDS: CALCIUM 600MG + VIT D 400 IU TAB PO SCH (09:15)
[2019-09-28] MEDS: RALOXIFENE HCL 60 MG TAB PO SCH (09:16)
[2019-09-28] MEDS: CELECOXIB 100 MG CAP PO SCH ×2 (09:16→09:41)
[2019-09-28] MEDS: ASPIRIN 81 MG ECTAB PO SCH (09:16)
[2019-09-28] MEDS: LIDOCAINE 5% 1 PATCH TD SCH ×2 (09:17→09:18)
[2019-09-28] MEDS: MOXIFLOXACIN 400 MG PO SCH (09:19)
[2019-09-28] MEDS: MULTIVITAMIN TAB PO SCH (09:19)
[2019-09-28] MEDS: POLYETHYLENE (MIRALAX) 17 GM PACK PO SCH (09:19)
[2019-09-28] MEDS: NYSTATIN SUSP 500,000 U/5 ML UDC PO SCH ×2 (09:19→12:46)
[2019-09-28] MEDS: AMLODIPINE BESYLATE 5 MG TAB PO SCH (09:21)
[2019-09-28] MEDS: CHOLECALCIFEROL 1,000 UNITS 25 MCG TAB PO SCH (09:22)
[2019-09-28] MEDS: METOPROLOL SUCC 25MG EXT REL TAB PO SCH ×2 (09:23→12:46)
[2019-09-28] MEDS: DICLOFENAC SOD 1% GEL 100 GM TUBE EXT SCH ×2 (09:23→09:42)
[2019-09-28] MEDS: HEPARIN SOD 5,000 UNIT/0.5 ML VIAL SQ SCH ×2 (09:24→09:41)
--- NOTE | 2019-10-04 23:44 | Discharge Summary ---
Date of Service September 28, 2019 Admission HPI Per Admitting Provider [place] Stlynette Youngblood is an 84 year old with rheumatoid arthritis who presents to the ER after continued progressive pain since her fall a day previously. She endorses prior history from ER note of trying to close upper vents while standing on stool and slipping and falling onto her left side. She denies any worsening headache, dizziness, vision changes since then. She has pain all over her body but mainly is concerned about her lumbar back pain. No radiation. Severity 10/10 on any movement. No fall since this one. Despite her clear rheumatoid arthritis changes she usuall lives very independantly (daughter lives next door) and uses no mobility aids, does all her cooking and finances. She defers to her son to make most of her medical decisions however. She does not think she has had a BM since her fall. Discussed with her son by patient request who is a pathologist and although he does live with her they talk daily. He reports a slight change in her mother's mental state which he relates to her taking opiates recently prescribed for her pain. Principal Diagnosis acute hyponatremia Discharge Exam General: no distress Eyes: normal inspection, PERLL Respiratory: chest non tender, clear to auscultation, normal breath sounds, no respiratory distress, no accessory muscle use Cardiac: regular rate and rhythm, no rub or gallop, no murmur, no edema, no jvd GI/: active bowel sounds, no abd pain or tenderness, soft, non distended Extremities: multiple areas of joint pain and arthritis changes, generalized weakenss Neuro/Psych: alert and oriented x 3, normal mood and affect Skin: normal color, dry Discharge Data Allergies Allergy/AdvReac Type Severity Reaction Status Date / Time meperidine Allergy Mild RESP ARREST Verified 09/21/19 00:16 midazolam Allergy Mild RESP ARREST Verified 09/21/19 00:16 amoxicillin Allergy Unknown FROM Verified 09/21/19 00:16 AUGMENTIN clavulanic acid Allergy Unknown Unknown Verified 09/21/19 00:16 codeine Allergy Unknown Unknown Verified 09/21/19 00:16 Penicillins Allergy Unknown Unknown Verified 09/21/19 00:16 promethazine [From Phenergan] Allergy Unknown Verified 09/21/19 00:16 latex AdvReac Intermediate Rash Verified 09/21/19 00:16 ibuprofen AdvReac Mild UPSETS HER Verified 09/21/19 00:16 STOMACH isosorbide [From Imdur] AdvReac headache Verified 09/21/19 00:16 Consultations 09/22/19 18:27 ED Decision to Admit Stat 09/22/19 22:34 Consult Pain Management Routine Ordered Studies 09/22/19 15:49 CT abd pelvis wo con Stat CT chest wo con Stat Hospital Course (1) Acute hyponatremia: Improving, sodium 132 today Likely related to poor intake - Urine Na 24, osm 186. Serum Na 123, osm 263; No obvious extra renal losses AM cortisol was 25 and TSH was normal. Continue Boost supplements, wind turbine erector consult - recommends eating frequent sn acks Encourage salt liberalization Sodium is improving with the improved po intake, IVF dc'd Patient felt stronger, agreeable to discharge. will dc on nucynta instead of oxycodone. (2) Left rib fracture: Pain management - see below Incentive spirometry (3) Osteoporosis with current pathological fracture: As above (4) Rheumatoid arthritis: Severe degenerative changes consisted with this diagnosis in both hands and feet. No current acute flare noted on exam. Bronchiectasis may be secondary to RA (5) Constipation: REsolved (6) Cervicalgia: Pain management recommendations as below. Poor candidate for interventional procedures Cervical CT on 09/20 without acute injury Continue lidocaine patch (7) Generalized pain: Mainly back. Reassuring Lumbar spine CT for no acute fractures. History of rheumatoid arthritis degenerative disease. Pain management consulted: Continue Celebrex 100mg PO daily Discontinued Oxycodone and started Nucynta 50 mg q4h prn - Patient had two doses overnight and though she had to sleep a good bit of the morning felt her pain was a bit better controlled today Lidoderm patches, voltaren (8) Fall: 09/19 CT abd/pelvis, chest, lumbar and cervical spine all without traumatic injury except for rib fracture. Head CT without abnormal findings Known pulmonary nodule stable to slightly increased - follow up outpatient (9) Osteoporosis: Continue raloxifene. Vitamin D level low - increased Vitamin D supplementation. (10) Leukocytosis: Resolved Likely secondary to fall (11) HTN (hypertension): stable Continue metoprolol succinate home dosing (12.5mg QAM and midday, 25mg QPM) Amlodipine 2.5mg PO daily (12) Obstructive sleep apnea: Per notes has nasal pillow but unable to tolerate mask, appears to be unable to tolerate home cpap per outpatient notes (13) Bronchiectasis: Mildly progressed from prior as per CT. Continue flutter valve Per outpatient notes, history of pseudomonas bronchitis. She started a regimen of moxifloxacin on per her son for increased coughing and sputum. Will continue home regimen while here Patient reports some cowart sputum production. No sob. 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, has not started treatment (15) Severe protein-calorie malnutrition: Consulted dietary Boost (16) HLD (hyperlipidemia): Will hold simvastatin given significant muscular pain at present (17) Asthma: Continue outpatient maintenance inhalers No acute exacerbation (18) Protein malnutrition: Consult wind turbine erector Boost supplements (19) Thrush: Continue Nystatin swish and swallow qid (20) DVT prophylaxis: Heparin 5000 units SQ BID Total Time Total Time Spent Total Time Spent (In Minutes): 32 Discharge Plan Discharge Items Patient Disposition: Home - Home Health Services Reason For Visit: GENERALIZED PAIN AFTER FALLING Discharge Diagnosis: Generalized pain. Activity: Resume your previous activity Non-emergency contact: Primary Care Provider Call non-emergency contact if: you have any medication questions Follow-up/Referrals: Kuldip Mckay MD [Primary Care Provider] - ([facility] AT OFFICE WILL HAVE TCM TEAM CALL PT WITH APPT FOR DR MCKAY. APPT WILL BE MADE 1-2 WKS REQUESTED.) Diet: Regular Diet Texture: Easy to Chew Addtl Attending Provider Instructions: You have been hospitalized for an acute medical problem. During your stay at [facility], we have made an effort to correct the problem that brought you to the hospital while keeping you as comfortable as possible. Medications were used to bring your condition under control and your discharge instructions will include directions for any medications you should take after leaving the hospital. Please make sure you see your Primary Care Provider as part of your follow up plan. Check BMP in 1 week. Followup with PCP in 1-2 weeks. Hlding simvastatin for pain Pending Studies at Discharge: No Stand-Alone Forms: [facility], Smoking Cessation Medications and DC Order Prescriptions: New nystatin 100,000 unit/mL Suspension 5 ml PO QID 12 Days Qty: 240 RF: 0 diclofenac sodium 1 % gel 2 g topical BID Qty: 100 RF: 0 acetaminophen [Mapap (acetaminophen)] 325 mg Tablet 650 mg PO Q4HWA Qty: 0 RF: 0 Nucynta 50 mg Tablet 50 mg PO Q4H PRN (Reason: severe pain (scale score 7-10)) Qty: 20 RF: 0 cholecalciferol (vitamin D3) 25 mcg (1,000 unit) Capsule 1,000 unit PO QAM Qty: 30 RF: 0 Continued metoprolol succinate 25 mg tablet extended release 24 hr See Rx Instructions PO TID Qty: 180 RF: 3 amlodipine 2.5 mg tablet 2.5 mg PO DAILY Qty: 30 RF: 2 calcium carbonate-vitamin D3 600 mg(1,500mg) -200 unit tablet 2 tab PO DAILY RF: 0 raloxifene 60 mg tablet 60 mg PO DAILY RF: 0 celecoxib [Celebrex] 100 mg capsule 100 mg PO DAILY PRN (Reason: Pain) RF: 0 aspirin 81 mg Tablet,Delayed Release (Dr/Ec) 81 mg PO 2XWK RF: 0 multivitamin [Multiple Vitamins] Tablet 1 tab PO DAILY RF: 0 lidocaine [Lidoderm] 5 % Adhesive Patch,Medicated 1 patch TOPICAL DAILY PRN (Reason: Pain) RF: 0 albuterol sulfate 90 mcg/actuation Hfa Aerosol Inhaler 2 puff INHALATION Q6H PRN (Reason: Shortness Of Breath Or Wheezing) RF: 0 moxifloxacin 400 mg tablet 200 mg PO BID RF: 0 Asmanex Twisthaler 220 mcg/ actuation (30) aerosol powdr breath activated 1 inh INHALATION QPM RF: 0 Discontinued simvastatin 10 mg tablet 10 mg PO HS Qty: 90 RF: 3 hydrocodone-acetaminophen 5-325 mg tablet 1 tab PO Q8H PRN (Reason: Pain) RF: 0 No Action lidocaine [Lidoderm] 5 % adhesive patch,medicated 1 patch TOP DAILY Qty: 30 RF: 5 Discharge Orders: Discharge Order (Routine); Ordered 09/28/19 Ordered By: Atilio Patton/Other Patient Handouts: ED Rib Fx Admission Data Admit Date/Time: 09/22/19 18:37 Attending Provider: Atilio Romo Admit Provider: Nelson Cortez Primary Care Provider: Kuldip Mckay Other Providers: Moreno Eaton ; Jairo Perez Other Interventions: Discharge Summary Assessment (RN) Last Done: 09/28/19 13:59 DC Date/Time DO NOT enter until pt leaves facility: 09/28/19 15:20 Coding Level of Care Code D/C Day Management >30 mins Diagnoses Acute hyponatremia E87.1 Left rib fracture S22.32XA Osteoporosis with current pathological fracture M80.00XA Rheumatoid arthritis M06.9 Constipation K59.00 Cervicalgia M54.2 Generalized pain R52 Fall W19.XXXA Osteoporosis M81.0 Leukocytosis D72.829 HTN (hypertension) I10 Hypertension type: essential hypertension Obstructive sleep apnea G47.33 Bronchiectasis J47.9 History of GRANT infection Z86.19 Severe protein-calorie malnutrition E43 HLD (hyperlipidemia) E78.5 Asthma J45.909 Protein malnutrition E46 Thrush B37.0 DVT prophylaxis Z29.9
== END 2019-09-28 15:20 | disposition home health service (06) | DRG 542 ==
LOC: ED 15:26 → SUATTDRO 18:37 → 3N 18:37